=== PATIENT | female | born 1960 | race Caucasian/White ===

== ENCOUNTER 2020-10-18 02:25 | Emergency (ER) | payer OTHER, SELFPAY ==
--- NOTE | 2020-10-18 | ECG_ITS ---
Test Reason : CHEST PAIN Blood Pressure : / mmHG Vent. Rate : 081 BPM Atrial Rate : 081 BPM P-R Int : 172 ms QRS Dur : 092 ms QT Int : 398 ms P-R-T Axes : 054 067 064 degrees QTc Int : 462 ms Normal sinus rhythm Normal ECG When compared with ECG of 18-OCT-2020 02:31, No significant change was found Referred By: Kristina Stauffer Electronically Signed By:FREDDIE BROOKS
--- NOTE | 2020-10-18 | ECG_ITS ---
Test Reason : CHEST PAIN Blood Pressure : / mmHG Vent. Rate : 078 BPM Atrial Rate : 078 BPM P-R Int : 160 ms QRS Dur : 098 ms QT Int : 384 ms P-R-T Axes : 047 050 054 degrees QTc Int : 437 ms Normal sinus rhythm Possible Left atrial enlargement Borderline ECG When compared with ECG of 17-JUL-2016 09:20, No significant change was found Referred By: Kristina Stauffer Electronically Signed By:FREDDIE BROOKS
--- NOTE | ~2020-10-18 | XR_ITS ---
EXAMINATION: XR CHEST CLINICAL INFORMATION: Chest pain COMPARISON: 01/10/2020 TECHNIQUE: Frontal view of the chest was obtained. FINDINGS: Cardiac leads overlie the chest. The lungs are well expanded. Bronchial wall thickening noted. There is no focal consolidation, edema, or effusion. No pneumothorax. The cardiomediastinal silhouette is within normal limits. No acute osseous abnormality. XR/XR chest 1V IMPRESSION: Bronchial wall thickening can be seen with a small airways process such as asthma or atypical/viral infection. .
[2020-10-18 02:36] VITALS: BP 159/85; PULSE 78; RESP 18; TEMP 36.2; O2SAT 93; BMI 44.7
[2020-10-18 02:49] VITALS: BP 189/83; PULSE 78; RESP 18; O2SAT 96
[2020-10-18 03:11] LABS: Basophils Absolute Auto 0.1 X10*3/uL (0.0-0.2); Basophils Percent Auto 0.5 % (0-2); Eosinophils Absolute Auto 0.2 X10*3/uL (0.0-0.4); Eosinophils Percent Auto 2.4 % (0-4); Hematocrit 44.2 % (37-47); Hemoglobin 14.7 g/dl (12.0-16.0); Imm Gran Abs Auto 0.05 X10*3/uL (0.00-0.03); Imm Gran Pct Auto 0.5 % (0.0-0.4); Lymphocytes Absolute Auto 1.7 X10*3/uL (1.2-4.9); Lymphocytes Percent Auto 18.6 % (20-40); MANUAL DIFF FLAG NO; Mean Corpuscular HGB Conc 33.3 g/dl (31.0-35.0); Mean Corpuscular Volume 84.2 fL (80-98); Mean Platelet Volume 10.3 fL (9.4-12.3); Monocytes Absolute Auto 0.4 X10*3/uL (0.1-1.2); Monocytes Percent Auto 4.6 % (2-11); Neutrophils Absolute Auto 6.7 X10*3/uL (2.0-8.3); Neutrophils Percent Auto 73.4 % (45-73); Platelet Count 365 X10*3/uL (160-400); Red Blood Count 5.25 X10*6/uL (4.20-5.50); Red Cell Distribution Width 14.8 % (11.0-16.0); White Blood Count 9.2 X10*3/uL (4.8-10.8)
--- NOTE | 2020-10-18 03:33 | ED.CHESTPAIN ---
HPI - Chest Pain General Chief Complaint: Chest Pain Stated Complaint: chest pain Time Seen by Provider: 10/18/20 03:28 Source: patient Mode of arrival: EMS Limitations: no limitations History of Present Illness HPI narrative: Patient comes emergency room complaining of chest pain. Patient states 2 hours ago she woke up to go to the restroom, and noticed that she had chest pain, and right arm heaviness. Patient took a nitroglycerin tablet, but tablet is old, already . Patient to get any ways. Patient states she is complaining with her medications, takes Brilinta at home. Patient states she has history of an IL, needed to stents in the past. At this time patient denies any shortness of breath. Patient states that since she got here the chest pain is gradually decreasing, now is 3/10 mild discomfort. Otherwise feeling well. Related Data Previous Rx's Medication Instructions Recorded amlodipine 10 mg tablet 10 mg PO DAILY #30 cap 03/25/20 metoprolol tartrate 100 mg tablet 100 mg PO BID 30 Days #60 cap 03/25/20 levothyroxine 88 mcg tablet 88 mcg PO DAILY 90 Days #90 tab 05/25/20 Allergies Allergy/AdvReac Type Severity Reaction Status Date / Time acetaminophen [From PERCOCET] Allergy Unknown N/V Verified 10/18/20 02:36 oxycodone [From PERCOCET] Allergy Unknown N/V Verified 10/18/20 02:36 Sulfa (Sulfonamide Allergy Unknown UNK, rash Verified 10/18/20 02:36 Antibiotics) [SULFA (SULFONAMIDE ANTIBIOTICS)] Review of Systems Review of Systems: Constitutional : No Weight loss, No Fever, No Chills, No Night Sweats, No Fatigue, No Malaise ENT/Mouth : No Hearing loss, No Ear Pain, No Nasal Congestion, No Sinus Pain, No Hoarseness, No sore throat, No Rhinorrhea, No Swallowing Difficulty Eyes: No Eye Pain, No Swelling, No Redness, No Foreign Body, No Discharge, No Vision Changes Cardiovascular : Complaining of substernal chest pain and right arm heaviness, No SOB, No Dyspnea on Exertion, No Orthopnea, No Edema, No Palpitations Respiratory : No Cough, No Sputum, No Wheezing, No Smoke Exposure, No Dyspnea Gastrointestinal : No Nausea, No Vomiting, No Diarrhea, No Constipation, No abdominal Pain, No Hematochezia, No Melena Genitourinary : no irregular bleeding, No Dysuria, No Urinary Frequency, No Hematuria, No Urinary Incontinence, No Urgency, No Flank Pain, No Urinary Flow Changes, No Hesitancy Musculoskeletal : No joint pain, No Myalgias, No Joint Swelling Skin : No Skin Lesions, No rash Neuro : No Weakness, No Numbness, No Paresthesias, No Loss of Consciousness, No Dizziness, No Headache Psych : No Anxiety/Panic, No Depression, No SI/HI/AH/VH, No Social Issues, Heme/Lymph: No Bruising, No Bleeding,No Lymphadenopathy Endocrine : No Polyuria, No Polydipsia, No Temperature Intolerance [facility] Past Medical History Medical History (Updated 10/18/20 @ 06:50 by Kristina Stauffer MD) 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 STEMI (ST elevation myocardial infarction) Social History Social History Patient Tobacco Use Status: Never used Tobacco Smoked in Last 30 Days: No Use of substances other than those prescribed or required for medical reasons: Yes Substance Use Type: Marijuana Substance Use Frequency: Occasionally Any prior treatment program specific to substance use: No Advance Directives: No Advance Directives Information Provided: No Patient : No Physical Exam Vital Signs: Vital Signs: Last Vital Signs Temp 97.2 F 10/18/20 02:36 Pulse 69 10/18/20 05:44 Resp 18 10/18/20 05:44 BP 156/70 H 10/18/20 05:44 Pulse Ox 96 10/18/20 05:44 Body Mass Index 44.7 Appearance: Alert. Oriented X3. No acute distress. Eyes: Pupils equal, round and reactive to light. ENT: Pharynx normal. Neck: Normal inspection. Neck supple. No lymph nodes noted. No crepitus CVS: Normal heart rate and rhythm. Pulses normal. Normal S1 and S2 Respiratory: No respiratory distress. Breath sounds normal. No Wheezing. No rales Abdomen: Soft and nontender. No rigidity. No distention. good BS x4 Skin: Skin warm and dry. Normal skin color. Normal skin turgor. Extremities: No lower extremity edema. No lower extremity edema. No Lacerations. No Rash Neuro: Oriented X 3. No motor deficit. No sensory deficit. Moving all extermities. No slurred speech. Course Course Course Narrative: Patient is asymptomatic. Patient's troponin went from 4.8-34.8 in 3 hours. Physician ulceration started at 5 in the morning. Order is a late entry. The 3rd troponin is due at 09:00, patient's vitals are stable, blood pressure 156/70, heart rate 69, oxygen saturation 96% on room air. Blood glucose 206 Sign-out given to Dr. Jamila TEAGUE - Chest Pain Lab Data Result diagrams: 10/18/20 03:05 10/18/20 03:05 Labs: Lab Results 10/18/20 10/18/20 10/18/20 Range/Units 03:05 03:05 03:05 WBC 9.2 (4.8-10.8) X10*3/uL RBC 5.25 (4.20-5.50) X10*6/uL Hgb 14.7 (12.0-16.0) g/dl Hct 44.2 (37-47) % MCV 84.2 (80-98) fL MCH 28.0 (27.0-33.0) pg MCHC 33.3 (31.0-35.0) g/dl RDW 14.8 (11.0-16.0) % Plt Count 365 (160-400) X10*3/uL MPV 10.3 (9.4-12.3) fL Immature Gran % (Auto) 0.5 H (0.0-0.4) % Neut % (Auto) 73.4 H (45-73) % Lymph % (Auto) 18.6 L (20-40) % Ocean % (Auto) 4.6 (2-11) % Eos % (Auto) 2.4 (0-4) % Baso % (Auto) 0.5 (0-2) % Lymph # (Auto) 1.7 (1.2-4.9) X10*3/uL Ocean # (Auto) 0.4 (0.1-1.2) X10*3/uL Eos # (Auto) 0.2 (0.0-0.4) X10*3/uL Baso # (Auto) 0.1 (0.0-0.2) X10*3/uL Abs Immat Gran (auto) 0.05 H (0.00-0.03) X10*3/uL Absolute Neuts (auto) 6.7 (2.0-8.3) X10*3/uL Absolute Nucleated RBC 0.000 (0.0-0.012) X10*3/uL Nucleated RBC % (auto) 0.0 (0.0-0.2) /100WBC Hold Blue Top SEE NOTE Sodium 135 (135-145) mmol/L Potassium 4.1 (3.3-5.1) mmol/L Chloride 100 (96-108) mmol/L Carbon Dioxide 22 (22-29) mmol/L Anion Gap 17 (12-20) BUN 15 (9-16) mg/dL Creatinine 0.83 (0.5-1.4) mg/dL Estim Creat Clear Calc 96.7 Estimated GFR > 60 Random Glucose 361 H* (60-115) mg/dL Calcium 9.3 (8.4-10.2) mg/dL Troponin I High Sens (<3.5-17.0) ng/L 10/18/20 10/18/20 Range/Units 03:05 05:58 WBC (4.8-10.8) X10*3/uL RBC (4.20-5.50) X10*6/uL Hgb (12.0-16.0) g/dl Hct (37-47) % MCV (80-98) fL MCH (27.0-33.0) pg MCHC (31.0-35.0) g/dl RDW (11.0-16.0) % Plt Count (160-400) X10*3/uL MPV (9.4-12.3) fL Immature Gran % (Auto) (0.0-0.4) % Neut % (Auto) (45-73) % Lymph % (Auto) (20-40) % Ocean % (Auto) (2-11) % Eos % (Auto) (0-4) % Baso % (Auto) (0-2) % Lymph # (Auto) (1.2-4.9) X10*3/uL Ocean # (Auto) (0.1-1.2) X10*3/uL Eos # (Auto) (0.0-0.4) X10*3/uL Baso # (Auto) (0.0-0.2) X10*3/uL Abs Immat Gran (auto) (0.00-0.03) X10*3/uL Absolute Neuts (auto) (2.0-8.3) X10*3/uL Absolute Nucleated RBC (0.0-0.012) X10*3/uL Nucleated RBC % (auto) (0.0-0.2) /100WBC Hold Blue Top Sodium (135-145) mmol/L Potassium (3.3-5.1) mmol/L Chloride (96-108) mmol/L Carbon Dioxide (22-29) mmol/L Anion Gap (12-20) BUN (9-16) mg/dL Creatinine (0.5-1.4) mg/dL Estim Creat Clear Calc Estimated GFR Random Glucose (60-115) mg/dL Calcium (8.4-10.2) mg/dL Troponin I High Sens 4.8 34.8 H* D (<3.5-17.0) ng/L ECG Data ECG #1: Attestation: I personally reviewed and interpreted this ECG as follows: (Heart rate 78, sinus rhythm, no ST segment depression or elevation, no T-wave inversion. QTC 437) Discharge Plan Discharge Clinical Impression: Chest pain, Acute hyperglycemia Prescriptions: No Action amlodipine 10 mg tablet 10 mg PO DAILY Qty: 30 RF: 6 metoprolol tartrate 100 mg tablet 100 mg PO BID 30 Days Qty: 60 RF: 6 levothyroxine 88 mcg tablet 88 mcg PO DAILY 90 Days Qty: 90 RF: 1
[2020-10-18 03:50] LABS: Troponin-I High Sensitivity 4.8 ng/L (<3.5-17.0)
[2020-10-18 03:55] LABS: Anion Gap 17 (12-20); Blood Urea Nitrogen 15 mg/dL (9-16); Calcium 9.3 mg/dL (8.4-10.2); Carbon Dioxide 22 mmol/L (22-29); Chloride 100 mmol/L (96-108); Creatinine Clr Calc Pharmacy 96.7; Estimated Glomerular Filt Rate > 60; Glucose Random 361 mg/dL (60-115); Potassium 4.1 mmol/L (3.3-5.1); Sodium 135 mmol/L (135-145)
[2020-10-18] MEDS: Aspirin Enteric Coated 325 MG TABLET.DR PO (04:04)
[2020-10-18] MEDS: Insulin Regular, Human 100 UNIT/ML 3 ML VIAL 10 UNIT IVPUSH (05:41)
[2020-10-18] MEDS: 0.9 % Sodium Chloride 1,000 ML 999 ML IVCONT (05:43)
[2020-10-18 05:44] VITALS: BP 156/70; PULSE 69; RESP 18; O2SAT 96
[2020-10-18 06:40] LABS: Troponin-I High Sensitivity 34.8 ng/L (<3.5-17.0)
[2020-10-18 06:51] LABS: Glucose, Whole Blood 208 mg/dL (60-115)
[2020-10-18 07:22] VITALS: BMI 47.9
[2020-10-18 07:30] VITALS: BP 172/74; PULSE 80; RESP 19; O2SAT 95
[2020-10-18 07:48] LABS: Prothrombin Time 11.4 SEC (10.8-13.0)
[2020-10-18 07:50] LABS: COVID-19 Test Negative (Negative); IDNOW Serial# 9DD0AD1C
[2020-10-18 07:51] LABS: Partial Thromboplastin Time 31.6 SEC (24.1-38.0)
[2020-10-18] MEDS: Heparin Sodium,Porcine 5,000 UNIT/ML VIAL 4000 UNIT IVPUSH (07:51)
[2020-10-18] MEDS: Heparin Sodium,Porcine/1/2NS 25,000 UNIT/250 ML IV.SOLN 10 UNIT IVCONT (07:51)
[2020-10-18 07:57] LABS: Glucose, Whole Blood 217 mg/dL (60-115)
--- NOTE | 2020-10-18 08:12 | PC.NURSE ---
HEPARIN DRIP STARTED, PLAN FOR TRANSFER TO [facility]. PATIENT AWARE.
--- NOTE | 2020-10-18 08:35 | PC.NURSE ---
cardiology at bedside with patient
--- NOTE | 2020-10-18 08:46 | PC.NURSE ---
pt accepted at [facility] 7 rm [id number] [phone]
[2020-10-18 08:47] VITALS: BP 181/67; PULSE 77
[2020-10-18] MEDS: amLODIPine Besylate 10 MG TABLET PO (08:47)
[2020-10-18] MEDS: Metoprolol Tartrate 100 MG TABLET PO (08:47)
[2020-10-18 09:12] LABS: INTERNATIONAL NORM RATIO 1.1 (0.9-1.1); Prothrombin Time 12.6 SEC (10.8-13.0)
--- NOTE | 2020-10-18 09:14 | PC.NURSE ---
call was made to [facility] for report on transfer, RN to call back. EMS here for pt transfer.
--- NOTE | 2020-10-18 09:20 | PM.CNCAR ---
History of Present Illness History of Present Illness Date of Service: 10/18/20 Consult reason: chest pain Chief complaint: chest pain Narrative: This is a cardiology consultation regarding chest pain and elevated troponins. Patient has a history of coronary disease. She initially underwent cardiac catheterization more than 10 years ago in [facility] that apparently revealed nonobstructive disease but patient and no interventions were performed. Subsequently, she had another cardiac catheterization in 2017. At that time, she received drug-eluting stents in the LAD/Cx. Is She states that she was doing fine all along. Last night around 01:00 o'clock or so she developed chest pain that radiated to the right arm. Her right arm felt very heavy. Chest pain itself felt like a pressure. Nitro did not help. Then she was seen in the ER and it seems as though the pain lasted for about 1-2 hours. Currently she is completely pain free. Otherwise she is fairly active without any specific concerns. She states that since the last stent she did have any cardiac issues whatsoever and she follows up with . Review of Systems Review of Systems: Yes all other systems are reviewed and are negative Cardiovascular: Cardiovascular: Reports as per HPI, Reports no additional cardiovascular complaints, Denies acrocyanosis, Denies cool extremities, Denies painful fingertips, Reports chest pain, Reports chest pain at rest, Denies diaphoresis, Denies syncope, Denies irregular heart rhythm, Denies claudication, Denies leg edema, Denies lightheadedness, Denies palpitations and Denies dyspnea Respiratory: Respiratory: Denies dyspnea Neurologic: Denies syncope Endocrine: Endocrine: Denies palpitations [facility] Past Medical History Medical History (Updated 10/18/20 @ 09:47 by Maxx Tracey MD) Atherosclerotic cardiovascular disease Essential hypertension 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 STEMI (ST elevation myocardial infarction) Social History Social History Patient Tobacco Use Status: Never used Tobacco Smoked in Last 30 Days: No Use of substances other than those prescribed or required for medical reasons: Yes Substance Use Type: Marijuana Substance Use Frequency: Occasionally Any prior treatment program specific to substance use: No Advance Directives: No Advance Directives Information Provided: No Patient : No Meds Allergies Allergy/AdvReac Type Severity Reaction Status Date / Time acetaminophen [From PERCOCET] Allergy Unknown N/V Verified 10/18/20 02:36 oxycodone [From PERCOCET] Allergy Unknown N/V Verified 10/18/20 02:36 Sulfa (Sulfonamide Allergy Unknown UNK, rash Verified 10/18/20 02:36 Antibiotics) [SULFA (SULFONAMIDE ANTIBIOTICS)] Active Medications: Home medications reviewed. Physical Exam Vital Signs: Vital Signs: Last Vital Signs Temp 97.2 F 10/18/20 02:36 Pulse 77 10/18/20 08:47 Resp 19 10/18/20 07:30 BP 181/67 H 10/18/20 08:47 Pulse Ox 95 10/18/20 07:30 Body Mass Index 47.9 Const: General: cooperative, comfortable and no acute distress Orientation/consciousness: patient oriented x3 HENMT: Other: Unremarkable Neck: Neck: Yes normal visual inspection Chest: Chest palpation & inspection: normal inspection of the chest Resp: Auscultation: clear to auscultation bilaterally, no crackles and no wheezes Cardio: Jugular venous distension: no JVD Palpation: normal PMI Heart sounds: S1 normal heart sound present, S2 normal heart sound present, no gallops, no murmurs and no rubs GI: Palpation (GI): Soft to palpation Back/Spine/Pelvis: Other: unremarkable Skin: General skin exam: no rashes or lesions noted Neuro: General: patient oriented x3 Extrem: General: Yes no clubbing, cyanosis or edema Psych: Mental Status: mental status grossly normal Results Labs and Meds Result diagrams: 10/18/20 03:05 10/18/20 03:05 Lab results: Laboratory Results - last 24 hr 10/18/20 10/18/20 10/18/20 03:05 03:05 03:05 WBC 9.2 RBC 5.25 Hgb 14.7 Hct 44.2 MCV 84.2 MCH 28.0 MCHC 33.3 RDW 14.8 Plt Count 365 MPV 10.3 Immature Gran % (Auto) 0.5 H Neut % (Auto) 73.4 H Lymph % (Auto) 18.6 L Coles % (Auto) 4.6 Eos % (Auto) 2.4 Baso % (Auto) 0.5 Lymph # (Auto) 1.7 Coles # (Auto) 0.4 Eos # (Auto) 0.2 Baso # (Auto) 0.1 Abs Immat Gran (auto) 0.05 H Absolute Neuts (auto) 6.7 Absolute Nucleated RBC 0.000 Nucleated RBC % (auto) 0.0 PT Cancelled INR Cancelled APTT Cancelled Hold Blue Top Cancelled Sodium 135 Potassium 4.1 Chloride 100 Carbon Dioxide 22 Anion Gap 17 BUN 15 Creatinine 0.83 Estim Creat Clear Calc 96.7 Estimated GFR > 60 POC Glucose Random Glucose 361 H* Calcium 9.3 Troponin I High Sens COVID-19 (LEONEL) [employer] 10/18/20 10/18/20 10/18/20 03:05 05:58 06:46 WBC RBC Hgb Hct MCV MCH MCHC RDW Plt Count MPV Immature Gran % (Auto) Neut % (Auto) Lymph % (Auto) Coles % (Auto) Eos % (Auto) Baso % (Auto) Lymph # (Auto) Coles # (Auto) Eos # (Auto) Baso # (Auto) Abs Immat Gran (auto) Absolute Neuts (auto) Absolute Nucleated RBC Nucleated RBC % (auto) PT INR APTT Hold Blue Top Sodium Potassium Chloride Carbon Dioxide Anion Gap BUN Creatinine Estim Creat Clear Calc Estimated GFR POC Glucose 208 H Random Glucose Calcium Troponin I High Sens 4.8 34.8 H* D COVID-19 (LEONEL) DX [facility] 10/18/20 10/18/20 10/18/20 07:24 07:26 07:48 WBC RBC Hgb Hct MCV MCH MCHC RDW Plt Count MPV Immature Gran % (Auto) Neut % (Auto) Lymph % (Auto) Coles % (Auto) Eos % (Auto) Baso % (Auto) Lymph # (Auto) Coles # (Auto) Eos # (Auto) Baso # (Auto) Abs Immat Gran (auto) Absolute Neuts (auto) Absolute Nucleated RBC Nucleated RBC % (auto) PT 11.4 INR 1.0 APTT 31.6 Hold Blue Top Sodium Potassium Chloride Carbon Dioxide Anion Gap BUN Creatinine Estim Creat Clear Calc Estimated GFR POC Glucose 217 H Random Glucose Calcium Troponin I High Sens COVID-19 (LEONEL) Negative [facility] See Note 10/18/20 08:58 WBC RBC Hgb Hct MCV MCH MCHC RDW Plt Count MPV Immature Gran % (Auto) Neut % (Auto) Lymph % (Auto) Coles % (Auto) Eos % (Auto) Baso % (Auto) Lymph # (Auto) Coles # (Auto) Eos # (Auto) Baso # (Auto) Abs Immat Gran (auto) Absolute Neuts (auto) Absolute Nucleated RBC Nucleated RBC % (auto) PT 12.6 INR 1.1 APTT Hold Blue Top Sodium Potassium Chloride Carbon Dioxide Anion Gap BUN Creatinine Estim Creat Clear Calc Estimated GFR POC Glucose Random Glucose Calcium Troponin I High Sens COVID-19 (LEONEL) COVID-19 Clin Com ECG Attestation: I personally reviewed and interpreted this ECG as follows: Interpretation: EKG with sinus rhythm at 81/Min; no significant ST-T changes and otherwise unremarkable. Imaging Radiologist's impression: Impressions Chest X-Ray 10/18/20 02:55 IMPRESSION: Bronchial wall thickening can be seen with a small airways process such as asthma or atypical/viral infection. . Assessment and Plan (1) NSTEMI (non-ST elevated myocardial infarction): Status: Acute (2) Atherosclerotic cardiovascular disease: Status: Acute (3) Essential hypertension: Status: Acute Her blood pressure is running on the higher side and most recent blood pressure is 181/67 mm Hg. Last cardiac catheterization from 2017 reviewed. She had a 80% lesion in the mid LAD as well as mid circumflex for which she received drug-eluting stents. She had moderate disease in RCA and 60% PDA lesion. Troponins so far are 4.8, 34.8 and 76.4. Clearly, she has having a non ST elevation myocardial infarction. We can keep her on IV heparin drip. Aspirin, beta-blockers and statins. Her blood pressure is running on the higher side and she can receive her home doses of medications including amlodipine. Otherwise, patient is to be transferred to [facility] for cardiac catheterization. 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 Discussed with ER physician, . Procedures Date of Service Date of Service: 10/18/20
[2020-10-18 09:46] LABS: Troponin-I High Sensitivity 76.4 ng/L (<3.5-17.0)
== END 2020-10-18 09:16 | disposition short-term general hospital (02) ==
PROVIDERS: Emergency Medicine; Emergency Provider Emergency Medicine; PCP Internal Medicine
DX: R07.9 Chest pain, unspecified (principal); E11.65 Type 2 diabetes mellitus with hyperglycemia; Z20.822 Contact with and (suspected) exposure to COVID-19; F12.90 Cannabis use, unspecified, uncomplicated; I10 Essential (primary) hypertension; I25.2 Old myocardial infarction; I25.10 Atherosclerotic heart disease of native coronary artery without angina pectoris; Z79.899 Other long term (current) drug therapy
CPT/HCPCS: 36415; 71045; 80048; 82947; 84484; 85025; 85610; 85730; 87635; 93005; 96361; 96374; 96375; 96376; 99285; 99291

== ENCOUNTER 2021-02-08 07:10 | Outpatient (REF) | payer OTHER, SELFPAY ==
[2021-02-08 08:42] LABS: Thyroid Stimulating Hormone 2.08 uIU/mL (0.32-4.0)
[2021-02-08 10:17] LABS: Alanine Aminotransferase 29 U/L (0-31); Albumin Level 4.3 g/dL (3.5-5.0); Alkaline Phosphatase 142 U/L (39-117); Anion Gap 17 (12-20); Aspartate Amino Transferase 27 U/L (5-31); Bilirubin Total 0.6 mg/dL (0.0-1.0); Blood Urea Nitrogen 17 mg/dL (9-16); Calcium 9.4 mg/dL (8.4-10.2); Carbon Dioxide 24 mmol/L (22-29); Chloride 104 mmol/L (96-108); Cholesterol 142 mg/dL; Estimated Glomerular Filt Rate > 60; Glucose Fasting 121 mg/dL (60-99); HDL Cholesterol 35 mg/dL; LDL Cholesterol Calculated 72 mg/dl; Potassium 4.5 mmol/L (3.3-5.1); Sodium 140 mmol/L (135-145); Total Protein 7.8 g/dL (6.5-8.0); Triglycerides 179 mg/dL
[2021-02-08 10:28] LABS: Creatinine Urine 94.36 mg/dL; Microalbum/Creatinine Ratio Ur 28.6 ug/mg cr
[2021-02-08 10:50] LABS: Estimated Average Glucose 128 mg/dL; Hemoglobin A1c % 6.1 %
== END 2021-02-08 07:11 | disposition home or self-care (01) ==
LOC: HO.LAB 07:10
PROVIDERS: PCP Internal Medicine; Visit Provider Internal Medicine
DX: E03.9 Hypothyroidism, unspecified (principal); E78.5 Hyperlipidemia, unspecified; I21.4 Non-ST elevation (NSTEMI) myocardial infarction; E11.40 Type 2 diabetes mellitus with diabetic neuropathy, unspecified
CPT/HCPCS: 36415; 80053; 80061; 82043; 83036; 84443

== ENCOUNTER 2021-04-04 14:21 | Outpatient (REF) | payer OTHER, SELFPAY ==
--- NOTE | ~2021-04-04 | US_ITS ---
EXAMINATION: US DIAGNOSTIC ULTRASOUND BREAST, RIGHT CLINICAL INFORMATION: Prominent axillary lymph nodes. COMPARISON: Mammography of same day. TECHNIQUE: Ultrasound of the breast is performed with real-time murillo scale imaging and color Doppler. FINDINGS: Targeted right breast ultrasound demonstrated a 4 x 3 mm was circumscribed density 10:00 position adjacent to vessel and corresponding in size and location to the mammographic finding. This has a fatty cleft and hilar vascularity consistent with a normal intramammary lymph node. About the axilla there are multiple prominent lymph nodes with cortical thickness is up to 5 mm in diameter but which does not demonstrate any lobulation and there are normal fatty clefts and vasculature present. Results are discussed with the patient at time of visit. US/US breast RT limited IMPRESSION: No specific mammographic or ultrasound findings to suggest malignancy. Prominent right axillary lymph nodes. ASSESSMENT: BI-RADS 2: Benign RECOMMENDATION: Routine annual mammography screening.
--- NOTE | ~2021-04-04 | MM_ITS ---
EXAMINATION: MM DIAGNOSTIC DIGITAL BREAST TOMOSYNTHESIS, BILATERAL US BREAST TARGETED, BILATERAL CLINICAL INFORMATION: Left breast lump 3 o'clock position. The lifetime risk of breast cancer based on the Tyrer-Cuzick Model is 20%. Additional annual screening with breast MRI may be of benefit in women with a Score of 20% or greater. COMPARISON: Mammography: None. TECHNIQUE: Digital breast tomosynthesis is performed in both the craniocaudal and mediolateral oblique views along with computer-aided detection (CAD). Synthesized 2-D images are generated from the tomosynthesis. Targeted bilateral breast ultrasound. FINDINGS: The breasts are almost entirely fatty (ACR BI-RADS breast composition Category a). Within the deep upper outer aspect of the right breast, there is a circumscribed 6 x 4 mm density without definite fatty cleft lying approximately 16 cm from the nipple. No suspicious grouping of microcalcifications identified. There are prominent axillary lymph nodes some of which appear to have thickened cortices. Left breast study did not demonstrate any abnormal dominant mass or suspicious grouping of microcalcifications. Targeted right breast ultrasound demonstrated a 4 x 3 mm well circumscribed density 10 o'clock position adjacent to vessel and corresponding in size and location to the mammographic finding. This has a fatty cleft and hilar vascularity consistent with a normal intramammary lymph node. About the axilla, there are multiple prominent lymph nodes with cortical thickness up to 5 mm in diameter but which does not demonstrate any lobulation, and there are normal fatty clefts and vasculature present. Targeted ultrasound evaluation to palpable region left breast 3 o'clock position 11 cm from the nipple, demonstrated a dermal lesion measuring approximately 10 x 2 mm in size. No suspicious cystic or solid mass is identified. No region of abnormal distal sound shadowing is seen. Results are discussed with the patient at time of visit. MM/MM tomosynthesis diagnostic BI IMPRESSION: No specific mammographic or ultrasound findings to suggest malignancy. Prominent right axillary lymph nodes. ASSESSMENT: BI-RADS 2: Benign. RECOMMENDATION: Routine annual mammography screening. This patient's information was entered into a reminder system with a target due date for their next mammogram.
--- NOTE | ~2021-04-04 | US_ITS ---
EXAMINATION: US DIAGNOSTIC ULTRASOUND BREAST, LEFT CLINICAL INFORMATION: Palpable abnormality. COMPARISON: Mammography of same day. TECHNIQUE: Ultrasound of the breast is performed with real-time murillo scale imaging and color Doppler. FINDINGS: Targeted ultrasound evaluation to palpable region left breast 3:00 position 11 cm from the nipple demonstrated a dermal lesion measuring approximately 10 x 2 mm in size. No suspicious cystic or solid mass is identified. No region of abnormal distal sound shadowing is seen. Results are discussed with the patient at time of visit. US/US breast LT limited IMPRESSION: No specific mammographic or ultrasound findings to suggest malignancy. Prominent right axillary lymph nodes. ASSESSMENT: BI-RADS 2: Benign RECOMMENDATION: Routine annual mammography screening.
== END 2021-04-04 14:22 | disposition home or self-care (01) ==
LOC: HO.MAMMO 14:21
PROVIDERS: Visit Provider Internal Medicine
DX: N63.25 Unspecified lump in the left breast, overlapping quadrants (principal); R59.0 Localized enlarged lymph nodes
CPT/HCPCS: 76642; 77062; 77066

== ENCOUNTER → 2021-07-15 07:41 | Outpatient (BNVA) | payer OTHER, SELFPAY | PROVIDERS: Referring Provider Internal Medicine; Visit Provider Psychiatry & Neurology Neurology ==

== ENCOUNTER 2021-08-16 06:57 | Outpatient (REF) | payer OTHER, SELFPAY ==
[2021-08-16 08:23] LABS: Rheumatoid Factor 18.1 IU/mL (<15.0)
[2021-08-16 08:24] LABS: Cholesterol 153 mg/dL; HDL Cholesterol 37 mg/dL; LDL Cholesterol Calculated 85 mg/dl; Triglycerides 157 mg/dL
[2021-08-16 08:47] LABS: Creatinine Urine 83.99 mg/dL; Microalbum/Creatinine Ratio Ur 46.4 ug/mg cr
[2021-08-16 08:47] LABS: Thyroid Stimulating Hormone 2.19 uIU/mL (0.32-4.0)
[2021-08-19 21:52] LABS: Anti Nuclear Antibody Screen POSITIVE (NEGATIVE)
[2021-08-21 12:31] LABS: Vitamin D 25-OH, D2 <4 ng/mL; Vitamin D 25-OH, D3 17 ng/mL; Vitamin D 25-OH, Total 17 ng/mL (30-100)
== END 2021-08-16 06:58 | disposition home or self-care (01) ==
LOC: HO.LAB 06:57
PROVIDERS: Nurse Practitioner Family; PCP Internal Medicine; Visit Provider Internal Medicine
DX: E78.5 Hyperlipidemia, unspecified (principal); E11.9 Type 2 diabetes mellitus without complications; R21 Rash and other nonspecific skin eruption; E03.9 Hypothyroidism, unspecified; E55.9 Vitamin D deficiency, unspecified
CPT/HCPCS: 36415; 80061; 82043; 82306; 84443; 86038; 86039; 86431

== ENCOUNTER → 2021-08-27 15:49 | Outpatient (REF) | payer OTHER, SELFPAY | LOC: HO.SL 15:49 | PROVIDERS: PCP Internal Medicine; Visit Provider Psychiatry & Neurology Neurology | DX: G47.33 Obstructive sleep apnea (adult) (pediatric) (principal); R06.83 Snoring; R40.0 Somnolence | CPT/HCPCS: 95806 ==

== ENCOUNTER 2021-09-05 14:16 | Outpatient (REF) | payer OTHER, SELFPAY ==
[2021-09-11 04:28] LABS: HPV mRNA E6/E7 rflx Not Detected (Not Detected)
== END 2021-09-05 14:17 | disposition home or self-care (01) ==
LOC: HO.LAB 14:16
PROVIDERS: Visit Provider Advanced Practice Midwife
DX: Z01.411 Encounter for gynecological examination (general) (routine) with abnormal findings (principal); Z11.51 Encounter for screening for human papillomavirus (HPV); R10.2 Pelvic and perineal pain; R21 Rash and other nonspecific skin eruption; Z80.9 Family history of malignant neoplasm, unspecified
CPT/HCPCS: 87624; 88142

== ENCOUNTER 2021-10-06 14:15 | Outpatient (REF) | payer OTHER, SELFPAY ==
--- NOTE | ~2021-10-06 | XR_ITS ---
EXAMINATION: XR SACROILIAC JOINTS CLINICAL INFORMATION: Lower back pain. COMPARISON: None TECHNIQUE: AP and bilateral Judet views of the sacroiliac joints FINDINGS: Bony alignment and mineralization are normal. No fracture. Alignment is anatomic. Sacroiliac joint spaces are well-maintained without erosions or surrounding sclerosis. There is marked degenerative change of the right hip, with superior joint space narrowing and subchondral cyst formation. There are incompletely characterized degenerative changes of the lower lumbar spine. XR/XR sacroiliac joint min 3V IMPRESSION: 1. Unremarkable bilateral sacroiliac joints. 2. There is marked osteoarthritic change of the right hip. 3. There is degenerative change of the lower lumbar spine.
--- NOTE | ~2021-10-06 | XR_ITS ---
EXAMINATION: XR KNEE, RIGHT CLINICAL INFORMATION: Pain. COMPARISON: Radiographs dated 01/18/2015. TECHNIQUE: AP, lateral, tunnel, and sunrise views of the right knee. FINDINGS: Bones and soft tissues are normal. No fracture or joint effusion. Alignment is anatomic. Joint spaces are well maintained. No abnormal soft tissue calcification. XR/XR knee RT 3V IMPRESSION: Normal right knee.
[2021-10-06 16:39] LABS: MANUAL DIFF FLAG NO
[2021-10-06 16:43] LABS: Basophils Percent Auto 0.4 % (0-2); Eosinophils Absolute Auto 0.2 X10*3/uL (0.0-0.4); Eosinophils Percent Auto 2.6 % (0-4); Hematocrit 43.5 % (37.0-47.0); Hemoglobin 14.2 g/dl (12.0-16.0); Imm Gran Abs Auto 0.05 X10*3/uL (0.00-0.03); Imm Gran Pct Auto 0.7 % (0.0-0.4); Lymphocytes Absolute Auto 1.8 X10*3/uL (1.2-4.9); Lymphocytes Percent Auto 23.4 % (20-40); Mean Corpuscular HGB Conc 32.6 g/dl (31.0-35.0); Mean Corpuscular Volume 85.8 fL (80.0-98.0); Mean Platelet Volume 11.7 fL (9.4-12.3); Monocytes Absolute Auto 0.5 X10*3/uL (0.1-1.2); Monocytes Percent Auto 6.9 % (2-11); Neutrophils Absolute Auto 5.1 x10*3/uL (2.0-8.3); Platelet Count 299 X10*3/uL (160-400); Red Blood Count 5.07 X10*6/uL (4.20-5.50); Red Cell Distribution Width 15.4 % (11.0-16.0); White Blood Count 7.7 X10*3/uL (4.8-10.8)
[2021-10-06 17:10] LABS: Alanine Aminotransferase 40 U/L (0-31); Albumin Level 4.3 g/dL (3.5-5.0); Alkaline Phosphatase 181 U/L (39-117); Anion Gap 14 (12-20); Aspartate Amino Transferase 34 U/L (5-31); Bilirubin Total 0.5 mg/dL (0.0-1.0); Blood Urea Nitrogen 24 mg/dL (9-16); C Reactive Protein 1.07 mg/dL (< or = 0.50); Calcium 10.6 mg/dL (8.4-10.2); Carbon Dioxide 25 mmol/L (22-29); Chloride 105 mmol/L (96-108); Creatinine Clr Calc Pharmacy 85.8; Estimated Glomerular Filt Rate > 60; Glucose Random 118 mg/dL (60-115); Potassium 4.5 mmol/L (3.3-5.1); Sodium 139 mmol/L (135-145); Total Protein 8.5 g/dL (6.5-8.0)
[2021-10-06 17:26] LABS: Erythrocyte Sedimentation Rate 25 MM/HR (0-20)
[2021-11-03 08:49] LABS: Anti DNA DS Antibody <1; SM/Ribonucleoprotein Ab <1.0 NEG; Smith Protein <1.0 NEG
== END 2021-10-06 14:16 | disposition home or self-care (01) ==
LOC: HO.XRAY 14:15
PROVIDERS: PCP Internal Medicine; Visit Provider Internal Medicine Rheumatology
DX: R76.8 Other specified abnormal immunological findings in serum (principal); M25.561 Pain in right knee; M54.50 Low back pain, unspecified
CPT/HCPCS: 36415; 72202; 73562; 80053; 85025; 85652; 86140; 86225; 86235

== ENCOUNTER 2022-01-24 20:42 | Emergency (ER) | payer OTHER, SELFPAY ==
[2022-01-24 22:16] VITALS: BP 164/84; PULSE 87; RESP 20; TEMP 36.9; O2SAT 95; BMI 34.1
[2022-01-24 23:57] VITALS: BP 164/80; PULSE 89; RESP 16; TEMP 36.9; O2SAT 95
[2022-01-25 01:21] VITALS: BP 171/87; PULSE 92; RESP 18; TEMP 36.8; O2SAT 95
--- NOTE | 2022-01-25 01:27 | ED_ITS ---
HPI - General Adult General Chief complaint: General Medical Stated complaint: possible bowel obstruction Time Seen by Provider: 01/25/22 01:27 Source: patient Mode of arrival: ambulatory History of Present Illness HPI narrative: 61-year-old female presents with complaints of 4 days difficulty with having bowel movements, she has tried stool softeners and denies any associated fever, chills, nausea, vomiting and says that this afternoon she uses some rectal suppositories and has had 1 small bowel movement but states that she still feels like there is more . She denies any abdominal distension or urinary pain/burning / frequency. Related Data Home Medications Medication Instructions Recorded Confirmed aspirin 81 mg tablet,delayed 81 mg PO DAILY 10/30/20 12/22/21 release (Adult Low Dose Aspirin) atorvastatin 80 mg tablet 80 mg PO DAILY 10/30/20 12/22/21 isosorbide mononitrate 30 mg 90 mg PO DAILY 10/30/20 12/22/21 tablet,extended release 24 hr diphenhydramine 25 2 tab PO BEDTIME sleep 10/06/21 12/22/21 mg-acetaminophen 500 mg tablet (Tylenol PM Extra Strength) Previous Rx's Medication Instructions Recorded desonide 0.05 % lotion 1 appl topical BEDTIME 14 days #59 07/04/21 mL metoprolol tartrate 50 mg tablet 50 mg PO BID #180 tabs 11/24/21 amlodipine 10 mg tablet 10 mg PO DAILY #30 caps 12/21/21 azithromycin 250 mg tablet 250 mg PO DAILY 5 days #6 tabs 12/22/21 meloxicam 15 mg tablet 15 mg PO DAILY 90 days #90 tabs 12/26/21 levothyroxine 88 mcg tablet 88 mcg PO DAILY #90 tabs 01/12/22 linagliptin 5 mg tablet (Tradjenta) 5 mg PO DAILY #90 tabs 01/12/22 tramadol 50 mg tablet 50 mg PO Q6H PRN pain 30 days #120 01/12/22 tabs Allergies Allergy/AdvReac Type Severity Reaction Status Date / Time oxycodone [From PERCOCET] Allergy Intermediate N/V Verified 01/24/22 22:23 Sulfa (Sulfonamide Allergy Intermediate UNK, rash Verified 01/24/22 22:23 Antibiotics) [SULFA (SULFONAMIDE ANTIBIOTICS)] metformin AdvReac Severe diarrhea Verified 01/24/22 22:23 Review of Systems Review of Systems: Pertinent positives and negatives as stated in HPI 10 point review of systems is otherwise negative. PMFSH Past Medical History Source: nursing notes reviewed Medical History Abscess LORENA positive Atherosclerotic cardiovascular disease Breast lesion Diabetes mellitus Essential hypertension 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 Hypothyroidism Lower back pain Morbid obesity with BMI of 40.0-44.9, adult Pain, joint, knee, right Right knee pain STEMI (ST elevation myocardial infarction) Suppurative hidradenitis Surgical History H/O cardiac catheterization Family History Family History Mother Hypertension Father Heart disease Sister Ovarian cancer Maternal Grandmother Diabetes Other Mental health disorder Substance use disorder Social History Social History Housing: Condominium Alcohol intake: current Alcohol intake frequency: holidays/special occasions only Patient Tobacco Use Status: Former Tobacco user Tobacco use type: Cigarette e-Cigarette/Vaping Use: Never Used Second Hand Smoke Exposure: No Substance Use Type: Marijuana Advance Directives: No Advance Directives Information Provided: No service: No Current occupational status: employed 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 GENERAL: Well developed, well nourished, in no acute distress. HEAD: Normocephalic/atraumatic EYES: PERRLA, EOMI EARS: Ext canals without abnormality OROPHARYNX: no oral lesions noted, posterior pharynx clear LUNGS: Normal breath sounds. No adventitious sounds or accessory muscle use. SpO2<95> CARDIOVASCULAR: Regular rate and rhythm without noted murmurs ABDOMEN: Soft, non-tender, non-distended with bowel sounds. RECTAL: No skin tags, fissures, inflamed external hemorrhoids, initially soft stool and then more proximal firm stool is noted, good rectal tone, no gross blood on tip of finger, there is surrounding erythema to suggest irritation MUSCULOSKELETAL: No tenderness, deformities, or effusions noted on gross inspection. EXTREMITIES: No cyanosis, clubbing or edema. SKIN: Inspection of the skin reveals no rashes NEUROLOGIC: Alert and oriented x 4. Strength and sensation to light touch were grossly intact x 4. Course Course Course Narrative: 61-year-old female with history and clinical presentation consistent with constipation that appears to be gradually improving and likely impending bowel movement. Discussed with patient the need for additional laboratory investigations as well as KUB, she does not feel strongly in pursuing this and based on clinical exam and history I strongly agree as there is no evidence to suggest infection, acute bleeding, obstruction. Patient otherwise appears well and is discharged home in stable condition with strict instructions to return should she develop worsening symptoms. Discharge Plan Discharge Clinical Impression: Constipation, Diabetes mellitus Patient Disposition: Home, Self-Care Instructions: High Fiber Diet (ED), Fleet Enema (ED), Constipation (ED) Additional Instructions: 1. Resume all home medications as prescribed. 2. Recommend increasing water intake, may utilize techniques such as warm bath water or other relax a hernandez methods to help facilitate bowel movement. 3. Follow-up with your physician on Wednesday morning. Do not hesitate to return to the emergency room should you experience any worsening of symptoms. Prescriptions: No Action metoprolol tartrate 50 mg tablet 50 mg PO BID Qty: 180 0RF amlodipine 10 mg tablet 10 mg PO DAILY Qty: 30 6RF meloxicam 15 mg tablet 15 mg PO DAILY 90 Days Qty: 90 1RF Tradjenta 5 mg tablet 5 mg PO DAILY Qty: 90 0RF levothyroxine 88 mcg tablet 88 mcg PO DAILY Qty: 90 0RF tramadol 50 mg tablet 50 mg PO Q6H PRN (Reason: pain) 30 Days Qty: 120 0RF atorvastatin 80 mg tablet 80 mg PO DAILY isosorbide mononitrate 30 mg tablet extended release 24 hr 90 mg PO DAILY aspirin [Adult Low Dose Aspirin] 81 mg tablet,delayed release (DR/EC) 81 mg PO DAILY desonide 0.05 % lotion 1 appl topical BEDTIME 14 Days Qty: 59 0RF azithromycin 250 mg tablet 250 mg PO DAILY 5 Days Qty: 6 0RF Rx Instructions: Take 2 tabs first day, then 1 tab for the next 4 days diphenhydramine-acetaminophen [Tylenol PM Extra Strength] 25-500 mg tablet 2 tab PO BEDTIME Referrals: Lorena Archer MD [Primary Care Provider] -
== END 2022-01-25 01:45 | disposition home or self-care (01) ==
PROVIDERS: Emergency Provider Student in an Organized Health Care Education/Training Program; PCP Internal Medicine
DX: K59.00 Constipation, unspecified (principal); E11.9 Type 2 diabetes mellitus without complications; I10 Essential (primary) hypertension; Z79.82 Long term (current) use of aspirin; Z79.02 Long term (current) use of antithrombotics/antiplatelets; Z79.899 Other long term (current) drug therapy; Z87.891 Personal history of nicotine dependence; E66.9 Obesity, unspecified; Z68.34 Body mass index [BMI] 34.0-34.9, adult
CPT/HCPCS: 99282; 99283

== ENCOUNTER 2022-04-25 07:20 | Outpatient (REF) | payer OTHER, SELFPAY ==
[2022-04-25 08:31] LABS: Alanine Aminotransferase 27 U/L (0-31); Albumin Level 4.2 g/dL (3.5-5.0); Alkaline Phosphatase 125 U/L (39-117); Anion Gap 12 (12-20); Aspartate Amino Transferase 25 U/L (5-31); Bilirubin Total 0.7 mg/dL (0.0-1.0); Blood Urea Nitrogen 26 mg/dL (9-16); Calcium 9.6 mg/dL (8.4-10.2); Carbon Dioxide 28 mmol/L (22-29); Chloride 100 mmol/L (96-108); Cholesterol 152 mg/dL; Estimated Glomerular Filt Rate > 60; Glucose Fasting 101 mg/dL (60-99); HDL Cholesterol 44 mg/dL; LDL Cholesterol Calculated 85 mg/dl; Potassium 4.5 mmol/L (3.3-5.1); Sodium 135 mmol/L (135-145); Total Protein 7.8 g/dL (6.5-8.0); Triglycerides 117 mg/dL; Vitamin D 25-OH Total 37.6 ng/mL (>30)
[2022-04-25 10:06] LABS: Creatinine Urine 68.53 mg/dL; Microalbum/Creatinine Ratio Ur 20.4 ug/mg cr
[2022-04-27 18:54] LABS: Anti DNA DS Antibody 1 IU/mL; SM/Ribonucleoprotein Ab <1.0 NEG AI (<1.0 NEG); Smith Protein <1.0 NEG AI (<1.0 NEG)
== END 2022-04-25 07:21 | disposition home or self-care (01) ==
LOC: HO.LAB 07:20
PROVIDERS: PCP Internal Medicine; Visit Provider Internal Medicine
DX: E78.5 Hyperlipidemia, unspecified (principal); E11.65 Type 2 diabetes mellitus with hyperglycemia; E55.9 Vitamin D deficiency, unspecified; R76.8 Other specified abnormal immunological findings in serum
CPT/HCPCS: 36415; 80053; 80061; 82043; 82306; 86225; 86235

== ENCOUNTER → 2022-08-03 15:27 | Outpatient (BNVA) | payer OTHER, SELFPAY | PROVIDERS: PCP Internal Medicine; Visit Provider Surgery | DX: Z13.89 Encounter for screening for other disorder (principal) ==

== ENCOUNTER 2022-08-22 07:13 | Outpatient (REF) | payer OTHER, SELFPAY ==
[2022-08-22 07:23] LABS: MANUAL DIFF FLAG NO
[2022-08-22 08:24] LABS: Basophils Absolute Auto 0.1 X10*3/uL (0.0-0.2); Basophils Percent Auto 0.9 % (0-2); Eosinophils Absolute Auto 0.3 X10*3/uL (0.0-0.4); Eosinophils Percent Auto 3.3 % (0-4); Hematocrit 46.9 % (37.0-47.0); Hemoglobin 15.5 g/dl (12.0-16.0); Imm Gran Abs Auto 0.03 X10*3/uL (0.00-0.03); Imm Gran Pct Auto 0.4 % (0.0-0.4); Lymphocytes Absolute Auto 2.6 X10*3/uL (1.2-4.9); Lymphocytes Percent Auto 33.1 % (20-40); Mean Corpuscular Hemoglobin 29.4 pg (27.0-33.0); Mean Corpuscular Volume 88.8 fL (80.0-98.0); Mean Platelet Volume 11.3 fL (9.4-12.3); Monocytes Absolute Auto 0.5 X10*3/uL (0.1-1.2); Monocytes Percent Auto 6.5 % (2-11); Neutrophils Absolute Auto 4.3 x10*3/uL (2.0-8.3); Neutrophils Percent Auto 55.8 % (45-73); Platelet Count 294 X10*3/uL (160-400); Red Blood Count 5.28 X10*6/uL (4.20-5.50); White Blood Count 7.8 X10*3/uL (4.8-10.8)
[2022-08-22 08:50] LABS: Creatinine Urine 51.76 mg/dL; Microalbum/Creatinine Ratio Ur 19.3 ug/mg cr
[2022-08-22 09:06] LABS: Alanine Aminotransferase 28 U/L (0-31); Albumin Level 4.2 g/dL (3.5-5.0); Alkaline Phosphatase 100 U/L (39-117); Anion Gap 15 (12-20); Aspartate Amino Transferase 27 U/L (5-31); Bilirubin Total 0.7 mg/dL (0.0-1.0); Blood Urea Nitrogen 23 mg/dL (9-16); Calcium 9.4 mg/dL (8.4-10.2); Carbon Dioxide 25 mmol/L (22-29); Chloride 106 mmol/L (96-108); Cholesterol 183 mg/dL; Estimated Glomerular Filt Rate > 60; Glucose Fasting 93 mg/dL (60-99); HDL Cholesterol 49 mg/dL; LDL Cholesterol Calculated 111 mg/dl; Potassium 4.8 mmol/L (3.3-5.1); Sodium 141 mmol/L (135-145); Total Protein 7.5 g/dL (6.5-8.0); Triglycerides 116 mg/dL
[2022-08-22 09:25] LABS: Thyroid Stimulating Hormone 2.15 uIU/mL (0.32-4.0); Vitamin D 25-OH Total 40.4 ng/mL (>30)
== END 2022-08-22 07:14 | disposition home or self-care (01) ==
LOC: HO.LAB 07:13
PROVIDERS: PCP Internal Medicine; Visit Provider Internal Medicine
DX: E03.9 Hypothyroidism, unspecified (principal); E11.9 Type 2 diabetes mellitus without complications; E55.9 Vitamin D deficiency, unspecified; E78.5 Hyperlipidemia, unspecified; R21 Rash and other nonspecific skin eruption
CPT/HCPCS: 36415; 80053; 80061; 82043; 82306; 84443; 85025

== ENCOUNTER 2023-06-10 16:57 | Outpatient (AMB) | payer OTHER, SELFPAY ==
--- NOTE | 2023-06-10 17:03 | A.OFFPC_ITS ---
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 Accompanied by: Self / Same As Patient Allergies oxycodone [From PERCOCET] Allergy (Intermediate, Verified 06/10/23 17:20) N/V Sulfa (Sulfonamide Antibiotics) [SULFA (SULFONAMIDE ANTIBIOTICS)] Allergy (Intermediate, Verified 06/10/23 17:20) UNK, rash metformin Adverse Reaction (Severe, Verified 06/10/23 17:20) diarrhea Medication List - Last Reconciled 06/10/23 by Lorena Zavaleta MD amlodipine 10 mg PO DAILY aspirin (Adult Low Dose Aspirin) 81 mg PO DAILY atorvastatin 80 mg PO DAILY diphenhydramine-acetaminophen 25-500 mg (Tylenol PM Extra Strength) 2 tabs PO BEDTIME isosorbide mononitrate ER 90 mg PO DAILY levothyroxine 88 mcg PO DAILY linagliptin (Tradjenta) 5 mg PO DAILY meloxicam 15 mg PO DAILY 90 days metoprolol tartrate 50 mg PO BID nirmatrelvir-ritonavir 300 mg (150 mg x 2)-100 mg (Paxlovid) 3 ea PO PER PKG DIR 5 days prednisone 4 tablets x 2 days, then 3 tablets x 2 days, then 2 tablets x 2 days, then 1 tablet x 2 days 8 days Tobacco use date assessed: 06/10/23 Dental Screening Dental Screen Date: 06/10/23 Did you have a dental visit in the last 12 months?: Yes Did you have a dental problem in the last 6 months where you did not have access to dental care?: No Was dental information given to patient?: Patient has dentist HPI HPI Comments History of Present Illness Details This is a 63-year-old female with diabetes mellitus type 2, hypertensio n, hyperlipidemia and hypothyroidism that comes today for follow-up on her conditions. A1c within goal. Blood pressure stable. LDL goal should be less than 70 and lipid panel will be order. TSH will also be order to monitor the thyroid. Complains of right knee pain and walks with a cane for gait stability. The pain also involves the back and the right thigh. She has been seen by ortho that has place local injections that last about 2-3 days and then goes back to pain. She will discuss with ortho her options and let me know if she needs a referral for pain management. No chest pain or shortness of breath. 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 STEMI (ST elevation myocardial infarction) Surgical History Hx of meniscectomy of right knee H/O cardiac catheterization Family History Mother Hypertension Father Heart disease Sister Ovarian cancer Maternal Grandmother Diabetes Other Mental health disorder Substance use disorder Social History Housing: Condominium Alcohol intake: current Alcohol intake frequency: holidays/special occasions on ly Patient Tobacco Use Status: Former Tobacco user Tobacco use type: Cigarette e-Cigarette/Vaping Use: Never Used Second Hand Smoke Exposure: No Substance Use Type: Marijuana service: No Current occupational status: employed 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 1. Little interest or pleasure in doing things: several days 2. Feeling down, depressed, or hopeless: several days 3. Trouble falling or staying asleep, or sleeping too much: not at all 4. Feeling tired or having little energy: not at all 5. Poor appetite or overeating: several days 6. Feeling bad about yourself - or that you are a failure or have let yourself or your family down: not at all 7. Trouble concentrating on things, such as reading the newspaper or watching television: not at all 8. Moving or speaking so slowly that other people could have noticed. Or the opposite - being so fidgety or restless that you have been moving around a lot more than usual: not at all 9. Thoughts that you would be better off or of hurting yourself in some way: not at all Total score: 3 Depression Screening Interpretation: Negative Depression Screening Done: Yes 52130 - PHQ-9 Billing: Yes Source: Developed by Drs. Neo Fountain, Rosmery Mosqueda, Jon Calderon and colleagues, with an educational glendy from [employer]. Thrive Questionnaire Date Thrive assessed: 06/10/23 I am a: Patient What is your living situation today?: I have a steady place to live Within the past 12 months, did the food you bought not last and you didn't have the money to get more?: Never true Within the past 12 months, did you worry whether your food would run out before you got money to buy more?: Never true Do you have trouble paying for medicines?: No Do you have trouble getting transportation to medical appointments?: No Do you have trouble paying your heating and electricity bill?: No Do you have trouble taking care of your child, family member or friend?: No Do you have trouble with day-to-day activities such as bathing, preparing meals, shopping, managing finances, etc.?: No Are you currently unemployed and looking for a job?: No Are you interested in more education?: No Please select the resources that you would like help with: None Currently or been in a relationship where the following occur: no concerns reported THRIVE Score: 0 AUDIT C Alcohol Use Questionnaire (AUDIT-C) 1. How often do you have a drink containing alcohol?: Monthly or less 2. How many drinks containing alcohol do you have on a typical day when you are drinking?: 1 or 2 3. How often do you have six or more drinks on one occasion?: Never Total Score: 1 Score Reviewed/Action Taken: No CHRISTIAN-7 AMB Questionnaire CHRISTIAN-7 Date CHRISTIAN - 7 assessed: 06/10/23 Feeling nervous, anxious, or on edge: 0 = Not at all Not being able to stop or control worryin = Not at all Worrying too much about different things: 0 = Not at all Trouble relaxin = Not at all Being so restless that it is hard to sit still: 0 = Not at all Becoming easily annoyed or irritable: 0 = Not at all Feeling afraid as if something awful might happen: 0 = Not at all Total CHRISTIAN-7 score (0-4 normal; 5-9 mild; 10-14 moderate; 15-21 severe): 0 Source: Developed by Drs. Neo Fountain, Rosmery Mosqueda, Jon Calderon and colleagues, with an educational glendy from [employer]. CHRISTIAN-7 Assessment Billing CHRISTIAN-7 Assessment Tool: CHRISTIAN-7 Assessment 21980 Review of Systems Const All systems reviewed & are unremarkable except as noted in HPI and below Eyes Reports no additional complaints, Denies change in vision and Denies other visual disturbances Card Denies chest pain at rest, Denies chest pain with activity, Denies edema, Denies irregular heart rhythm, Denies claudication, Denies dyspnea, Denies dyspnea on exertion, Denies orthopnea, Denies paroxysmal nocturnal dyspnea and Denies slow heart rate Resp Denies cough, Denies dyspnea and Denies dyspnea on exertion GI Denies abdominal pain, Denies change in bowel habits, Denies excessive flatus, Denies nausea and Denies vomiting Denies urinary incontinence, Denies urinary hesitancy and Denies urinary urgency Musc Denies abnormal gait, Denies atrophy, Denies deformity and Denies limited range of motion Skin/Breast Denies bleeding lesions, Denies changing lesions and Denies rash Neuro Denies abnormal gait, Denies behavioral changes and Denies lack of coordination Psych Denies behavioral changes Endo Denies cold intolerance Rajendra/Lymph Denies easy bleeding and Denies easy bruising Aller/Immun Denies urticaria Physical exam (Primary Care) Vital Signs: Last Vital Signs BP 138/78 06/10/23 17:04 BMI result Body Mass Index 35.4 Tobacco/Smoking Status: Tobacco use Status Tobacco use date assessed 06/10/23 06/10/23 17:21 Patient Tobacco Use Status Former Tobacco user 06/10/23 17:05 Tobacco use type Cigarette 06/10/23 17:05 e-Cigarette/Vaping Use Never Used 06/10/23 17:05 PHQ-9: PHQ-9 Score PHQ-9: Total score 3 06/10/23 17:23 Depression Screening Interpretation: Negative Thrive Assessment: Date of Thrive Assessment Date Thrive assessed 06/10/23 06/10/23 17:21 Currently or been in a relationship where the following occur: no concerns reported Eyes General: appearance normal, both eyes and all related structures Eyelids: Yes eyelids normal Conjunctivae: conjunctivae normal Neck Neck: Yes normal visual inspection and Yes supple Resp Effort & Inspection: normal respiratory effort Auscultation: clear to auscultation bilaterally Cardio Jugular venous distension: no JVD Rate: regular rate Rhythm: regular rhythm Heart sounds: S1 normal heart sound present and S2 normal heart sound present Extrem General: Yes full ROM Office Procedures Flu Questionnaire Does the patient have a severe egg allergy?: No Results AMB Hemoglobin A1c AMB Hemoglobin A1c 6.4 % Last Edit by CL Meyers on 06/10/23 17:2 4 Immunizations flu vacc [id number] 6mos up(PF) 60 mcg(15 mcgx4)/0.5 mL IM syringe Performing Provider: Lorena Zavaleta MD [facility] Documented (not given) by: CL Meyers on 06/10/23 17:25 Reason Not Given: Received Previously Results Reviewed Results Reviewed: Laboratory Last Values Hgb A1c (Clinic) 6.4 % (4.0-6.0) H 06/10/23 17:22 Assessment and Plan Assessment & Plan (1) Diabetes mellitus: Code(s): E11.9 - Type 2 diabetes mellitus without complications Plan: Continue Tradjenta. Start Ozempic. A1c goal is equal or less than 7%. (2) Hypothyroidism: Code(s): E03.9 - Hypothyroidism, unspecified Qualifiers: Hypothyroidism type: unspecified Qualified Code(s): E03.9 - Hypothyroidism, unspecified Plan: Continue levothyroxine. Monitor TSH. (3) Essential hypertension: Code(s): I10 - Essential (primary) hypertension Plan: Continue amlodipine. Blood pressure goal is equal or less than 130/80. (4) Hyperlipidemia LDL goal <70: Code(s): E78.5 - Hyperlipidemia, unspecified Plan: Continue statins. LDL goal is less than 70. Orders: Orders Microalbumin, Random (w Creat) 4 Months E11.9 - Type 2 diabetes mellitus without complications Comprehensive [place]. Panel Fast 4 Months E11.65 - Type 2 diabetes mellitus with hyperglycemia AMB Hemoglobin A1c 06/10/23 E11.65 - Type 2 diabetes mellitus with hyperglycemia Influenza [id number] Immunization 06/10/23 Z23 - Encounter for immunization Lipid Panel 4 Months E78.5 - Hyperlipidemia, unspecified Thyroid Stimulating Hormone 4 Months E03.9 - Hypothyroidism, unspecified Medications: New semaglutide (Ozempic) for 4 weeks 0.25 mg (0.368 mL) subcut QWEEK 28 days 1.472 mL 0RF E11.65 - Type 2 diabetes mellitus with hyperglycemia Coding Level of Care Code Est Pt Level 4 (49120) Diagnoses Type 2 diabetes mellitus with hyperglycemia, without long-term current use of insulin E11.9 Hypothyroidism, unspecified type E03.9 Hypothyroidism type: unspecified Essential hypertension I10 Hyperlipidemia LDL goal <70 E78.5 Additional Codes CHRISTIAN-7 Assessment Billing - CHRISTIAN-7 Assessment Tool: CHRISTIAN-7 Assessment 88627 ([id number]) Time Spent (min) 23
[2023-06-10 17:04] VITALS: BP 138/78; BMI 35.4
== END 2023-06-10 17:39 | disposition home or self-care (01) ==
LOC: HO.HMGH 16:57
PROVIDERS: PCP Internal Medicine; Visit Provider Internal Medicine
DX: E11.65 Type 2 diabetes mellitus with hyperglycemia (principal)
CPT/HCPCS: 83036; 99214

== ENCOUNTER 2023-12-15 17:03 | Outpatient (AMB) | payer OTHER, SELFPAY ==
--- OUTSIDE RECORDS SUMMARY | 2023-12-15 17:05 | XMS_ITS | Continuity of Care Document ---
Author Organization [facility] Address [address] [place] [phone] Care Team Providers Care Deli Associate Name Role Phone Gallito Zavaleta MD, [facility] Primary Care Physician [phone] Encounter [facility] Date(s): 08/28/22 - 09/27/22 [facility] [address], [place] [id number] Attending Physician: Admtr, Ar8 Admitting Physician: Admtr, Ar8 Referring Physician: Admtr, Ar8 Allergies, Adverse Reactions, Alerts Substance Reaction Severity Status Bactrim Rash Active Percocet 7.5/325 Vomiting Active metFORMIN Diarrhea Active Medications aspirin 81 mg oral tablet, chewable 81 mg, 1, tablet, By Mouth, Daily, # 30 tablet, Refills 0, Tot. Refills 0, Maintenance, 07/02/16 8:47:34, Route to Pharmacy Electronically, [id number], [facility] Start Date: 07/02/16 Status: Ordered atorvastatin 80 mg oral tablet 1 tablet = 80 mg, By Mouth, Daily at bedtime, # 30 tablet, 1 Refills, Maintenance, 10/20/20 13:14:00 EDT, Tablet, [facility], Partial fill upon patient request if the prescription isfor a schedule II opioid drug., 127.9, kg, 10/18/20 10:... Start Date: 10/20/20 Status: Ordered Freestyle Lancets See Instructions, # 200 each, Refills 5, Tot. Refills 5, Maintenance, use as directed to check BS twice daily for Type 2 Diabetes Mellitus, 04/18/21 10:44:00 EST, Supply, 127.9, kg, 10/18/20 10:02:00EDT, Dry Weight Start Date: 04/18/21 Stop Date: 10/15/21 Status: Ordered Freestyle Lite Monitor See Instructions, # 1 each, Refills 0, Tot. Refills 0, Maintenance, use as directed to check BS twice daily for Type 2 Diabetes Mellitus, 04/18/21 10:44:00 EST, Supply, 127.9, kg, 10/18/20 10:02:00 EDT, Dry Weight Start Date: 04/18/21 Stop Date: 05/18/21 Status: Ordered Freestyle Lite Test Strips See Instructions, # 200 each, Refills 1, Tot. Refills 1, Maintenance, use as directed to check BS twice daily for Type 2 Diabetes Mellitus, 11/19/20 10:44:00 EDT, Supply, 127.9, kg, 10/18/20 10:02:00EDT, Dry Weight Start Date: 11/19/20 Stop Date: 01/18/21 Status: Ordered Imdur 30 mg oral tablet, extended release 90 mg, By Mouth, Daily in AM, Maintenance, 10/18/20 10:47:00 EDT Start Date: 10/18/20 Status: Ordered levothyroxine 0.088 mg oral tablet 1 tablet = 88 mcg, By Mouth, Daily, 0 Refills, Maintenance, 05/10/15 8:50:16 Start Date: 05/10/15 Status: Ordered meloxicam 15 mg oral tablet 1 tablet = 15 mg, By Mouth, Daily, 0 Refills, Maintenance, 09/07/22 8:44:00 EDT, Partial fill upon patient request if the prescription is for a schedule II opioid drug. Start Date: 09/07/22 Status: Ordered metoprolol 50 mg oral tablet 50 mg, 1, tablet, By Mouth, 2 times a day, # 60 tablet, Refills 1, Tot. Refills 1, Maintenance, 10/20/20 13:14:00 EDT, Route to Pharmacy Electronically, [facility], Partial fill uponpatient request if the prescription is for a schedule I... Start Date: 10/20/20 Status: Ordered Misc Rx Refills 0, Maintenance, THC/Melantonin at bedtime 1 gummie, 09/07/22 8:45:00 EDT, Supply Start Date: 09/07/22 Status: Ordered Norvasc 10 mg oral tablet 10 mg, 1, tablet, By Mouth, Daily, # 90 tablet, Refills 0, Tot. Refills 0, Maintenance, 05/04/16 13:49:09, Route to Pharmacy Electronically, [id number], [facility] Start Date: 05/04/16 Stop Date: 08/02/16 Status: Ordered Tradjenta 5 mg oral tablet 1 tablet = 5 mg, By Mouth, Daily, # 30 tablet, 0 Refills, Maintenance, 09/07/22 8:44:00 EDT, Tablet, Partial fill upon patient request if the prescription is for a schedule II opioid drug. Start Date: 09/07/22 Status: Ordered Tylenol PM 2, By Mouth, Daily at bedtime, 0 Refills, Maintenance, 09/07/22 8:45:00 EDT, Partial fill upon patient request if the prescription is for a schedule II opioid drug. Start Date: 09/07/22 Status: Ordered Problem List Condition Confirmation Course Effective Dates Status H ealth Status Informant NSTEMI (non-ST elevated myocardial infarction) with normal Cath 2004 Confirmed Active Graves disease S/P radioactive iodine 2012 Confirmed Active HLD (hyperlipidemia) Confirmed Active HTN (hypertension) Confirmed Active Hypothyroidism Confirmed Active Obese class I Confirmed Active Obesity Confirmed Active OA (osteoarthritis) of knee Confirmed Active Social History Social History Type Response Smoking Status Never (less than 100 in lifetime) entered on: 08/28/22 Sex Patient Care team information Care Team Personnel Name: Lurdes Mae RN Position: S RN Member Role: Primary Care Nurse Name: Gallito Zavaleta MD , Lorena Odonnell Position: Reference Physician Member Role: PCP Address: Address: [address] [place] [phone]- Care Team Related Persons Name: JIA SMITH Address: [place], [place] Name: DEBRA HOYT Address: home [address] [place] [id number] Name: BEENA HOYT Address: home [address] [place] [id number]
--- OUTSIDE RECORDS SUMMARY | 2023-12-15 17:05 | XMS_ITS | Continuity of Care Document ---
Author Organization [facility] ter Address [address] [place] [id number]- Care Team Providers Care Keeler Polygraph Operator Name Role Phone Gallito Zavaleta MD, Sheryl Odonnell Primary Care Physician [phone] [place] [facility] [place] 10/20/[address] [address] Discharge Disposition: A-D/C Home Attending Physician: Pedro Beltre MD Admitting Physician: Rick CABELLO, Christel Enriquez Referring Physician: Not on Staff, Referring MD Allergies, Adverse Reactions, Alerts Substance Reaction Severity Status Bactrim Active Percocet 7.5/325 Active Medications aspirin 81 mg oral tablet, chewable 81 mg, 1, tablet, By Mouth, Daily, # 30 tablet, Refills 0, Tot. Refills 0, Maintenance, 07/02/16 8:47:34, Route to Pharmacy Electronically, [id number], [facility] Start Date: [...] 10/20/20 Status: Ordered Freestyle Lancets See Instructions, for 30 days, # 200 each, Refills 5, Tot. Refills 5, Hard Stop 04/18/21 10:44:00 EST, use as directed to check BS twice daily for Type 2 Diabetes Mellitus, 10/20/20 10:44:00 EDT, Supply, 127.9, kg, 10/18/20 10:02:00 EDT, Dry Weight Start Date: 10/20/20 Stop Date: 04/18/21 Status: Ordered Freestyle Lancets See Instructions, # 200 each, Refills 5, Tot. Refills 5, Maintenance, use as directed to check BS twice daily for Type 2 Diabetes Mellitus, 04/18/21 10:44:00 EST, Supply, 127.9, kg, 10/18/20 10:02:00EDT, Dry Weight Start Date: 04/18/21 Stop Date: 10/15/21 Status: Ordered Freestyle Lite Monitor See Instructions, for 30 days, # 1 each, Refills 5, Tot. Refills 5, Hard Stop 04/18/21 10:44:00 EST, use as directed to check BS twice daily for Type 2 Diabetes Mellitus, 10/20/20 10:44:00 EDT, Supply, 127.9, kg, 10/18/20 10:02:00 EDT, Dry Weight Start Date: 10/20/20 Stop Date: 04/18/21 Status: Ordered Freestyle Lite Monitor See Instructions, # 1 each, Refills 0, Tot. Refills 0, Maintenance, use as directed to check BS twice daily for Type 2 Diabetes Mellitus, 04/18/21 10:44:00 EST, Supply, 127.9, kg, 10/18/20 10:02:00 EDT, Dry Weight Start Date: 04/18/21 Stop Date: 05/18/21 Status: Ordered Freestyle Lite Test Strips See Instructions, for 30 days, # 200 each, Tot. Refills 5, Hard Stop 11/19/20 10:44:00 EDT, use as directed to check BS twice daily for Type 2 Diabetes Mellitus, 10/20/20 10:44:00 EDT, Supply, 127.9,kg, 10/18/20 10:02:00 EDT, Dry Weight Start Date: 10/20/20 Stop Date: 11/19/20 Status: Ordered Freestyle Lite Test Strips See [...] 05/10/15 8:50:16 Start Date: 05/10/15 Status: Ordered metFORMIN 1000 mg oral tablet See Instructions, 1 tablet By Mouth daily for 7 days followed by 1 tab 2 times a day, # 60 tablet, 1 Refills, Maintenance, 10/20/20 13:14:00 EDT, Tablet, [facility], Partial fill upon patient request if the prescription is for a schedule... Start Date: 10/20/20 Status: Ordered metoprolol 50 mg oral tablet 50 mg, 1, tablet, By Mouth, 2 times a day, # 60 tablet, Refills 1, Tot. Refills 1, Maintenance, 10/20/20 13:14:00 EDT, Route to Pharmacy Electronically, [facility], Partial fill uponpatient request if the prescription is for a schedule I... Start Date: 10/20/20 Status: Ordered Norvasc 10 mg oral tablet 10 mg, 1, tablet, By Mouth, Daily, # 90 tablet, Refills 0, Tot. Refills 0, Maintenance, 05/04/16 13:49:09, Route to Pharmacy Electronically, [id number], [facility] Start Date: 05/04/16 Stop Date: 08/02/16 Status: Ordered ticagrelor 90 mg oral tablet 1 tablet = 90 mg, By Mouth, 2 times a day, # 60 tablet, 1 Refills, Maintenance, 10/20/20 13:14:00 EDT, Tablet, [facility], Partial fill upon patient request if the prescription is for a schedule II opioid drug., 127.9, kg, 10/18/20 10:02:... Start Date: 10/20/20 Status: Ordered Problem List Condition Effective Dates Status Health Status Inform ant NSTEMI (non-ST elevated myoc ardial infarction) with normal Cath 2004(Confirmed) Active Graves disease S/P radioacti ve iodine 2012(Confirmed) Active HLD (hyperlipidemia)(Confirmed) Active HTN (hypertension)(Confirmed) Active Hypothyroidism(Confirmed) Active Obesity(Confirmed) Active OA (osteoarthritis) of knee(Confirmed) Active Vital Signs Most recent to oldest [Reference Range]: 1 2 3 Weight 125.6 kg (10/20/20 6:43 AM) 125.6 kg (10/20/20 3:00 AM) 126.6 kg (10/19/20 5:07 AM) Oxygen Saturation [94-100 %] 97 % (10/20/20 9:48 AM) 96 % (10/20/20 3:00 AM) 96 % (10/19/20 7:50 PM) Pulse Rate [55-90 bpm] 84 bpm (10/20/20 9:48 AM) 78 bpm (10/20/20 3:00 AM) 75 bpm (10/19/20 7:50 PM) Blood Pressure [90-138/55-84 mm Hg] 142/68mm Hg *H* (10/20/20 9:48 AM) 143/64mm Hg *H* (10/20/20 3:00 AM) 134/61mm Hg (10/19/20 7:50 PM) Respiratory Rate [16-30 br/min] 18 br/min (10/20/20 9:48 AM) 16 br/min (10/20/20 3:00 AM) 18 br/min (10/19/20 7:50 PM) Temperature [96.8-100.4 DegF] 97.0 DegF (10/20/20 9:48 AM) 97.4 DegF (10/20/20 3:00 AM) 97.1 DegF (10/19/20 7:50 PM) Mode of Delivery (Oxygen) Room air (10/20/20 9:48 AM) Room air (10/20/20 3:00 AM) Room air (10/19/20 7:50 PM) Blood pressure sites Arm, right (10/20/20 9:48 AM) Arm, left (10/20/20 3:00 AM) Arm, left (10/19/20 7:50 PM) Temperature Route Temporal (10/20/20 9:48 AM) Temporal (10/20/20 3:00 AM) Temporal (10/19/20 7:50 PM) Dry Weight 127.9 kg (10/18/20 10:02 AM) Weight Obtained Via Bed scale (10/20/20 6:43 AM) Bed scale (10/19/20 5:07 AM) Social History Social History Type Response Smoking Status Former smoker entered on: 05/10/15 Sex
--- OUTSIDE RECORDS SUMMARY | 2023-12-15 17:05 | XMS_ITS | Continuity of Care Document ---
Author Organization [facility] ter Address [address] [place] [address]- Care Team Providers Care Student Assistance Counselor Name Role Phone Gallito Zavaleta MD, Lorena Odonnell Primary Care Physician [place] [facility] [place] 09/09/22 - 09/09/[address] [address]- Discharge Disposition: A-D/C Home Attending Physician: Alberto Mccain MD Admitting Physician: Alberto Mccain MD Referring Physician: Alberto Mccain MD Allergies, Adverse Reactions, Alerts Substance Reaction Severity Status Bactrim Rash Active Percocet 7.5/325 Vomiting Active metFORMIN Diarrhea Active Medications aspirin 81 mg oral tablet, chewable 81 mg, 1, tablet, By Mouth, Daily, # 30 tablet, Refills 0, Tot. Refills 0, Maintenance, 07/02/16 8:47:34, Route to Pharmacy Electronically, [id number], [facility] Start Date: [...] Maintenance, 05/04/16 13:49:09, Route to Pharmacy Electronically, [id number], [facility] Start Date: [...] Active OA (osteoarthritis) of knee Confirmed Active Vital Signs Most recent to oldest [Reference Range]: 1 2 3 Height 165 cm (09/09/22 6:56 AM) 165 cm (09/07/22 8:58 AM) Weight 89.3 kg (09/09/22 6:56 AM) 90 kg (09/07/22 8:58 AM) Oxygen Saturation [94-100 %] 99 % (09/09/22 9:15 AM) 99 % (09/09/22 9:00 AM) 98 % (09/09/22 8:45 AM) Pulse Rate [55-90 bpm] 55 bpm (09/09/22 6:56 AM) Body Mass Index [18.5-24.99 kg/m2] 32.8 kg/m2 *>HHI* (09/09/22 6:56 AM) 33.06 kg/m2 *>HHI* (09/07/22 8:58 AM) Blood Pressure [90-138/55-84 mm Hg] 149/74mm Hg *H* (09/09/22 9:15 AM) 152/75mm Hg *H* (09/09/22 9:00 AM) 164/77mm Hg *H* (09/09/22 8:45 AM) Respiratory Rate [16-30 br/min] 16 br/min (09/09/22 9:15 AM) 10 br/min *L* (09/09/22 9:00 AM) 15 br/min *L* (09/09/22 8:45 AM) Temperature [96.8-100.4 DegF] 97.3 DegF (09/09/22 8:00 AM) 98.5 DegF (09/09/22 6:56 AM) Liters per Minute 6 L/min (09/09/22 8:00 AM) Mode of Delivery (Oxygen) Room air (09/09/22 9:00 AM) Room air (09/09/22 8:45 AM) Room air (09/09/22 8:30 AM) Blood pressure sites Arm, left (09/09/22 9:00 AM) Arm, left (09/09/22 8:45 AM) Arm, left (09/09/22 8:30 AM) Temperature Route Temporal (09/09/22 8:00 AM) Temporal (09/09/22 6:56 AM) Dry Weight 89.3 kg (09/09/22 6:56 AM) 90 kg (09/07/22 8:58 AM) Weight Obtained Via Standing scale (09/09/22 6:56 AM) Patient/family stated (09/07/22 8:58 AM) Dry Weight Obtained Via Standing scale (09/09/22 6:56 AM) Patient/family stated (09/07/22 8:58 AM) Social History Social History Type Response Smoking Status Never (less than 100 in lifetime) entered on: 08/28/22 Sex Note * Hayley Bonilla RN: PERFORM Event Display: Discharge/Transfer Note Hospital Authored Date: [id number] Nursing Discharge Note Entered On: 09/09/2022 10:03 EDT Performed On: 09/09/2022 10:02 EDT by Hayley Bonilla RN Nursing Discharge Note 2 Discharge Time : 09/09/2022 9:50 EDT Discharge Level of Care at Discharge : Home/Penitentiary/Foster Care Patient Accompanied Off Unit with : Other: friend DC Instructions Provided & Signed by Pt : Yes Patient Understands D/C Instructions : Yes Patient Instructions Discharge Signed : Yes Did Pt have Specialty Bed or Wound Vac : No Hayley Bonilla RN - 09/09/2022 10:02 EDT * Hayley Bonilla RN: PERFORM Event Display: Patient Education/Instruction Authored Date: [id number] Inpatient Adult Discharge Instructions [address] [id number] Name: YEMI SMITH : 1960 Visit: 09/09/2022 05:39:00 Current Date: 09/09/2022 09:10 Account: [id number] Inpatient Adult Discharge Instructions We would like to thank you for allowing us to assist you with your healthcare needs. The following includes patient education materials and information regarding your injury/illness. Our entire staffstrives to provide an excellent experience for our patients and their families. PLEASE ENSURE YOU FOLLOW-UP PER THE INSTRUCTIONS BELOW! ?? YOUR OPINION IS IMPORTANT TO US! Please complete the survey you may receive by mail or email. Your feedback will be used to make improvements to the healthcare experiences of our patients and their families. Surveys are administered by [employer] ?? If further treatment with your primary care physician or another doctor is recommended, it is important for you to keep the appointment. Call your primary care physician or return to the Emergency Department immediately if your condition worsens, fails to improve, or new symptoms develop. If you need to find a doctor, you can call [facility] [employer] for a referral at [phone] or toll free at [phone] or log in to [email or web address].. ?? You can view and manage your care through the patient portal or by using a health care bettina of your choosing. [employer] is a website that allows you to securely view your medical information including your hospital discharge summary, office visit summaries, medications and follow-up visits. You can also request appointments, renew medications, and request access to your medical information using a health care bettina of your choosing, or just ask a question. You can enroll at [email or web address] or register during your next office visit. You have been discharged from [facility], Patient Care Unit: [facility]. If you have any questions regarding these instructions after you leave, please call us and we will be happy to assist you. [facility] Your Care Team Attending Physician Alberto Mccain MD Discharging Providers Alberto Mccain MD Reason for Your Visit RIGHT KNEE LATERAL MENISCAL TEAR CS DS Tests Performed Below is a partial list of the tests performed during your hospitalization. You may have had other tests and procedures not included in this list. Please discuss all test results with your provider. GLUCOSE POC Primary Care Provider Gallito Zavaleta MD , Lorena Odonnell Advance Directive . Discharge Vitals Temperature: 97.3 DegF Height: 165 cm Pulse Rate: 55 bpm Weight: 89.3 kg Respiratory Rate:??10 br/min??Low Body Mass Index:??32.8 kg/m2??Critical Systolic Blood Pressure:??152 mm Hg??High Body surface area: 2.02 Diastolic Blood Pressure: 75 mm Hg ?? Oxygen Saturation: 99 % ?? Studies Pending All tests and labs ordered during this hospital stay have been completed unless listed below. Please discuss all pending results with your provider listed above in these instructions. ?? No incomplete studies found What to do next Instructions From Your Doctor Discharge Orders Instructions from your Care Team My walk??Weight Bearing as tolerated. ?? Begin ankle pumps immediately. ?? Apply ice, on 20 minutes and off 40 minutes, while awake for 48 hours or as needed. ?no driving until off narcotics. ?? Start taking aspirin 325 mg, EC Tab, daily for 14 days. ?? Elevate leg on pillow while at rest. You Need to Schedule the Following Appointments Follow Up with??Alberto Mccain MD When?? Where: [address] [place] [address] [address] [facility] [place] [address]- Discharge Medications YEMI SMITH :1960 Visit Date:09/09/2022 Medications: Please continue your medications until treatment is completed or stopped by your provider. Medications not listed below should be discontinued. Discuss any questions related to medications with your provider. What How Much When Instructions Next Dose Unchanged Acetaminophen- Diphenhydramine (Tylenol PM) 2 Oral Daily at Bedtime Unchanged Amlodipine (Norvasc 10 mg oral tablet) 1 tab(s) Oral Daily Duration: 90 Days Unchanged Aspirin (aspirin 81 mg oral tablet, chewable) 1 tab(s) Oral Daily Unchanged Atorvastatin (atorvastatin 80 mg oral tablet) 1 tab(s) Oral Daily at Bedtime Unchanged Durable Medical Equipment (Freestyle Lancets) See instructions Duration: 30 Days use as directed to check BS twice daily for Type 2 Diabetes Mellitus ?? Unchanged Durable Medical Equipment (Freestyle Lite Monitor) See instructions Duration: 30 Days use as directed to check BS twice daily for Type 2 Diabetes Mellitus ?? Unchanged Durable Medical Equipment (Freestyle Lite Test Strips) See instructions Duration: 30 Days use as directed to check BS twice daily for Type 2 Diabetes Mellitus ?? Unchanged Isosorbide Mononitrate (Imdur 30 mg oral tablet, extended release) 90 Milligram Oral Daily in the morning Unchanged Levothyroxine (levothyroxine 0.088 mg oral tablet) 1 tab(s) Oral Daily Unchanged linagliptin (Tradjenta 5 mg oral tablet) 1 tab(s) Oral Daily Unchanged Meloxicam (meloxicam 15 mg oral tablet) 1 tab(s) Oral Daily Unchanged Metoprolol (metoprolol 50 mg oral tablet) 1 tab(s) Oral Twice a day Unchanged Miscellaneous Rx (Misc Rx) THC/ Melantonin at bedtime 1 gummie ?? Test Results Below is a partial list of the most recent Laboratory test results done prior to this discharge. You may have had other tests and procedures not included in this list. Please discuss all test resultswith your provider. GLUCOSE POC (09/09/2022) ???Glucose, POC - 129 mg/dL Allergies (NKA means No Known Allergies) Bactrim??(Rash) Percocet 7.5/325??(Vomiting) metFORMIN??(Diarrhea) Problems Active Problems??(8) Graves disease S/P radioactive iodine 2012?? HLD (hyperlipidemia)?? HTN (hypertension)?? Hypothyroidism?? NSTEMI (non-ST elevated myocardial infarction) with normal Cath 2005?? OA (osteoarthritis) of knee?? Obese class I?? Obesity?? Education Materials Below is the list of Educational Leaflet Providered with your Discharge Instructions. Knee Arthroscopy?? Surgery Medical Daystay Surgical Overnight Discharge Instructions?? Valuables and Belongings I fully understand and agree that [facility] accepts no responsibility for all my personal property including clothing, toilet articles, radios, jewelry, dentures, hearing aids, rings, money, or any other property that is in my possession or is brought to me after admission. I understand certain valuables may be placed in a hospital safe for a short period of time. I understand that the hospital is not liable for loss or damage due to accident, fire, or other natural occurrence while said property is in the safe. I accept full responsibility for any personal property that I keep with me, and will not hold the hospital responsible in case of loss or disappearance. I acknowledge that i have been encouraged to send valuables and belongings home. ?? Review of Valuable and Belonging List: With patient Date for Pt to Sign Valuables/Belongings: 09/09/22 06:56:00 ?? Valuables & Belongings ?? Clothes Electronic devices Jewelry Monetary Items Personal devices Miscellaneous Medications (Valuables) Valuables at Bedside Jacket, Pants, Shirt, Shoes, Undergarments Cell phone ? Cane, Glasses ? Valuables Sent Home ? Valuables Sent to Security ? Other Discharge Information ? Pulmonary Rehab Status?? Pulmonary Rehab Discharge Status?? Respiratory Rate:??10 br/min??Low ? Common Emergency Awareness Tips IS IT A STROKE? Act FAST and Check for these signs: FACE Does the face look uneven? ARM Does one arm drift down? SPEECH Does their speech sound strange? TIME Call at any sign of stroke ?? Heart Attack Signs Chest discomfort: Most heart attacks involve discomfort in the center of the chest and lasts more than a few minutes, or goes away and comes back. It can feel like uncomfortable pressure, squeezing, fullness or pain. Discomfort in upper body: Symptoms can include pain or discomfort in one or both arms, back, neck, jaw or stomach. Shortness of breath: With or without discomfort. Other signs: Breaking out in a cold sweat, nausea, or lightheaded. Remember, MINUTES DO MATTER. If you experience any of these heart attack warning signs, call to get immediate medical attention! ?? Smoking can increase your chances of developing chronic health problems and can cause harmful effects to other family members in your house. If you smoke, you are strongly encouraged to quit. Please call [facility] [employer] at [phone] or [phone] ([phone]) or log in to [email or web address] for referrals to smoking cessation programs. ?? 204 Suicide & Crisis Lifeline is available 14/12 if you or someone you know needs to find a reason to keep living. By calling 134 you'll be connected to a skilled, trained counselor at a crisis center in your area. INPATIENT DISCHARGE INSTRUCTIONS SIGNATURE DIAZ YEMI SMITH Location:[facility] Registration Date and Time:09/09/2022 05:39 EDT Primary Care Physician: Gallito Zavaleta MD , [place], I YEMI SMITH, have received the above patient education materials/instructions and have verbalized understanding. If ambulance or transport services are being used I further acknowledge being givena choice of service. ?? If you need to contact me, please call me at this number: . Patient/Network Architect Name: Patient/Network Architect Signature: Relationship to Patient: Witness Name/Signature: Date: * Hayley Bonilla RN: PERFORM Event Display: Patient Education Leaflets Authored Date: [id number] Knee Arthroscopy ?? [address]855 Knee Arthroscopy Knee problems can often be diagnosed and treated with a technique called arthroscopy. This type of surgery is done using an instrument called an arthroscope (scope). Only a few small incisions are needed for this surgery. The procedure can be used to diagnose a knee problem. In many cases, treatment can also be done using arthroscopy. The arthroscope The scope lets the healthcare provider look directly into the knee joint. It is about the size of apencil and has a pathway for fluids. It also contains coated glass fibers that beam an intense, cool light into the knee joint. A camera is attached to the scope as well. It provides clear images of most areas in your knee joint. The healthcare provider views these images on a monitor. ?? Preparing for the procedure ??? Have lab or other testing done??as advised. ??? Tell your healthcare provider about any medicines or supplements you take. ??? Don't eat or drink anything for 10 hours before the procedure, or asadvised. ??? Once you arrive for surgery, you??will be given an IV line in your arm or hand. This provides fluids and medicines. ??? To keep you free of pain during the surgery, you???ll receive medicine called anesthesia. You may have: o General anesthesia. This puts you into a deep sleep during the surgery. o Regional anesthesia. This numbs the body from the waist down. o Local anesthesia. Thisnumbs just the knee. Along with regional or local anesthesia, you may receive sedation. This medicine makes you relaxed and sleepy during the surgery. ?? The procedure ??? A few small incisions (portals) are made in your knee. ??? The scope is inserted through a portal. ??? Sterile fluid is put into the knee joint. This makes it easier to see and workinside your joint. ??? Using the scope, the healthcare provider confirms the type and degree of knee damage. If possible, the problem is treated at this time. This is done using surgical tools put through the other incisions. ??? When the surgery is done, all tools are taken out. The incisions are closed with sutures, sarthak, surgical glue, or strips of surgical tape. ?? Risks and possible complications of arthroscopy All surgeries have risks. The risks of arthroscopy include: ??? Bleeding ??? Infection ??? Blood clots ??? Swelling and stiffness of the knee ??? Injury to normal tissue ??? Continuing knee problems ?? Last Reviewed Date: 2021 ?? [employer]. All rights reserved. This information is not intended as a substitute for professional medical care. Always follow your healthcare professional's instructions. ?? * Hayley Bonilla RN: PERFORM Event Display: Patient Education Leaflets Authored Date: [id number] Surgery Medical Daystay Surgical Overnight Discharge Instructions ?? 295 Medical Daystay/Surgical Overnight Discharge Instructions ? Since your coordination and judgment may be altered by medication and/or anesthesia, a responsible adult must drive you home from the hospital. ? If you have received medication for pain or sedation while under our care, you should not drive, operate machinery, drink alcohol, or sign any legal documents for 24 hours.?? You should have someone with you at home tonight. ? Remain at home the day of discharge.?? You may be up and about unless otherwise instructed by your physician. ? You may resume your daily prescription medication schedule.?? Any depressant medication should be avoided for 24 hours unless otherwise instructed by your surgeon or anesthesiologist. ? Call your physician for a follow-up appointment.? If you experience unusual or severe pain not relied by your pain medication, excessive bleedingor drainage, persistent nausea and vomiting, excessive swelling or redness, foul odor from incisionsite or fever over 100.6F, you need to call your physician. ? A follow-up phone call by a nurse will be made the day after your procedure.?? If you have stayed with us over night, you will not be receiving a follow-up phone call. ? Nausea and vomiting are a common side effect of prescription pain medication.?? We recommend that pills are not taken on an empty stomach.?? While taking any prescription pain medication you should not drive or drink alcohol. ? Patient Care team information Care Team Personnel Name: Lurdes Mae RN Position: S RN Member Role: Primary Care Nurse Name: Gallito Zavaleta MD , Lorena Odonnell Position: Reference Physician Member Role: PCP Address: Address: [address] [place] [address]- Care Team Related Persons Name: YESENIAJIA PALACIOS Address: [place], [place] Name: DEBRA HOYT Address: home [address] [place] [id number] Name: BEENA HOYT Address: home [address] [place] [address]
[2023-12-15 17:18] VITALS: BP 146/80
--- NOTE | 2023-12-15 17:18 | A.OFFPC_ITS ---
Vital Signs 12/15/23 17:18 Height 5 ft 5 in BMI Reason not done Patient refused/unable BP 146/80 H Blood Pressure Location Lt brachial Position Sitting Intake Visit Reasons: back pain Plant Director Required: No Accompanied by: Self / Same As Patient Allergies oxycodone [From PERCOCET] Allergy (Intermediate, Verified 12/15/23 17:32) N/V Sulfa (Sulfonamide Antibiotics) [SULFA (SULFONAMIDE ANTIBIOTICS)] Allergy (Intermediate, Verified 12/15/23 17:32) UNK, rash metformin Adverse Reaction (Severe, Verified 12/15/23 17:32) diarrhea Medication List - Last Reconciled 12/15/23 by Lorena Zavaleta MD amlodipine 10 mg PO DAILY aspirin (Adult Low Dose Aspirin) 81 mg PO DAILY atorvastatin 80 mg PO DAILY baclofen 10 mg PO TID 30 days diphenhydramine-acetaminophen 25-500 mg (Tylenol PM Extra Strength) 2 tabs PO BEDTIME isosorbide mononitrate ER 90 mg PO DAILY levothyroxine 88 mcg PO DAILY linagliptin (Tradjenta) 5 mg PO DAILY lorazepam (Ativan) 0.5 mg PO BID PRN 2 days meloxicam 15 mg PO DAILY 90 days metoprolol tartrate 50 mg PO BID semaglutide (Ozempic) 2 mg (0.75 mL) subcut QWEEK 4 weeks Tobacco use date assessed: 06/10/23 Dental Screening Dental Screen Date: 06/10/23 HPI HPI Comments History of Present Illness Details This is a 63-year-old female with diabetes mellitus type 2, hypertension, hyperlipidemia and hypothyroidism that comes today complaining of a low back pain that has been present for years but has aggravated since March of last year. Before March she use to try prednisone for few days that mildly relieved the pain. She tried physical therapy at [facility] in [facility] from 03/31/2023 to 04/16/2023 completing 5 sessions which actually worsened the pain and had to be terminated due to this matter. She has been on meloxicam 15 mg daily since July of this year and also try baclofen 10 mg 3 times a day since October of this year with no positive effect on the pain. This has been a directed treatment within the last 3 months. The pain is located in the left side of the back and is more prominent in the right side of the leg although she does feel some pain in the left leg. She denies any numbness but does have tingling. No fever, bowel or bladder incontinence. Use a cane for gait stability. Pain is aggravated by activity. Pain is 10/10 in intensity in which intensity has not been reduced by any pain medication. She will extremely benefit from an MRI of the lumbar spine which was not approved by insurance. This has decrease her quality of life. MRI of lumbar spine will rule out a lumbar degenerative disc disease or any other lesion that can be causing this. A1c is within goal. Blood pressure borderline normal to elevated. Last TSH and LDL were within goal. 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 STEMI (ST elevation myocardial infarction) Surgical History Hx of meniscectomy of right knee H/O cardiac catheterization Family History Mother Hypertension Father Heart disease Sister Ovarian cancer Maternal Grandmother Diabetes Other Mental health disorder Substance use disorder Social History Housing: Condominium Alcohol intake: current Alcohol intake frequency: holidays/special occasions only Patient Tobacco Use Status: Former Tobacco user Tobacco use type: Cigarette e-Cigarette/Vaping Use: Never Used Second Hand Smoke Exposure: No Substance Use Type: Marijuana service: No Current occupational status: employed 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 Neo Fountain, Rosmery Mosqueda, Jon Calderon and colleagues, with an educational glendy from [employer]. Review of Systems Const All systems reviewed & are unremarkable except as noted in HPI and below Card Denies chest pain at rest, Denies chest pain with activity, Denies edema, Denies irregular heart rhythm, Denies claudication, Denies dyspnea, Denies dyspnea on exertion, Denies orthopnea, Denies paroxysmal nocturnal dyspnea and Denies slow heart rate Resp Denies cough, Denies dyspnea and Denies dyspnea on exertion Musc Reports back pain, Reports radiating pain into limb and Reports tingling Neuro Reports tingling Physical exam (Primary Care) Vital Signs: Last Vital Signs BP 146/80 H 12/15/23 17:18 Tobacco/Smoking Status: Tobacco use Status Tobacco use date assessed 06/10/23 12/15/23 17:21 Patient Tobacco Use Status Former Tobacco user 12/15/23 17:21 Tobacco use type Cigarette 12/15/23 17:21 e-Cigarette/Vaping Use Never Used 12/15/23 17:21 Thrive Assessment: Date of Thrive Assessment Date Thrive assessed 06/10/23 12/15/23 17:21 Const Limitations: ambulation with cane Resp Effort & Inspection: normal respiratory effort Auscultation: clear to auscultation bilaterally Cardio Jugular venous distension: no JVD Rate: regular rate Rhythm: regular rhythm Heart sounds: S1 normal heart sound present and S2 normal heart sound present Back/Spine/Pelvis Thoracic/Lumbar Spine: straight leg raise positive right at 30 degrees Extrem General: Yes full ROM Results AMB Hemoglobin A1c AMB Hemoglobin A1c 5.9 % Last Edit by CL Meyers on 12/15/23 17:4 3 Results Reviewed Results Reviewed: Laboratory Last Values Hgb A1c (Clinic) 5.9 % (4.0-6.0) 12/15/23 17:36 Assessment and Plan Assessment & Plan (1) Intractable neuropathic pain of lumbosacral origin: Code(s): M79.2 - Neuralgia and neuritis, unspecified Plan: X-ray ordered. After x-ray MRI will be done. (2) Hyperlipidemia LDL goal <70: Code(s): E78.5 - Hyperlipidemia, unspecified Plan: Continue statins. LDL goal is less than 70. 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 A1c goal is equal or less than 7%. (4) Hypothyroidism: Code(s): E03.9 - Hypothyroidism, unspecified Qualifiers: Hypothyroidism type: unspecified Qualified Code(s): E03.9 - Hypothyroidism, unspecified Plan: Continue levothyroxine. (5) Essential hypertension: Code(s): I10 - Essential (primary) hypertension Plan: Continue amlodipine. Blood pressure goal is equal or less than 130/80. Orders: Orders AMB Hemoglobin A1c Today E11.9 - Type 2 diabetes mellitus without complications XR lumbar spine 2-3V Today M54.16 - Radiculopathy, lumbar region Coding Level of Care Code Est Pt Level 4 (47539) Complex EM visit Add On G2211 Diagnoses Intractable neuropathic pain of lumbosacral origin M79.2 Hyperlipidemia LDL goal <70 E78.5 Type 2 diabetes mellitus without complication, without long-term current use of insulin E11.9 Diabetes mellitus type: type 2 Diabetes mellitus fci insulin use: without fci use Diabetes mellitus complication status: without complication Hypothyroidism, unspecified type E03.9 Hypothyroidism type: unspecified Essential hypertension I10 Time Spent (min) 25
== END 2023-12-15 17:57 | disposition home or self-care (01) ==
LOC: HO.HMGH 17:03
PROVIDERS: PCP Internal Medicine; Visit Provider Internal Medicine
DX: M79.2 Neuralgia and neuritis, unspecified (principal); E78.5 Hyperlipidemia, unspecified; E11.9 Type 2 diabetes mellitus without complications; E03.9 Hypothyroidism, unspecified; I10 Essential (primary) hypertension
CPT/HCPCS: 83036; 99214

== ENCOUNTER 2023-12-18 07:02 | Outpatient (REF) | payer OTHER, SELFPAY ==
[2023-12-18 08:49] LABS: Creatinine Urine 50.08 mg/dL; Microalbum/Creatinine Ratio Ur 11.9 ug/mg cr (<30)
[2023-12-18 08:54] LABS: Alanine Aminotransferase 32 U/L (0-31); Albumin Level 4.2 g/dL (3.5-5.0); Alkaline Phosphatase 140 U/L (39-117); Anion Gap 15 (12-20); Aspartate Amino Transferase 25 U/L (5-31); Bilirubin Total 0.4 mg/dL (0.0-1.0); Blood Urea Nitrogen 18 mg/dL (9-16); Calcium 9.9 mg/dL (8.4-10.2); Carbon Dioxide 21 mmol/L (22-29); Chloride 107 mmol/L (96-108); Cholesterol 130 mg/dL (<200); Estimated Glomerular Filt Rate > 60; Glucose Fasting 121 mg/dL (60-99); HDL Cholesterol 46 mg/dL (>40); LDL Cholesterol Calculated 60 mg/dL (<100); Potassium 3.9 mmol/L (3.3-5.1); Sodium 139 mmol/L (135-145); Total Protein 7.5 g/dL (6.5-8.0); Triglycerides 121 mg/dL (<150)
== END 2023-12-18 07:03 | disposition home or self-care (01) ==
LOC: HO.LAB 07:02
PROVIDERS: PCP Internal Medicine; Referring Provider Internal Medicine Cardiovascular Disease; Visit Provider Internal Medicine
DX: E78.5 Hyperlipidemia, unspecified (principal); E11.65 Type 2 diabetes mellitus with hyperglycemia; E03.9 Hypothyroidism, unspecified
CPT/HCPCS: 36415; 80053; 80061; 82043; 82570; 84443

== ENCOUNTER → 2024-03-16 17:19 | Outpatient (BNVA) | payer OTHER, SELFPAY | PROVIDERS: PCP Internal Medicine; Visit Provider Internal Medicine | DX: Z00.00 Encounter for general adult medical examination without abnormal findings (principal); E11.9 Type 2 diabetes mellitus without complications; Z79.85 Long-term (current) use of injectable non-insulin antidiabetic drugs | CPT/HCPCS: 83036; 90471 ==

== ENCOUNTER 2024-06-20 15:47 | Emergency (ER) | payer OTHER, SELFPAY ==
[2024-06-20] VITALS (9 sets, daily range): BP systolic 131–164; BP diastolic 63–92; PULSE 50–106; RESP 10–16; TEMP 36.6–36.9; O2SAT 94–98; BMI 35.6
--- NOTE | ~2024-06-20 | XR_ITS ---
CLINICAL HISTORY: CP 1 view chest x-ray Comparison: CR - XR CHEST 1V - 10/18/20 03:16 EDT Findings: The lungs are clear. Heart size is normal. No acute fracture. IMPRESSION: 1. No acute findings. This document has been electronically signed by: Arias Kaplan MD on 06/20/2024 20:16:10
--- NOTE | 2024-06-20 15:49 | ECG_ITS ---
Test Reason : chest pain Blood Pressure : */* mmHG Vent. Rate : 73 BPM Atrial Rate : 73 BPM P-R Int : 190 ms QRS Dur : 104 ms QT Int : 408 ms P-R-T Axes : 55 54 74 degrees QTcB Int : 449 ms Normal sinus rhythm Possible Left atrial enlargement Nonspecific ST abnormality Abnormal ECG When compared with ECG of 18-Oct-2020 07:06, No significant change was found Referred By: Apolonia Padilla Electronically Signed By: FREDDIE BROOKS
--- NOTE | 2024-06-20 16:24 | PC.NURSE ---
EKG completed in triage by gabriel
[2024-06-20 16:37] LABS: MANUAL DIFF FLAG NO
[2024-06-20 16:40] LABS: Basophils Absolute Auto 0.1 X10*3/uL (0.0-0.2); Basophils Percent Auto 0.5 % (0-2); Eosinophils Absolute Auto 0.2 X10*3/uL (0.0-0.4); Eosinophils Percent Auto 1.4 % (0-4); Hematocrit 42.5 % (37.0-47.0); Hemoglobin 14.5 g/dl (12.0-16.0); Imm Gran Abs Auto 0.03 X10*3/uL (0.00-0.03); Imm Gran Pct Auto 0.2 % (0.0-0.4); Lymphocytes Absolute Auto 2.2 X10*3/uL (1.2-4.9); Lymphocytes Percent Auto 15.4 % (20-40); Mean Corpuscular HGB Conc 34.1 g/dl (31.0-35.0); Mean Corpuscular Hemoglobin 29.8 pg (27.0-33.0); Mean Corpuscular Volume 87.4 fL (80.0-98.0); Mean Platelet Volume 10.8 fL (9.4-12.3); Monocytes Absolute Auto 0.4 X10*3/uL (0.1-1.2); Monocytes Percent Auto 2.9 % (2-11); Neutrophils Absolute Auto 11.2 x10*3/uL (2.0-8.3); Neutrophils Percent Auto 79.6 % (45-73); Platelet Count 286 X10*3/uL (160-400); Red Blood Count 4.86 X10*6/uL (4.20-5.50); Red Cell Distribution Width 13.7 % (11.0-16.0); White Blood Count 14.1 X10*3/uL (4.8-10.8)
--- NOTE | 2024-06-20 16:41 | PC.NURSE ---
324mg ASA PER Una GROSSMAN MD VERBAL ORDER
[2024-06-20] MEDS: Aspirin 81 MG TAB.CHEW 324 MG PO (16:44)
--- NOTE | 2024-06-20 16:48 | ED.CHESTPAIN ---
HPI - Chest Pain General Chief Complaint: Chest Pain Stated Complaint: Chest pain Time Seen by Provider: 06/20/24 16:29 Source: patient Mode of arrival: ambulatory Limitations: no limitations History of Present Illness ED Provider: Dr. Kristina Stauffer HPI narrative: Patient comes to the emergency room complaining of chest pain for 19 hours. According to the patient, last night before she went to bed she started having bilateral chest pain. Patient states that she attributed this to anxiety since the next morning she was scheduled for steroids spinal injections for chronic lumbar pain. Patient states that when she woke up this morning, she was still having chest pain. She went to her appointment, got her injections and when she returned home, noticed that the chest pain seemed to be gradually getting a bit worse. Patient denies shortness of breath. Patient has history of NSTEMI is x3, last 1 in 2020. Patient states that she takes aspirin 81 mg daily but stopped taking it 1 week ago due to her procedure from today. Related Data Home Medications ?Medication ?Instructions ?Recorded ?Confirmed aspirin 81 mg tablet,delayed 81 mg PO DAILY 10/30/20 03/16/24 release (Adult Low Dose Aspirin) diphenhydramine 25 2 tab PO BEDTIME sleep 10/06/21 03/16/24 mg-acetaminophen 500 mg tablet (Tylenol PM Extra Strength) gabapentin 300 mg capsule 300 mg PO TID 03/16/24 03/16/24 Previous Rx's ?Medication ?Instructions ?Recorded lorazepam 0.5 mg tablet (Ativan) 0.5 mg PO BID PRN anxiety 2 days 10/13/23 #4 tabs baclofen 10 mg tablet 10 mg PO TID 30 days #90 tabs 11/01/23 meloxicam 15 mg tablet 15 mg PO DAILY 90 days #90 tabs 01/29/24 levothyroxine 88 mcg tablet 88 mcg PO DAILY #90 tabs 04/03/24 amlodipine 10 mg tablet 10 mg PO DAILY #30 caps 04/19/24 semaglutide 2 mg/dose (8 mg/3 mL) 2 mg (0.75 mL) subcut QWEEK 4 04/23/24 subcutaneous pen injector (Ozempic) weeks #3 mL metoprolol tartrate 50 mg tablet 50 mg PO BID #180 tabs 05/14/24 atorvastatin 80 mg tablet 80 mg PO DAILY #90 tabs 06/08/24 isosorbide mononitrate 30 mg 90 mg (3 x 30 mg) PO DAILY 90 days 06/19/24 tablet,extended release 24 hr #270 tabs Allergies Allergy/AdvReac Type Severity Reaction Status Date / Time oxycodone [From PERCOCET] Allergy Intermediate N/V Verified 06/20/24 16:20 Sulfa (Sulfonamide Allergy Intermediate UNK, rash Verified 06/20/24 16:20 Antibiotics) [SULFA (SULFONAMIDE ANTIBIOTICS)] metformin AdvReac Severe diarrhea Verified 06/20/24 16:20 Review of Systems Review of Systems: Constitutional : No Weight loss, No Fever, No Chills, No Night Sweats, No Fatigue, No Malaise ENT/Mouth : No Hearing loss, No Ear Pain, No Nasal Congestion, No Sinus Pain, No Hoarseness, No sore throat, No Rhinorrhea, No Swallowing Difficulty Eyes: No Eye Pain, No Swelling, No Redness, No Foreign Body, No Discharge, No Vision Changes Cardiovascular : Complaining of chest pain, No SOB, No Dyspnea on Exertion, No Orthopnea, No Edema, No Palpitations Respiratory : No Cough, No Sputum, No Wheezing, No Smoke Exposure, No Dyspnea Gastrointestinal : No Nausea, No Vomiting, No Diarrhea, No Constipation, No abdominal Pain, No Hematochezia, No Melena Genitourinary : no irregular bleeding, No Dysuria, No Urinary Frequency, No Hematuria, No Urinary Incontinence, No Urgency, No Flank Pain, No Urinary Flow Changes, No Hesitancy Musculoskeletal : No joint pain, No Myalgias, No Joint Swelling Skin : No Skin Lesions, No rash Neuro : No Weakness, No Numbness, No Paresthesias, No Loss of Consciousness, No Dizziness, No Headache Psych : No Anxiety/Panic, No Depression, No SI/HI/AH/VH, No Social Issues, Heme/Lymph: No Bruising, No Bleeding,No Lymphadenopathy Endocrine : No Polyuria, No Polydipsia, No Temperature Intolerance [facility] Past Medical History Medical History NSTEMI (non-ST elevated myocardial infarction) Type 2 diabetes mellitus with hyperglycemia Hidradenitis suppurativa Lower back pain Pain, joint, knee, right Right knee pain Suppurative hidradenitis LORENA positive Morbid obesity with BMI of 40.0-44.9, adult Breast lesion Abscess Diabetes mellitus Hypothyroidism Essential hypertension 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 STEMI (ST elevation myocardial infarction) Surgical History Hx of meniscectomy of right knee H/O cardiac catheterization Family History Family History (Updated 03/16/24 @ 17:51 by Lorena Zavaleta MD) Mother Hypertension Father Heart disease Sister Ovarian cancer, Onset Age: 41 Breast cancer Maternal Grandmother Diabetes Other Mental health disorder Substance use disorder Social History Social History (Updated 03/16/24 @ 17:51 by Lorena Zavaleta MD) Housing: Condominium Alcohol intake: current Alcohol intake frequency: holidays/special occasions only Alcohol type: wine Patient Tobacco Use Status: Former Tobacco user Tobacco use type: Cigarette Smoked in Last 30 Days: No e-Cigarette/Vaping Use: Never Used Second Hand Smoke Exposure: No Use of substances other than those prescribed or required for medical reasons: Yes Substance Use Type: Marijuana Substance Use Frequency: Daily Advance Directives: No Advance Directives Information Provided: No Do you have a plan to hurt others: No Plan service: No Current occupational status: employed 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 Oriented X3. Seems uncomfortable Eyes: Pupils equal, round and reactive to light. ENT: Pharynx normal. Neck: Normal inspection. Neck supple. No lymph nodes noted. No crepitus CVS: Normal heart rate and rhythm. Pulses normal. Normal S1 and S2 Respiratory: No respiratory distress. Breath sounds normal. No Wheezing. No rales Abdomen: Soft and nontender. No rigidity. No distention. Skin: Skin warm and dry. Normal skin color. Normal skin turgor. Extremities: No lower extremity edema. No Lacerations. No Rash Neuro: Oriented X 3. No motor deficit. No sensory deficit. Moving all extremities. No slurred speech. CN 2 through 12 grossly intact Psych: calm, cooperative, normal affect Medications Administered Generic Name Dose Route Start Last Admin Trade Name Freq PRN Reason Stop Dose Admin Heparin Sodium/Sodium Chloride 25,000 unit in 250 mls @ 0 mls/hr 06/20/24 17:15 06/20/24 18:28 Heparin Sodium,Porcine/1/2ns IVCONT 14 units/kg/hr .Q0M JERMAINE 13.58 mls/hr Administration Protocol Per Protocol Discontinued Medications Generic Name Dose Route Start Last Admin Trade Name Freq PRN Reason Stop Dose Admin Aspirin 324 mg 06/20/24 16:43 06/20/24 16:44 Aspirin 81 Mg Tab.Chew PO 06/20/24 16:44 324 mg ONCE ONE Administration Heparin Sodium (Porcine) 5,000 unit 06/20/24 17:05 06/20/24 18:27 Heparin Sodium,Porcine 5,000 Unit/Ml Vial IVPUSH 06/20/24 17:06 5,000 unit ONCE ONE Administration Metoprolol Tartrate 5 mg 06/20/24 17:59 06/20/24 18:27 Metoprolol Tartrate 5 Mg/5 Ml Vial IVPUSH 06/20/24 18:00 5 mg ONCE ONE Administration Protocol Morphine Sulfate 2 mg 06/20/24 17:49 06/20/24 18:19 Morphine Sulfate 2 Mg/Ml Cartridge IVPUSH 06/20/24 17:50 2 mg ONCE ONE Administration Protocol Nitroglycerin 1 inch 06/20/24 17:59 06/20/24 18:22 Nitroglycerin 2 % Oint 1 Gm Packet TRANSDERMA 06/20/24 18:00 1 inch ONCE ONE Administration Ondansetron HCl 4 mg 06/20/24 18:24 06/20/24 18:27 Ondansetron Hcl 4 Mg/2 Ml Vial IVPUSH 06/20/24 18:25 4 mg ONCE ONE Administration Medical Decision Making Medical Decision Making MDM Narrative: My interpretation of EKG: There are very subtle ST segment changes in the inferior leads, 1 mm elevation in 2 3 and AVF, new T-wave inversion in V2 compared to previous EKGs. QTC 449 We do not have labs back, I discussed the patient with Dr. Tracey. Given patient's past medical history of 3 NSTEMI he has, and patient currently having chest pain, it would be best to transfer the patient to [facility]. Patient already received full dose aspirin. Usually by now we would have started heparin empirically. However, given patient's procedure from today, we are going to wait for troponins. We were able to get in touch with [facility] in [place]. Given timing of the patient's injection (2pm) and now, it should be safe to start heparin on the patient. Patient was also given nitro paste, full-dose aspirin Also spoke to Dr. Harper from Cardiology at [facility], recommendations, give metoprolol, wait for 2nd troponin, if patient is stable she may stay here at [facility], otherwise, patient will be transferred to [facility] After the above-mentioned treatment, we repeated a troponin level, which increased. The troponin increased from 162.2 to 259. Patient states that the pain has decreased to 5/10. However, patient is still uncomfortable. Chest x-ray does not show any signs of pneumonia. I discussed the patient again with Dr. Harper from [facility], patient being admitted at [facility]. Patient agrees with plan Differential Diagnosis Differential Diagnoses: The differential diagnosis associated with the presentation includes (NSTEMI, ACS, STEMI) Lab Data 06/20/24 16:33 06/20/24 16:33 Labs: Lab Results 06/20/24 06/20/24 06/20/24 Range/Units 16:33 17:35 19:17 WBC 14.1 H (4.8-10.8) X10*3/uL RBC 4.86 (4.20-5.50) X10*6/uL Hgb 14.5 (12.0-16.0) g/dl Hct 42.5 (37.0-47.0) % MCV 87.4 (80.0-98.0) fL MCH 29.8 (27.0-33.0) pg MCHC 34.1 (31.0-35.0) g/dl RDW 13.7 (11.0-16.0) % Plt Count 286 (160-400) X10*3/uL MPV 10.8 (9.4-12.3) fL Immature Gran % (Auto) 0.2 (0.0-0.4) % Neut % (Auto) 79.6 H (45-73) % Lymph % (Auto) 15.4 L (20-40) % Cross % (Auto) 2.9 (2-11) % Eos % (Auto) 1.4 (0-4) % Baso % (Auto) 0.5 (0-2) % Lymph # (Auto) 2.2 (1.2-4.9) X10*3/uL Cross # (Auto) 0.4 (0.1-1.2) X10*3/uL Eos # (Auto) 0.2 (0.0-0.4) X10*3/uL Baso # (Auto) 0.1 (0.0-0.2) X10*3/uL Abs Immat Gran (auto) 0.03 (0.00-0.03) X10*3/uL Absolute Neuts (auto) 11.2 H (2.0-8.3) x10*3/uL Absolute Nucleated RBC 0.000 (0.0-0.012) X10*3/uL Nucleated RBC % (auto) 0.0 (0.0-0.2) /100WBC PT 11.2 (10.9-12.4) SEC INR 1.0 (0.9-1.1) aPTT Heparin Protocol 30.4 L (53-77.9) SEC Sodium 137 (135-145) mmol/L Potassium 4.5 (3.3-5.1) mmol/L Chloride 103 (96-108) mmol/L Carbon Dioxide 20 L (22-29) mmol/L Anion Gap 19 (12-20) BUN 16 (9-16) mg/dL Creatinine 0.77 (0.5-1.4) mg/dL Estim Creat Clear Calc 87.3 Estimated GFR > 60 Random Glucose 178 H (60-115) mg/dL Calcium 10.0 (8.4-10.2) mg/dL Troponin I High Sens 162.2 H* 259.0 H* D (<3.5-17.0) ng/L Discharge Plan Discharge Clinical Impression: Acute non-ST elevation myocardial infarction (NSTEMI) Patient Disposition: Xfer Acute Care Hospital Transfer Details: [facility], Dr. Harper from Cardiology Prescriptions: No Action lorazepam [Ativan] 0.5 mg tablet 0.5 mg PO BID PRN (Reason: anxiety) 2 Days Qty: 4 0RF baclofen 10 mg tablet 10 mg PO TID 30 Days Qty: 90 3RF meloxicam 15 mg tablet 15 mg PO DAILY 90 Days Qty: 90 1RF levothyroxine 88 mcg tablet 88 mcg PO DAILY Qty: 90 0RF amlodipine 10 mg tablet 10 mg PO DAILY Qty: 30 6RF Ozempic 2 mg/dose (8 mg/3 mL) pen injector 2 mg subcut QWEEK 28 Days Qty: 3 6RF metoprolol tartrate 50 mg tablet 50 mg PO BID Qty: 180 1RF atorvastatin 80 mg tablet 80 mg PO DAILY Qty: 90 0RF isosorbide mononitrate 30 mg tablet extended release 24 hr 90 mg PO DAILY 90 Days Qty: 270 3RF aspirin [Adult Low Dose Aspirin] 81 mg tablet,delayed release (DR/EC) 81 mg PO DAILY diphenhydramine-acetaminophen [Tylenol PM Extra Strength] 25-500 mg tablet 2 tab PO BEDTIME gabapentin 300 mg capsule 300 mg PO TID Print Language: Mosotho
[2024-06-20 16:50] LABS: Anion Gap 19 (12-20); Blood Urea Nitrogen 16 mg/dL (9-16); Carbon Dioxide 20 mmol/L (22-29); Chloride 103 mmol/L (96-108); Creatinine Clr Calc Pharmacy 87.3; Estimated Glomerular Filt Rate > 60; Glucose Random 178 mg/dL (60-115); Potassium 4.5 mmol/L (3.3-5.1); Sodium 137 mmol/L (135-145)
[2024-06-20 17:02] LABS: Troponin-I High Sensitivity 162.2 ng/L (<3.5-17.0)
--- NOTE | 2024-06-20 17:39 | MHC.EDTECH ---
PTINR/PTT drawn and sent to lab ,vitals taken ,Patient is hooked up to teletypesetter monitor ,warm blanket and Pillow given .Call parry within Pt reach .
[2024-06-20 17:51] LABS: Prothrombin Time 11.2 SEC (10.9-12.4)
[2024-06-20 17:53] LABS: PTT Heparin Drip 30.4 SEC (53-77.9)
--- NOTE | 2024-06-20 18:03 | PC.NURSE ---
Awaiting pharmacy Heparin gtt verification at this time.
[2024-06-20] MEDS: Morphine Sulfate 2 MG/ML CARTRIDGE IVPUSH (18:19)
[2024-06-20] MEDS: Nitroglycerin 2 % Oint 1 GM Packet 1 INCH TRANSDERMA (18:22)
[2024-06-20] MEDS: Metoprolol Tartrate 5 MG/5 ML VIAL IVPUSH (18:27)
[2024-06-20] MEDS: ondansetron HCL 4 MG/2 ML VIAL IVPUSH (18:27)
[2024-06-20] MEDS: Heparin Sodium,Porcine 5,000 UNIT/ML VIAL 5000 UNIT IVPUSH (18:27)
[2024-06-20] MEDS: Heparin Sodium,Porcine/1/2NS 25,000 UNIT/250 ML IV.SOLN 13.58 UNIT IVCONT (18:28)
--- NOTE | 2024-06-20 22:04 | ECG_ITS ---
Test Reason : CHEST PAIN Blood Pressure : */* mmHG Vent. Rate : 75 BPM Atrial Rate : 75 BPM P-R Int : 164 ms QRS Dur : 96 ms QT Int : 398 ms P-R-T Axes : 57 42 59 degrees QTcB Int : 444 ms Normal sinus rhythm with sinus arrhythmia Possible Left atrial enlargement Inferior infarct , age undetermined Abnormal ECG When compared with ECG of 20-Jun-2024 15:53, No significant change was found Referred By: Mele Lindo Electronically Signed By: FREDDIE BROOKS
[2024-06-20] MEDS: Atorvastatin Calcium 80 MG TABLET PO (23:55)
--- NOTE | 2024-06-20 23:58 | MHC.EDTECH ---
0000 rounding done ,vitals taken ,Patient up ambulated to bathroom ,was re attached to training professional ,Patient was moved in a hospital bed for Comfort ,Patient request 2 denture cup and Saline for her Contacts ,RN Hope aware ,Patient also wanted to keep her own socks on instead on hospital sock .
[2024-06-21] VITALS (9 sets, daily range): BP systolic 130–169; BP diastolic 68–84; PULSE 91–109; RESP 13–21; TEMP 36.6–37.1; O2SAT 94–96
[2024-06-21] MEDS: diphenhydrAMINE HCL 25 MG CAPSULE 50 MG PO
[2024-06-21] MEDS: Gabapentin 300 MG CAPSULE PO
[2024-06-21 00:57] LABS: PTT Heparin Drip > 200.0 SEC (53-77.9)
--- NOTE | 2024-06-21 01:46 | ECG_ITS ---
Test Reason : CHEST PAIN Blood Pressure : */* mmHG Vent. Rate : 82 BPM Atrial Rate : 82 BPM P-R Int : 160 ms QRS Dur : 104 ms QT Int : 376 ms P-R-T Axes : 64 60 70 degrees QTcB Int : 439 ms Normal sinus rhythm Inferior infarct (cited on or before 20-Jun-2024) ACUTE MT / STEMI Abnormal ECG When compared with ECG of 20-Jun-2024 22:27, Serial changes of evolving Inferior infarct Present Referred By: Mele Lindo Electronically Signed By: FREDDIE BROOKS
[2024-06-21] MEDS: Nitroglycerin 0.4 MG TAB.SUBL SUBLINGUAL ×2 (02:00→02:12)
--- NOTE | 2024-06-21 02:06 | MHC.EDTECH ---
Patient c/o chest pain/discomfort ,3rd ekg taken was read by Provider ,BEATA Hope was made aware ,Trop and PTINR draw also RSV/COVID swab collected all sent to lab ,Patient very Tearful ,vitals taken .
--- NOTE | 2024-06-21 02:15 | PC.NURSE ---
[address] SL nitro given urgently at this time BP 163/80 0212 pt reporting pain at 06/02 169/[address] give another dose of SL nitro and morphine 0218 2nd dose of SL nitro given 156/71 104
[2024-06-21] MEDS: Morphine Sulfate 2 MG/ML CARTRIDGE IVPUSH (02:25)
[2024-06-21] MEDS: Docusate Sodium 100 MG CAPSULE 200 MG PO (02:30)
--- NOTE | 2024-06-21 02:34 | ECG_ITS ---
Test Reason : PAIN FREE Blood Pressure : */* mmHG Vent. Rate : 88 BPM Atrial Rate : 88 BPM P-R Int : 158 ms QRS Dur : 102 ms QT Int : 372 ms P-R-T Axes : 61 54 53 degrees QTcB Int : 450 ms Normal sinus rhythm with sinus arrhythmia Right atrial enlargement Possible Inferior infarct (cited on or before 20-Jun-2024) Abnormal ECG When compared with ECG of 21-Jun-2024 01:54, Serial changes of evolving Inferior infarct Present Referred By: Mele Lindo Electronically Signed By: FREDDIE BROOKS
--- NOTE | 2024-06-21 02:36 | PC.NURSE ---
patient reporting all pain resolved at this time
--- NOTE | 2024-06-21 02:42 | MHC.EDTECH ---
4th ekg taken ,and was read by Provider ,Patient is now Pain free and is more comfortable .Plan of Care continue .
[2024-06-21 02:46] LABS: Troponin-I High Sensitivity 32270.9 ng/L (<3.5-17.0)
[2024-06-21 03:07] LABS: Influenza A PCR NEGATIVE (Negative); Influenza B PCR NEGATIVE (Negative); Resp Syncy Virus RNA Qual PCR NEGATIVE (Negative); SARS COV2 PCR INHOUSE NEGATIVE (Negative)
[2024-06-21] MEDS: Nitroglycerin 2 % Oint 1 GM Packet 1 INCH TRANSDERMA (03:09)
--- NOTE | 2024-06-21 03:38 | PC.NURSE ---
report [place] [facility] questions answered and EMS on scene to transport patient
== END 2024-06-21 03:45 | disposition short-term general hospital (02) ==
PROVIDERS: Emergency Medicine; Emergency Provider Emergency Medicine; PCP Internal Medicine
DX: I21.4 Non-ST elevation (NSTEMI) myocardial infarction (principal); G89.29 Other chronic pain; M54.50 Low back pain, unspecified; E11.9 Type 2 diabetes mellitus without complications; I10 Essential (primary) hypertension; E03.9 Hypothyroidism, unspecified; F41.9 Anxiety disorder, unspecified; F12.90 Cannabis use, unspecified, uncomplicated; Z87.891 Personal history of nicotine dependence; Z79.82 Long term (current) use of aspirin; Z79.899 Other long term (current) drug therapy; Z79.02 Long term (current) use of antithrombotics/antiplatelets; Z03.818 Encounter for observation for suspected exposure to other biological agents ruled out
CPT/HCPCS: 0241U; 36415; 71045; 80048; 84484; 85025; 85610; 85730; 93005; 96365; 96366; 96375; 96376; 99285; J1644; J2270; J2405

== ENCOUNTER → 2024-06-20 15:49 | Outpatient (BNV) | payer OTHER, SELFPAY | PROVIDERS: Emergency Provider Emergency Medicine; PCP Internal Medicine; Visit Provider Internal Medicine | DX: R07.9 Chest pain, unspecified (principal) | CPT/HCPCS: 93010 ==

== ENCOUNTER → 2024-06-20 19:49 | Outpatient (BNV) | payer OTHER, SELFPAY | PROVIDERS: Emergency Provider Emergency Medicine; PCP Internal Medicine; Visit Provider Student in an Organized Health Care Education/Training Program | DX: R07.9 Chest pain, unspecified (principal) | CPT/HCPCS: 71045 ==

== ENCOUNTER → 2024-06-21 01:46 | Outpatient (BNV) | payer OTHER, SELFPAY | PROVIDERS: Emergency Provider Emergency Medicine; PCP Internal Medicine; Visit Provider Internal Medicine | DX: I21.3 ST elevation (STEMI) myocardial infarction of unspecified site (principal); I49.9 Cardiac arrhythmia, unspecified; I51.7 Cardiomegaly; R94.31 Abnormal electrocardiogram [ECG] [EKG] | CPT/HCPCS: 93010 ==

== ENCOUNTER 2024-06-25 21:32 | Observation (INO) | payer OTHER, SELFPAY ==
--- NOTE | ~2024-06-25 | XR_ITS ---
CLINICAL HISTORY: chest pain 2 view chest x-ray Comparison: CR - XR CHEST 1V - 06/20/24 19:53 EST Findings: The lungs are clear. Heart size is normal. No acute fracture. IMPRESSION: 1. No acute findings. This document has been electronically signed by: Imtiaz Santana MD on 06/25/2024 23:28:19
--- NOTE | 2024-06-25 21:35 | ECG_ITS ---
Test Reason : CP Blood Pressure : */* mmHG Vent. Rate : 86 BPM Atrial Rate : 86 BPM P-R Int : 152 ms QRS Dur : 94 ms QT Int : 370 ms P-R-T Axes : 67 16 48 degrees QTcB Int : 442 ms Normal sinus rhythm Possible Left atrial enlargement Inferior infarct (cited on or before 20-Jun-2024) Abnormal ECG When compared with ECG of 21-Jun-2024 02:40, No significant change was found Referred By: Generic ED Physician Electronically Signed By: Phi Rea
[2024-06-25 21:41] VITALS: BP 147/68; PULSE 93; RESP 20; TEMP 36.3; O2SAT 98; BMI 33.8
--- OUTSIDE RECORDS SUMMARY | 2024-06-25 22:09 | XMS_ITS | Continuity of Care Document ---
Author Organization [employer] ter Address [address] [place] [address]- Care Team Providers Care Dentistry Teacher Name Role Phone Gallito Zavaleta MD, [place] Primary Care [id number] Date(s): 06/21/24 - 06/22/[address] [address] Discharge Disposition: A-D/C Home Attending Physician: Jim Gutierrez MD Admitting Physician: Lemuel Harper MD Referring Physician: Not on Staff, Referring MD Encounter Type: Disch IP Allergies, Adverse Reactions, Alerts Substance Criticality Severity Reaction Reaction Severity Status Bactrim Rash Active Percocet 7.5/325 Vomiting Act krunal metFORMIN Diarrhea Active Medications aspirin 81 mg oral tablet, chewable 81 mg, 1, tablet, By Mouth, Daily, # 30 tablet, Refills 0, Tot. Refills 0, Maintenance, 07/02/16 8:47:34 AM EST, Route to Pharmacy Electronically, [facility] Start Date: 07/02/16 Status: Ordered Quantity: 30.0 Unit: tablet Repeat number: 1 atorvastatin 80 mg oral tablet 1 tablet = 80 mg, By Mouth, Daily at bedtime, # 30 tablet, 1 Refills, Maintenance, 10/20/20 1:14:00 PM EDT, Tablet, [facility], Partial fill upon patient request if the prescription is for a schedule II opioid drug., 127.9, kg, 10/18/20 10:02:00 EDT, Dry Weight Start Date: 10/20/20 Status: Ordered Quantity: 30.0 Unit: tablet Repeat number: 2 Freestyle Lancets See Instructions, # 200 each, Refills 5, Tot. Refills 5, Maintenance, use as directed to check BS twice daily for Type 2 Diabetes Mellitus, 04/18/21 10:44:00 AM EST, Supply, 127.9, kg, 10/18/20 10:02:00 EDT, Dry Weight Start Date: 04/18/21 Stop Date: 10/15/21 Status: Ordered Quantity: 200.0 Unit: each Repeat number: 6 Freestyle Lite Monitor See Instructions, # 1 each, Refills 0, Tot. Refills 0, Maintenance, use as directed to check BS twice daily for Type 2 Diabetes Mellitus, 04/18/21 10:44:00 AM EST, Supply, 127.9, kg, 10/18/20 10:02:00 EDT, Dry Weight Start Date: 04/18/21 Stop Date: 05/18/21 Status: Ordered Quantity: 1.0 Unit: each Repeat number: 1 Freestyle Lite Test Strips See Instructions, # 200 each, Refills 1, Tot. Refills 1, Maintenance, use as directed to check BS twice daily for Type 2 Diabetes Mellitus, 11/19/20 10:44:00 AM EDT, Supply, 127.9, kg, 10/18/20 10:02:00 EDT, Dry Weight Start Date: 11/19/20 Stop Date: 01/18/21 Status: Ordered Quantity: 200.0 Unit: each Repeat number: 2 levothyroxine 75 mcg (0.075 mg) oral tablet 1 tablet = 75 mcg, By Mouth, Daily, # 30 tablet, 1 Refills, Maintenance, 06/22/24 3:29:00 PM EST, Tablet, [facility], Partial fill upon patient request if the prescription is for a schedule II opioid drug., 165, cm, 06/22/24 12:19:00 EST, Height, 95.9, kg, 06/21/24 4:13:00 EST, Dry Weight Start Date: 06/22/24 Stop Date: 08/21/24 Status: Ordered Quantity: 30.0 Unit: tablet Repeat number: 2 losartan 25 mg oral tablet 25 mg, Tablet, By Mouth, 06/22/24 9:00:00 AM EST Start Date: 06/22/24 Stop Date: 06/22/24 Status: Completed Repeat number: 1 losartan 25 mg oral tablet 25 mg, 1, tablet, By Mouth, Daily, # 30 tablet, Refills 1, Tot. Refills 1, Maintenance, 06/22/24 3:17:00 PM EST, Route to Pharmacy Electronically, [facility], Partial fill upon patient request if the prescription is for a schedule II opioid drug., 165, cm, 06/22/24 12:19:00 EST, Height, 95.9, kg, 06/21/24 4:13:00 EST, Dry Weight Start Date: 06/22/24 Stop Date: 08/21/24 Status: Ordered Quantity: 30.0 Unit: tablet Repeat number: 2 metoprolol 100 mg oral tablet, extended release 100 mg, 1, tablet, By Mouth, Daily, # 30 tablet, Refills 1, Tot. Refills 1, Maintenance, 06/22/24 3:16:00 PM EST, Route to Pharmacy Electronically, [facility], Partial fill upon patient request if the prescription is for a schedule II opioid drug., 165, cm, 06/22/24 12:19:00 EST, Height, 95.9, kg, 06/21/24 4:13:00 EST, Dry Weight Start Date: 06/22/24 Stop Date: 08/21/24 Status: Ordered Quantity: 30.0 Unit: tablet Repeat number: 2 metoprolol 50 mg oral tablet 50 mg, Tablet, By Mouth, 06/22/24 9:00:00 AM EST Start Date: 06/22/24 Stop Date: 06/22/24 Status: Completed Repeat number: 1 Misc Rx Refills 0, Maintenance, THC/Melantonin at bedtime 1 gummie, 09/07/22 8:45:00 AM EDT, Supply Start Date: 09/07/22 Status: Ordered Repeat number: 1 Norvasc 10 mg oral tablet 10 mg, Tablet, By Mouth, 06/22/24 9:00:00 AM EST Start Date: 06/22/24 Stop Date: 06/22/24 Status: Completed Repeat number: 1 Norvasc 10 mg oral tablet 10 mg, 1, tablet, By Mouth, Daily, # 90 tablet, Refills 0, Tot. Refills 0, Maintenance, 05/04/16 1:49:09 PM EST, Route to Pharmacy Electronically, [facility] Start Date: 05/04/16 Stop Date: 08/02/16 Status: Ordered Quantity: 90.0 Unit: tablet Repeat number: 1 ticagrelor 90 mg oral tablet 1 tablet = 90 mg, By Mouth, 2 times a day, # 60 tablet, 11 Refills, Maintenance, 06/22/24 3:17:00 PMEST, Tablet, [facility], Partial fill upon patient request if the prescription is fora schedule II opioid drug., 165, cm, 06/22/24 12:19:00 EST, Height, 95.9, kg, 06/21/24 4:13:00 EST,Dry Weight Start Date: 06/22/24 Stop Date: 06/17/25 Status: Ordered Quantity: 60.0 Unit: tablet Repeat number: 12 Tylenol PM 2, By Mouth, Daily at bedtime, 0 Refills, Maintenance, 09/07/22 8:45:00 AM EDT, Partial fill upon patient request if the prescription is for a schedule II opioid drug. Start Date: 09/07/22 Status: Ordered Repeat number: 1 Problem List Condition Confirmation Course Effective Dates [...] to oldest [Reference Range]: 1 2 3 4 Height 165 cm (06/22/24 12:19 PM) 165 cm (06/22/24 8:23 AM) 165 cm (06/21/24 4:13 AM) Weight 92.3 kg (06/21/24 4:13 AM) Oxygen Saturation [94-100 %] 95 % (06/22/24 12:19 PM) 98 % (06/22/24 8:23 AM) 95 % (06/22/24 7:00 AM) Pulse Rate [55-90 bpm] 76 bpm (06/22/24 12:19 PM) 78 bpm (06/22/24 8:54 AM) 78 bpm (06/22/24 8:23 AM) Body Mass Index [18.5-24.99 kg/m2] 33.9 kg/m2 *>HHI* (06/21/24 4:13 AM) Blood Pressure [90-138/55-84 mm Hg] 132/74mm Hg (06/22/24 12:19 PM) 140/90mm Hg *H* (06/22/24 11:14 AM) 140/90mm Hg *H* (06/22/24 8:54 AM) 140/90mm Hg *H* (06/22/24 8:54 AM) Respiratory Rate [16-30 br/min] 20 br/min (06/22/24 12:19 PM) 20 br/min (06/22/24 8:23 AM) 11 br/min *L* (06/22/24 7:00 AM) Temperature [96.8-100.4 DegF] 98.2 DegF (06/22/24 12:19 PM) 98.0 DegF (06/22/24 8:23 AM) 98.1 DegF (06/22/24 5:00 AM) Mode of Delivery (Oxygen) Room air (06/22/24 12:19 PM) Room air (06/22/24 8:23 AM) Room air (06/22/24 7:00 AM) Blood pressure sites Arm, left (06/22/24 12:19 PM) Arm, left (06/22/24 8:23 AM) Arm, left (06/22/24 7:00 AM) Temperature Route Oral (06/22/24 12:19 PM) Oral (06/22/24 8:23 AM) Oral (06/22/24 5:00 AM) Dry Weight 95.9 kg (06/21/24 4:13 AM) Weight Obtained Via Bed scale (06/21/24 4:13 AM) Dry Weight Obtained Via Bed scale (06/21/24 4:13 AM) Social History Social History Type Response Smoking Status Never (less than 100 in lifetime) entered on: 08/28/22 Sex Female Sex Representation Female (finding) Note * Lemuel Celestin: PERFORM, SIGN, VERIFY Event Display: Cardiac Rehab Note Authored Date: [id number] Patient: YEMI SMITH Age: 64 years Sex: Female : 1960 Associated Diagnoses: None Author: Lemuel Celestin Diagnosis Cardiac Rehab Diagnosis: S/P NSTEMI, S/P LORIE/RCA. Pre-exercise Vitals Vital Signs: 70 HR, 140/90 BP Sitting, 97% RA SaO2. Vital Signs Comment: Reviewed in CIS, RN informed of Vital Sign changes. Pre-exercise Physical Examination Neurologic: alert & oriented. Cardiovascular: heart rate regular. Lungs: Normal I:E, Cough no. Activity Symptoms with Cardiac Rehab Symptoms: No exertional symptoms. Activity Transfers: independent. Ambulate: independent. Patient Education Education: Patient alone, Written material included, Post procedure guidelines, Stent card reviewed. Education topic Teachback comprehension 75% Topic: Pathophysiology, Lipid management, Diabetes management, Medication education, Role of exercise, Home activity guidelines/limits, Infarct recovery guidelines. Reinforcement needed: Medication education, Role of exercise, Infarct recovery guidelines. Recommendation and Plan Outpatient follow up recommended: Pt unable to go due to her work schedule. Cardiac Rehab: Will sign off at this time. Recommendation comment: RN notified of plan. * Will Mckay RN: PERFORM Event Display: Discharge/Transfer Note Hospital Authored Date: [id number] Nursing Discharge Note Entered On: 06/22/2024 16:38 EST Performed On: 06/22/2024 16:38 EST by Will Mckay RN Nursing Discharge Note 2 Patient Instructions Discharge Signed : Yes Leslee Norris RN - 06/22/2024 16:41 EST Discharge Time : 06/22/2024 16:30 EST Discharge Level of Care at Discharge : Home/Skilled Nursing/Foster Care Patient Left Unit Via : Wheelchair Patient Accompanied Off Unit with : Responsible adult DC Instructions Provided & Signed by Pt : Yes Patient Understands D/C Instructions : Yes Did Pt have Specialty Bed or Wound Vac : No Will Mckay RN - 06/22/2024 16:38 EST * Jluia Medina NP: PERFORM, MODIFY Event Display: Discharge/Transfer Note Hospital Authored Date: [id number] Patient: ??YEMI SMITH ? Age:??64 Years?Sex:??Female?:??1960?? Patient Information Discharge Location: Primary Care Physician: Lorena Archer MD Admit Date/Time: 06/21/2024 04:09 Discharge Disposition Discharge Disposition: Home: No Services Discharge Diagnosis NSTEMI (non-ST elevated myocardial infarction) (I21.4) _ Discharge Medications Acetaminophen-Diphenhydramine (Tylenol PM)?2?By Mouth?Daily at bedtime Amlodipine (Norvasc 10 mg oral tablet)?10?Milligram?1?tablet?By Mouth?Daily?for 90?Days Aspirin (aspirin 81 mg oral tablet, chewable)?81?Milligram?1?tablet?By Mouth?Daily Atorvastatin (atorvastatin 80 mg oral tablet)?1?tab(s)?80?Milligram?By Mouth?Daily at bedtime Durable Medical Equipment (Freestyle Lancets)?See Instructions?for 30?Days?use as directed to check BS twice daily for Type 2 Diabetes Mellitus Durable Medical Equipment (Freestyle Lite Monitor)?See Instructions?for 30?Days?use as directed to check BS twice daily for Type 2 Diabetes Mellitus Durable Medical Equipment (Freestyle Lite Test Strips)?See Instructions?for 30?Days?useas directed to check BS twice daily for Type 2 Diabetes Mellitus Levothyroxine (levothyroxine 75 mcg (0.075 mg) oral tablet)?1?tab(s)?75?Microgram?ByMouth?Daily?for 30?Days Losartan (losartan 25 mg oral tablet)?25?Milligram?1?tablet?By Mouth?Daily?for30?Days Metoprolol (metoprolol 100 mg oral tablet, extended release)?100?Milligram?1?tablet?By Mouth?Daily?for 30?Days Miscellaneous Rx (Misc Rx)?THC/Melantonin at bedtime 1 gummie Ticagrelor (ticagrelor 90 mg oral tablet)?1?tab(s)?90?Milligram?By Mouth?2 times a day?for 30?Days ? Quality Measures Chest Pain, AMI Quality Measures:?ACEI or ARB for LVSD:??ARB has been prescribed ?Beta-Sva Prescribed at Discharge:??Beta-Sav Prescibed ? Inpatient Medications Medications (16) Active SCHEDULED: (8) Amlodipine 10 mg Tablet (Norvasc 10 mg oral tablet) ??10 mg, By Mouth, Daily Aspirin 81 mg EC Tablet (aspirin 81 mg oral delayed release tablet) ??81 mg, By Mouth, Daily Atorvastatin 80 mg Tablet (atorvastatin 80 mg oral tablet) ??80 mg, By Mouth, Daily Levothyroxine 75 mcg Tablet (levothyroxine 0.075 mg oral tablet) ??75 mcg, By Mouth, Daily Losartan 25 mg Tablet (losartan 25 mg oral tablet) ??25 mg, By Mouth, Daily Metoprolol 50 mg Tablet (metoprolol 50 mg oral tablet) ??50 mg, By Mouth, 2 times a day NaCl 0.9% Flush 3ml (NaCL 0.9% Flush) ??3 mL, IV Push, Every 8 hours Ticagrelor 90 mg Tablet (Ticagrelor Tablet) ??90 mg 1 tablet, By Mouth, 2 times a day CONTINUOUS: (2) NaCL 0.9% (1000 mL) Cont IV 287.7 mL (NaCL 0.9% Bolus 287.7 mL) ??287.7 mL, IV Infusion Sodium Chloride 0.9% 1000 mL [1.5 mL/kg/hr] (Sodium Chloride 0.9% Normalized 1000 mL [1.5 mL/kg/hr]) ??1,000 mL, IV Infusion, 143.85 mL/hr PRN: (6) Acetaminophen 325 mg Tablet (Acetaminophen Tablet) ??650 mg, By Mouth, Every 4 hours Aspirin 81 mg Chew Tablet (Aspirin Chew Tablet) ??324 mg, Chew, Once NaCl 0.9% Flush 3ml (NaCL 0.9% Flush) ??3 mL, IV Push, Every 8 hours Nitroglycerin 2% Oint UD (Nitroglycerin 2% Topical) ??2 inches, Topically, Every 4 hours Polyethylene Glycol 17 Gm Powder (MiraLax Powder) ??17 Gm 1 pack/packet, By Mouth, Daily Senna Tablet (Senna 8.6 mg oral tablet) ??8.6 mg 1 tablet, By Mouth, Daily ? Medications Started ticagrelor losartan ?? Medications Discontinued isosorbide meloxicam ?? Doses Changed metoprolol changed to XL levothyroxine dose decreased ? Allergies Allergies ?(Active and Proposed Allergies Only) Percocet 7.5/325? (Severity: Unknown severity, Onset: Unknown) ?Reactions: Vomiting Bactrim? (Severity: Unknown severity, Onset: Unknown) ?Reactions: Rash metFORMIN? (Severity: Unknown severity, Onset: Unknown) ?Reactions: Diarrhea ? PCP Follow-Up/Heads-Up follow up thyroid, levothyroxine dose decreased ?? Hospital Course Yemi is a??64-year-old female with history of multivessel CAD s/p LORIE to LAD and LCx 2016; LORIE to RCA 2020, T2DM, HTN, HLD, Graves disease s/p ablation, and obesity, who was??transferred from [facility] for NSTEMI. Cardiac cath 06/21 revealed severe thrombotic distal RCA occlusion s/p LORIE x1. Echocardiogram revealed a moderately reduced EF 40-45% with hypokinetic basal and mid inferoseptal and inferior bender.? NSTEMI Multivessel CAD s/p PCI (LORIE to LAD, LCx, RCA) ischemic cardiomyopathy with LVEF 40-45% HTN?? HLD?? Chest pain x1 day with elevated troponin.?? Q waves, T wave, seen on EKG and leads II to III and aVF concerning for RCA stent restenosis given that patient previously had LORIE placed in RCA in 2020?? Patient's troponin levels continue to trend upwards however she remains chest pain-free??and her blood pressure is??well-controlled on??her home medications??that were started this morning. ?? Cardiac cath report from 10/18/2020, Dr. Dee: Culprit of non-STEMI: 90% distal RCA stenosis, likely plaque rupture. Otherwise moderate CAD in RCA. Stents in LAD and LCx are patent. No obstructive CAD in LAD or LCx. ? Plan: -continue ASA 81 mg daily -Continue home atorvastatin 80 mg -Start losartan 25 mg -continue metoprolol, transitioned to XL,??and amlodipine -reassess for need for Imdur??outpt -pt will followup with Dr. Duenas ? Type 2 DM H/o Graves disease with post-ablative hypothyroidism Only medication is Ozempic for weight loss, no other DM related meds.?Diabetes very well-controlled patient's A1c is 6 On patient's??thyroid studies it appears the patient is??in a hyperthyroid state.?Therefore willreduce patient's??levothyroxine Plan: -Levothyroxine 75 mcg daily -resume home diabetes regimen ?? Objective Measurements?? Height: 165 cm (06/22/24) Weight: 92.3 kg (06/21/24) Dry Weight: 95.9 kg (06/21/24) Body Mass Index:??33.9 kg/m2??Critical (06/21/24) ? Vital Signs?? Temperature: 98.2 DegF (06/22/24 12:19:00) Temperature Route: Oral (06/22/24 12:19:00) Pulse Rate: 76 bpm (06/22/24 12:19:00) Heart Rate Monitored: 76 bpm (06/22/24 07:00:28) Respiratory Rate: 20 br/min (06/22/24 12:19:00) Systolic Blood Pressure: 132 mm Hg (06/22/24 12:19:00) Diastolic Blood Pressure: 74 mm Hg (06/22/24 12:19:00) Blood pressure sites: Arm, left (06/22/24 12:19:00) Mean Arterial Pressure: 93 mm Hg (06/22/24 12:19:00) Pulse Pressure: 58 mm Hg (06/22/24 12:19:00) Oxygen Saturation: 95 % (06/22/24 12:19:00) Mode of Delivery (Oxygen): Room air (06/22/24 12:19:00) Early Warning Score: 2 (06/22/24 12:21:28) ? Intake/Output? 06/21 04:09 06/22 07:00 06/21 07:00 06/20 07:00 06/19 07:00 ?? 06/22 15:19 06/22 15:19 06/22 06:59 06/21 06:59 06/20 06:59 Intake ?700.1 ?0 ?700.1 ?0 ?0 Output ?0 ?0 ?0 ?0 ?0 Net Total ?700.1 ?0 ?700.1 ?0 ?0 ? Urine Count ? 10 ?0 ? 10 ?0 ?0 ? . Physical Exam General: Alert, sitting in chair comfortably, in NAD.??Ambulated independently,??steady??gait. Mental: Oriented x3. Appropriate affect. Converses easily HEENT: Normocephalic. Pupils round, equal. Mucous membranes moist. Neck: Full ROM Respiratory:??CTA. Nonlabored. Cardiovascular:??RRR. S1/S2. No M/R/G. No edema. No JVD. Gastrointestinal: Abdomen soft, non-tender, non-distended. Active bowel sounds. Neuro: Grossly intact. Moves all extremities spontaneously. Skin: [place], warm. CDI. Patient Education Titles Web[employer] Patient Education - Exercising After a Heart Attack?? [employer] Patient Education - Living Well After a Heart Attack?? [employer] Patient Education - Discharge Instructions for Heart Attack?? Follow-Up Appointments Added Follow Up ?Time Frame ?Comments Gallito Zavaleta MD , Lorena Odonnell?1 to 2 weeks Yulissa CABELLO, Sebastian N?4 to 5 weeks?Office should call withappointment. Please call if you do not hear from them by early next week.?? Home Health Face to Face ^HomeHealthFTF Results Discharge Labs BLOOD COUNT & DIFF WBC 14.0 k/mm3 (High)?? 06/22/2024 05:10 RBC 5.24 m/mm3 ()?? 06/22/2024 05:10 Hgb 15.5 Gm/dL ()?? 06/22/2024 05:10 Hct 45.2 % ()?? 06/22/2024 05:10 MCV 86.3 femtoliters ()?? 06/22/2024 05:10 MCH 29.6 pg ()?? 06/22/2024 05:10 MCHC 34.3 Gm/dL ()?? 06/22/2024 05:10 Platelet Count 312 k/mm3 ()?? 06/22/2024 05:10 RDW-SD 43.2 femtoliters ()?? 06/22/2024 05:10 MPV 10.4 femtoliters ()?? 06/22/2024 05:10 Nucleated RBC (Automated) 0.0 #/100 WBC'S ()?? 06/22/2024 05:10 Abs. NRBC 0.0 k/mm3 ()?? 06/22/2024 05:10 ?? CARDIAC High Sensitivity Troponin (HSTnT) 2354 ng/L (Critical)?? 06/21/2024 12:03 ? CHEM GENERAL Sodium 138 mmol/L ()?? 06/22/2024 05:10 Potassium 3.9 mmol/L ()?? 06/22/2024 05:10 Chloride 103 mmol/L ()?? 06/22/2024 05:10 Bicarbonate Level 23 mmol/L ()?? 06/22/2024 05:10 Anion Gap 12 mmol/L ()?? 06/22/2024 05:10 Glucose Level 138 mg/dL (High)?? 06/22/2024 05:10 Glucose, POC 156 mg/dL (High)?? 06/21/2024 04:23 Hemoglobin A1C (Monitoring) 6.0 % (High)?? 06/21/2024 05:46 BUN 14 mg/dL ()?? 06/22/2024 05:10 Creatinine-Blood 0.57 mg/dL ()?? 06/22/2024 05:10 Estimated GFR Creatinine 103 ML/MIN/1.73 M2 ()?? 06/22/2024 05:10 Calcium 9.2 mg/dL ()?? 06/22/2024 05:10 Magnesium 2.1 mg/dL ()?? 06/21/2024 05:46 ? COAG APTT 30.8 seconds ()?? 06/21/2024 12:03 POC ACT-LR 332.0 seconds ()?? 06/21/2024 18:25 ?? ENDOCRINE/TUMOR MARKER TSH 0.31 uIU/mL (Low)?? 06/21/2024 05:46 Free T4 1.81 ng/dL (High)?? 06/21/2024 05:46 ?? LIPID STUDIES Cholesterol 140 mg/dL ()?? 06/21/2024 05:46 Triglycerides 84 mg/dL ()?? 06/21/2024 05:46 HDL Cholesterol 60 mg/dL ()?? 06/21/2024 05:46 LDL Cholesterol 63 mg/dL ()?? 06/21/2024 05:46 Non HDL Cholesterol 80 mg/dL ()?? 06/21/2024 05:46 ? URINE OTHER Est Creatinine Clearance 91.94 mL/min ()?? 06/22/2024 05:53 ? VIROLOGY COVID-19 PCR Specimen Source NASAL ()?? 06/21/2024 06:00 COVID-19 PCR Result NEGATIVE ()?? 06/21/2024 06:00 ? Blood Glucose Trend Glucose Level:??138 mg/dL??High (06/22/24 05:10:00) ? Microbiology ?? COVID-19 (2019 Novel Coronavirus) PCR?? Completed?? Source: Nasal Body Site: Nose Collected Dt/Tm: 06/21/2024 06:06 Last Updated Dt/Tm: 06/21/2024 07:13 ? Procedure ?Diagnostic Cardiac Cath??06/21/2024 17:52 by Yulissa CABELLO, [facility] ?Conclusions ?Diagnostic Summary ??Left cardiac catheterization with coronary angiography. ??Right radial access, closed with TR band. ??Right dominant coronary circulation. ?LVEDP 5 mmHg, no pullback gradient across the aortic valve. ?The patient presents with acute onset chest pain symptoms, ruled in for ??NSTEMI. She did have transient inferior ST elevations which resolved. ??Coronary angiography reveals a severe thrombotic distal RCA lesion, culprit ??lesion for patient's presentation. We decided to proceed with PCI of distal ??RCA. ?Interventional Summary ??Successful IVUS-guided PCI with drug eluting stenting of the distal RCA ??coronary artery with a 2.75mm x 15mm [place] stent as described above. ?Stent was post-dilated with a 2.75mm NC balloon achieving an excellent ??angiographic result. ?Interventional Recommendations ??Continue aspirin 81 mg indefinitely. ??Continue ticagrelor 90 mg po bid therapy for at least 12 month(s) post-PCI. ??Consider long-term DAPT if tolerated. ??IV fluid hydration per protocol. ??Guideline directed medical therapy for established coronary artery disease ??and cardiomyopathy. ??Followup with me at [facility] in 4-6 weeks per patient's ??request. ?ACC Diagnostic Recommendations: PCI without planned CABG. ?Complications:No complications. ?Signatures ? [1] ? Image ?Echo Complete??06/21/2024 07:39 by Jesi Alonzo MD ?Summary ??The left ventricular size is normal. Left ventricular wall thickness is ??normal. The LV systolic function is mildly reduced. The left ventricular ??ejection fraction visually is 40-45 %. Hypokinetic basal and mid ??inferoseptal and inferior bender. Grade I, mild diastolic dysfunction with ??impaired LV relaxation. ??The aortic valve is poorly visualized. There is no significant aortic ??stenosis or insufficiency. ??The right ventricle is poorly visualized but size and function appears ??grossly normal. ??There is a small circumferential pericardial effusion near LV base. There is ??no evidence of cardiac tamponade. ?Comparison ??No prior study available for comparison. ?Signature ? [2] ? 35??minutes spent on discharge ? pt discussed with attending, Dr. Gutierrez [1]??Diagnostic Cardiac Cath; Yulissa CABELLO, Sebastian N 06/21/2024 17:52 EST [2]??Echo Complete; Cheri CABELLO, Jesi Kim 06/21/2024 07:39 EST * Jim Gutierrez MD: PERFORM Event Display: Discharge/Transfer Note Hospital Authored Date: Patient seen and evaluated personally on the date of service and personally carried out all of the above evaluation.?? Agree with above assessment and plan for discharge.?? The patient presented withan NSTEMI and received a distal RCA stent.?? No post stent complications.?? Tolerating dual antiplatelet therapy.?? Has a follow-up [facility] cardiology on Wednesday.?? Left-ventricular function mildly reduced with LVEF 40 to 45%.?? Ambulating without difficulty.?? No heart failure or ventriculararrhythmias.?? Will plan to discharge later in the day if ambulating and continues to do well and tolerate morning medications. * Jr COTA, Leslee: PERFORM Event Display: Patient Education/Instruction Authored Date: Inpatient Adult Discharge Instructions. [address] [address] Name: YEMI SMITH : 1960?? Visit: 06/21/2024 04:09?? Current Date: 06/22/2024 15:43 ?? Account: [id number]?? Inpatient Adult Discharge Instructions We would like [...] and their families. Surveys are administered by [facility] ?? If further treatment with your primary care physician or another doctor is recommended, it is important for you to keep the appointment. Call your primary care physician or return to the Emergency Department immediately if your condition worsens, fails to improve, or new symptoms develop. If you need to find a doctor, you can call [facility] Link for a referral at [phone] or toll free at [phone]) or log in to [email or web address].. ?? [facility], in keeping with [facility] guidance, no longer requires face masks for staff, patientsor visitors in most situations. Similiar to time spent indoors at other locations, there is the chance that you were exposed to repiratory viruses during your time with us (such as flu or COVID-19). If you develop symptoms concerning for a viral respiratory infection, please seek testing (and treatment if indicated) from your medical provider or home test kit. ?? You can view and manage your care through the patient portal or by using a health care bettina of your choosing. [employer] is a website that allows you to securely view your medical information including your hospital discharge summary, office visit summaries, medications and follow-up visits. You can also request appointments, renew medications, and request access to your medical information using a health care bettina of your choosing, or just ask a question. You can enroll at [email or web address] or register during your next office visit. You have been discharged from [facility], Patient Care Unit: M6??. If you have any questions regarding these instructions, including results of studies pending, afteryou leave, please call us and we will be happy to assist you 14/12. [facility] Your Care Team Attending Physician Jim Gutierrez MD?? Consulting Providers Jim Gutierrez MD?? Discharging Providers Julai Medina NP Your Diagnosis NSTEMI (non-ST elevated myocardial infarction) Tests Performed Below is a partial list of the tests performed during your hospitalization. You may have had other tests and procedures not included in this list. Please discuss all test results with your provider. Basic Metabolic Panel CBC COVID-19 (2019 Novel Coronavirus) PCR FREE T4 GLUCOSE POC HEMOGLOBIN A1C High Sensitivity Troponin T LIPID PANEL MAGNESIUM POC Hemochron ACT-LR PTT Troponin T, High Sensitivity TSH Add On Lab Order?? Basic Metabolic Panel?? CBC?? COVID-19 (2019 Novel Coronavirus) PCR?? Free T4?? Glucose POC?? Hemoglobin A1C (Monitoring) (HEMOGLOBIN A1C)?? High??Sensitivity??Troponin T (Troponin T, High Sensitivity)?? Lipid Panel?? Magnesium Level (MAGNESIUM)?? POC ACT-LR (POC Hemochron ACT-LR)?? PTT?? TSH?? Primary Care Provider Lorena Archer MD? Advance Directive Health Care Proxy on File No Discharge Vitals Temperature: 98.2 DegF Height: 165 cm Pulse Rate: 76 bpm Weight: 92.3 kg Respiratory Rate: 20 br/min Body Mass Index:??33.9 kg/m2??Critical Systolic Blood Pressure: 132 mm Hg Body surface area: 2.06 Diastolic Blood Pressure: 74 mm Hg ?? Oxygen Saturation: 95 % ?? Studies Pending All studies ordered during this hospital stay have been completed unless listed below. Please discuss all pending results with your provider listed above in these instructions. ?? Add On Lab Order?? What to do next Instructions From Your Doctor ?? Orders?? to [place], ??06/22/24 15:34:00 EST?? You Need to Schedule the Following Appointments Follow Up with??Lorena Archer MD When:??Within 1 to 2 weeks Where: [address] [place] [address]- Follow Up with??Yulissa CABELLO, Sebastian N When:??Within 4 to 5 weeks Why: Office should call with appointment. Please call if you do not hear from them by early next week.?? Where: [address] [place] [address] [place] [address]- Discharge Medications YEMI SMITH :1960 Visit Date:06/21/2024 Medications: Please continue your medications until treatment is completed or stopped by your provider. Medications not listed below should be discontinued. Discuss any questions related to medications with your provider. What How Much When Instructions Next Dose New Losartan (losartan 25 mg oral tablet) 1 tab(s) Oral Daily Duration: 30 Days Refills: 1 Pickup at [place] [address] Tomorrow New Ticagrelor (ticagrelor 90 mg oral tablet) 1 tab(s) Oral Twice a day Duration: 30 Days Refills: 11 Pickup at [place] [address] Tonight Changed Levothyroxine (levothyroxine 75 mcg (0.075 mg) oral tablet) 1 tab(s) Oral Daily Duration: 30 Days Pickup at [place] [address] Tomorrow morning Changed Metoprolol (metoprolol 100 mg oral tablet, extended release) 1 tab(s) Oral Daily Duration: 30 Days Pickup at [place] [address] Tomorrow morning Unchanged Acetaminophen-Diphenhydramine (Tylenol PM) 2 Oral Daily at Bedtime continue home regimen Unchanged Amlodipine (Norvasc 10 mg oral tablet) 1 tab(s) Oral Daily Duration: 90 Days Tomorrow Unchanged Aspirin (aspirin 81 mg oral tablet, chewable) 1 tab(s) Oral Daily Tomorrow Unchanged Atorvastatin (atorvastatin 80 mg oral tablet) 1 tab(s) Oral Daily at Bedtime Tomorrow Unchanged Durable Medical Equipment (Freestyle Lancets) See [...] for Type 2 Diabetes Mellitus ?? Unchanged Miscellaneous Rx (Misc Rx) THC/ Melantonin at bedtime 1 gummie ?? Pharmacy Information [facility] 3: [address], [place] [phone] ?? What How Much When Comments Stop Taking Isosorbide Mononitrate (Imdur 30 mg oral tablet, extended release) 90 Milligram Oral Daily in the morning Stop Taking linagliptin (Tradjenta 5 mg oral tablet) 1 tab(s) Oral Daily Stop Taking Meloxicam (meloxicam 15 mg oral tablet) 1 tab(s) Oral Daily Prescription Given During Visit Levothyroxine (levothyroxine 75 mcg (0.075 mg) oral tablet) - 1 tablet = 75 mcg, By Mouth, Daily, #30 tablet, 1 Refills, [address] [address] [phone]?? Losartan (losartan 25 mg oral tablet) - 1 tablet = 25 mg, By Mouth, Daily, # 30 tablet, 1 Refills, [address] [address] [phone]?? Metoprolol (metoprolol 100 mg oral tablet, extended release) - 1 tablet = 100 mg, By Mouth, Daily, # 30 tablet, 1 Refills, [address] [address] [phone]?? Ticagrelor (ticagrelor 90 mg oral tablet) - 1 tablet = 90 mg, By Mouth, 2 times a day, # 60 tablet,11 Refills, [address] [address] [phone]?? Laboratory Results Below is a partial list of the most recent Laboratory test results done prior to this discharge. You may have had other tests and procedures not included in this list. Please discuss all test resultswith your provider. Est Creatinine Clearance - 91.94 mL/min (06/22/2024) Basic Metabolic Panel (06/22/2024) ???Sodium - 138 mmol/L???Potassium - 3.9 mmol/L???Chloride - 103 mmol/L???Bicarbonate Level - 23 mmol/L???Anion Gap - 12 mmol/L???Glucose Level - 138 mg/dL???BUN - 14 mg/dL???Creatinine-Blood - 0.57 mg/dL???Estimated GFR Creatinine - 103 ML/MIN/1.73 M2???Calcium - 9.2 mg/dL CBC (06/22/2024) ???WBC - 14.0 k/mm3???RBC - 5.24 m/mm3???Hgb - 15.5 Gm/dL???Hct - 45.2 %???MCV - 86.3 femtoliters???MCH - 29.6 pg???MCHC - 34.3 Gm/dL???Platelet Count - 312 k/mm3???RDW-SD - 43.2 femtoliters???MPV - 10.4 femtoliters???Nucleated RBC (Automated) - 0.0 #/100 WBC'S???Abs. NRBC - 0.0 k/mm3 COVID-19 (2019 Novel Coronavirus) PCR (06/21/2024) ???COVID-19 PCR Specimen Source - NASAL???COVID-19 PCR Result - NEGATIVE FREE T4 (06/21/2024) ???Free T4 - 1.81 ng/dL GLUCOSE POC (06/21/2024) ???Glucose, POC - 156 mg/dL HEMOGLOBIN A1C (06/21/2024) ???Hemoglobin A1C (Monitoring) - 6.0 % High Sensitivity Troponin T (06/21/2024) ???High Sensitivity Troponin (HSTnT) - 1826 ng/L LIPID PANEL (06/21/2024) ???Cholesterol - 140 mg/dL???Triglycerides - 84 mg/dL???HDL Cholesterol - 60 mg/dL???LDL Cholesterol - 63 mg/dL???Non HDL Cholesterol - 80 mg/dL MAGNESIUM (06/21/2024) ???Magnesium - 2.1 mg/dL POC Hemochron ACT-LR (06/21/2024) ???POC ACT-LR - 332.0 seconds PTT (06/21/2024) ???APTT - 30.8 seconds Troponin T, High Sensitivity (06/21/2024) ???High Sensitivity Troponin (HSTnT) - 2354 ng/L TSH (06/21/2024) ???TSH - 0.31 uIU/mL You will be contacted within 72 hours with your results. Allergies (NKA means No Known Allergies) Bactrim??(Rash) Percocet 7.5/325??(Vomiting) metFORMIN??(Diarrhea) Problems Active Problems??(8) Graves disease S/P radioactive iodine 2012?? HLD (hyperlipidemia)?? HTN (hypertension)?? Hypothyroidism?? NSTEMI (non-ST elevated myocardial infarction) with normal Cath 2005?? OA (osteoarthritis) of knee?? Obese class I?? Obesity?? Education Materials Below is the list of Educational Leaflet Providered with your Discharge Instructions. WebMD Ignite Patient Education - Discharge Instructions for Cardiac Catheterization?? Web[employer] Ignite Patient Education - Exercising After a Heart Attack?? Web[employer] Ignite Patient Education - Living Well After a Heart Attack?? Web[employer] Ignite Patient Education - Discharge Instructions for Heart Attack?? Valuables and Belongings I fully understand and agree that [facility] accepts no responsibility for all my personal [...] patient Date for Pt to Sign Valuables/Belongings: 06/21/24 04:38:00 ?? Other Discharge Information ? Pulmonary Rehab Status?? Pulmonary Rehab Discharge Status?? Respiratory Rate: 20 br/min ? Cardiac Rehab Assessment?? Cardiac Rehab Inpatient Assessment?? Comments-Education: S/P NSTEMI AND PCI EDUCATIONHEART BOOK REVIEW Comments-Smoking Cessation: NA Comments-Exercise Activity: PROGRESSIVE AMB WILLIAM Comments-Nutrition: PER RD Comments-Lipids: PROFILE PENDING Comments-Other plan of care: PHASE 2 CARDIAC REHAB 2 WEEKS Common Emergency Awareness Tips IS IT A [...] are strongly encouraged to quit. Please call [facility] [employer] Link at [phone] or [phone] ([phone]) or log in to [email or web address] for referrals to smoking cessation programs. ?? 713 Suicide & Crisis Lifeline is available 14/12 if you or someone you know needs to find a reason to keep living. By calling 374 you'll be connected to a skilled, trained counselor at a crisis center in your area. INPATIENT DISCHARGE INSTRUCTIONS SIGNATURE YEMI LINCOLN Location:[facility] Registration Date and Time:06/21/2024 04:09 EST Primary Care Physician: Gallito Zavaleta MD , Lorena Odonnell, Attending Physician: Jim Gutierrez MD, I YEMI SMITH, have received the above patient education materials/instructions and have verbalized understanding. If ambulance or transport services are being used I further acknowledge being givena choice of service. ?? If you need to contact me, please call me at this number: . Patient/Blacksmith Helper Name: Patient/Blacksmith Helper Signature: Relationship to Patient: Witness Name/Signature: Date: * Leslee Norris RN: PERFORM Event Display: Patient Education Leaflets Authored Date: [id number] Discharge Instructions for Cardiac Catheterization ?? 84321 Discharge Instructions for Cardiac Catheterization Cardiac catheterization??is an invasive??procedure??to look for certain heart problems. These problems may affect the heart's chambers, valves, and blood vessels. A thin, flexible tube (catheter) is put in a blood vessel in your groin or arm. The catheter is moved to the heart. The healthcare provider can look at the blood flow, blood pressure, and oxygen. They can inject contrast fluid??into your blood. This flows to your heart.??The provider can then take X- rays pictures?? of your heart. Coronary angiography is often done as part of a cardiac cath. This looks for blocked areas in the arteries that send blood to the heart. If a blockage is found, your provider may try to open up the artery. They may put a stent in place. Your provider will talk with you about the results of your procedure . Ask any questions you have before you leave. This sheet will help you take care of yourselfat home. Home care ??? Have a responsible adult drive you home after your procedure. ??? Don't drive or makeany important decisions for at least 24 hours after getting any type of sedation or anesthesia.? Drink?? 6 to 8??glasses of water over the next 24 hours. This is to help flush the contrast dye out of your body. Call your healthcare team if your urine has any change in color. ??? Take your tempe rature each day for 3 to 5 days. If you feel cold and clammy or start sweating, take your temperature right away. Call your healthcare team. ??? Do only light and easy activities for??the next?? 2 to3??days. Ask for help with chores and errands while you recover. Have someone drive you to your appointments. ??? Don't lift anything heavy??until your healthcare team says it's safe. ??? Ask your healthcare team when you can expect to return to work. Unless your job involves lifting, you may be able to return to your normal activities within 2 days. ??? Take your medicines as directed. Don't skip doses. ??? Check your incisions every day for signs of infection. These include redness, swelling,and fluid leaking. It's normal to have a small bruise or bump where the catheter was put in. A bruise that's getting larger is not normal. Tell your healthcare team about this. Call your healthcare team if you see blood forming in the incision. Go to the emergency room if you have uncontrolled bleeding from the artery site. This is even more important if you take medicines that make it hard for yo ur blood to clot. These include aspirin, clopidogrel, warfarin, apixaban, and rivaroxaban. ??? Eat a healthy diet. Make sure it's low in fat, salt, and cholesterol. Ask your healthcare team for diet information. ??? Stop smoking. Sign up for a quit-smoking program. Or ask your healthcare team for help. ??? Exercise as your healthcare team tells you to. Your healthcare team??may advise you to start a cardiac rehab program. Cardiac rehab is an exercise program where trained healthcare staff watchyour progress and stress on your heart while you exercise. Ask your team how to enroll. ??? Don't swim or take baths until your healthcare team says it???s OK. You can shower the day after the procedure. Keep the site clean and dry. This keeps the incision from getting wet and infected until the skin and artery can heal. ??? Follow all other after-care instructions from your team.? Follow-up care ??? Make a follow-up appointment as advised. It's common to have a follow-up appointment 2 to 4 weeks after an angioplasty or coronary stent procedure. ??? Make a yearly appointment. This is??to make sure you're still doing well and not having any new symptoms. ??? Don't wait for a follow-up appointment if your medicines aren't working or you're having heart-related symptoms. Call your healthcare provider. ?? When to get medical care Call your healthcare provider right away if you have any of these: ??? Severe or increasing pain, numbness, coldness, or a bluish color in the leg or arm that held the catheter ??? Fever of 100.4?? F??( 38??C) or higher, or as advised by your healthcare provider ??? Signs of infection at the incision site. These include redness, swelling, drainage, or warmth. ??? Bleeding, bruising, or a lot of??swelling where the catheter was inserted ??? Blood in your urine ??? Black or tarry stools ??? Any unusual bleeding ??? Irregular, very slow, or fast heartbeat ??? Dizziness ?? Call 911 Call 911 if you have any of these: ??? Chest pain ??? Shortness of breath ??? Sudden numbness or weakness in arms, legs, or face, or trouble speaking ??? The puncture site swells up very fast ??? Bleeding from the puncture site that doesn't slow down with firm pressure ?? Last Reviewed Date: 2021 ?? 5062-1706 The [employer]. All rights reserved. This information is not intended as a substitute for professional medical care. Always follow your healthcare professional's instructions. ?? * Julia Medina NP: PERFORM Event Display: Patient Education Leaflets Authored Date: [id number] Exercising After a Heart Attack ?? 36962 Exercising After a Heart Attack Aerobic exercises improve endurance. They also help your heart, lungs, and blood vessels work better. They make you breathe harder and sweat a bit. Most of your workout should consist of aerobic exercises. Good choices include walking, biking, and swimming. Strength exercises build muscle. They can also improve endurance, improve lean body mass, and reduce body fat percentage. Examples include lifting weights and using resistance bands. Most adults should do strength exercises at least 2 times a week. Stretching exercises increase flexibility, balance, and posture. Stretching is also a good way to reduce stress. Safety ??? Follow the guidelines your health care provider or cardiac rehab team has set for??you. ??? If nitroglycerin has been prescribed, keep it with you when exercising. Take as directed. Call 911 if you have chest pain that is not relieved by resting or taking nitroglycerin. Don't drive yourself to the emergency room. Call an ambulance or have someone else take you. It can be dangerous to drive if you are having a heart attack or after taking medicines that affect your blood pressure. ???Report any changes in symptoms, such as pain or shortness of breath, to your provider or rehab staff right away. ??? Besides keeping track of your symptoms, track your heart rate and blood pressure. ??? Slowly increase the level of exercise over several weeks. Don't feel as if you have to push 100%from the start. ??? Don't exercise right after eating large meals in very hot or cold temperatures.These events can increase the stress on your heart. ?? Last Reviewed Date: 2024 ?? 2751-5492 [employer]. All rights reserved. This information is not intended as a substitute for professional medical care. Always follow your healthcare professional's instructions. ?? * Julia Medina NP: PERFORM Event Display: Patient Education Leaflets Authored Date: [id number] Living Well After a Heart Attack ?? 16096 Living Well After a Heart Attack Recovery from a heart attack may take a few months. As you slowly get better, stick to the lifestyle changes you have made. Don???t go back to the same old habits. They may have led to your heart attack. After a heart attack, you are likely to be prescribed some new medicines. Some medicines help prevent future clots that could lead to another heart attack. Other medicines treat other conditions such as high blood pressure and high cholesterol. Take your medicines. And stick to the changes you???ve made to improve your heart and overall health. Here are more ways to help you live well after aheart attack. Follow up with your provider See your healthcare provider for follow-up visits as directed. During these visits, your provider will ask you about your medicines and how well they are working. If needed, your provider may change your dosage or prescribe new medicines. You may have tests done again. These can include blood tests, ECGs, or exercise stress tests. If you have questions, keep a list. Ask them during these visits. ?? Take care of yourself ??? Don???t push yourself. You may feel better. But listen to your body. Don???t push yourself too hard or too fast. If you go back to work, think about going part-time at first. ??? Build in some stress breaks. Every few hours, stop what you???re doing. Do some deep breathingor visualization. ??? Get enough sleep. This is even more important after a heart attack. Sleep helps your body heal. ??? Stay alert for signs of another heart attack. Get help right away if you think you???re having another heart attack. The sooner you get treatment, the less damage will be done to your heart. ??? Keep your new good habits. Be mindful of the good habits you've learned. Don't go back to your past unhealthy lifestyle. ?? Rely on your supports ??? Friends, family, and coworkers may want to help. But they likely don???t know how. Be honest about your heart attack. And tell them practical ways they can help out. ??? Tell friends, family, employers, and coworkers about limitations you have. ??? Encourage friends and coworkers to share lunchtime walks and healthy snacks with you. ??? Pick a few close friends to encourage you. This can be helpful if you have trouble with the changes you???re making. ??? Keep using support groups or heart rehab programs. These give ongoing support and structure. This can help you keep your heart-healthy changes for good. ??? Use your resources to help you stick to your new lifestyl e. This will let you make changes that last. ?? For family and friends Your loved one will have ups and downs. That???s normal. Help them focus on the positive. Sticking to lifestyle changes will help them feel better and be healthier. Think about making the same changes, too. That can help your loved one make and keep these new healthy habits. Always talk about your concerns with your loved one. Keep the conversation open. ?? Last Reviewed Date: 2021 ?? 3568-9574 The [employer]. All rights reserved. This information is not intended as a substitute for professional medical care. Always follow your healthcare professional's instructions. ?? * Event Display: Hemodynamic Procedure Report Authored Date: * Ely Garner RN: VERIFY, PERFORM, SIGN Event Display: Cardiac Rehab Note Authored Date: Patient: YEMI SMITH Age: 64 years Sex: Female : 1960 Associated Diagnoses: None Author: Ely Garner RN Recommendation and Plan Cardiac Rehab: Chart reviewed. Plan for Cardiac cath. Will follow and see patient when clinically ready for services.. Admission evaluation note * Stacey Kang MD: PERFORM, MODIFY Event Display: Admission Note Authored Date: Patient: ??YEMI SMITH ? Age:??64 Years?Sex:??Female?:??1960?? Chief Complaint/Reason for Consultation Chest pain History of Present Illness 64-year-old female with history of multivessel CAD s/p 2x PCI (LORIE to LAD and LCx 2016; LORIE to RCA 2020), T2DM, HTN, HLD, Graves disease s/p ablation, and obesity admitted as a transfer from [facility] for chest pain. Patient reports chest pain started yesterday. Pain is radiating across chest and down bilateral arms. Associated with nausea, had emesis x1. No weakness, syncope, or diaphoresis. She attributed the pain initially to being nervous about getting a spine injection yesterday, but the pain persisted after the procedure ultimately prompting ED presentation. ?? At OSH, patient was hypertensive 130s-160s systolic, mildly tachycardic, on room air. Serial ECGs with transient ST elevations in inferior leads 1-1.5 mm without reciprocal changes. Troponin I 259, rest of labs including lytes and renal function WNL (Cr 0.77).??She received an ASA load and was started on a heparin drip. Also treated with SL nitroglycerin followed by NTG paste with relief of chest pain. By time of [facility] arrival, she remained chest pain free and HDS. ECG with no acute ischemic changes. She was continued on heparin drip and added on to schedule for cardiac cath today. Review of Systems General: No pain, subjective fevers or chills HEENT: No congestion, rhinorrhea, sore throat Cardio: No chest pain, palpitations Resp: No SOB or cough GI: No abdominal pain, nausea, vomiting, diarrhea, or??constipation : No urinary retention or dysuria Neuro: No headache, weakness, LOC, or dizziness?? Objective ? Vital Signs?? No qualifying data available. ? Physical Exam General:??Alert, NAD Mental Status:??Oriented to person, time and place. Normal affect HEENT:??Normocephalic. PERRL, EOMI. MMM. Neck supple. Respiratory:??Normal work of breathing. CTAB. Cardiovascular: RRR, normal S1 and S2. No murmur. No lower extremity edema. Gastrointestinal:??Normal bowel sounds. Abdomen soft, non-tender, non-distended. No masses Neurologic:??Cranial nerves II-XII grossly intact, no focal neurological deficits. Skin:??No rashes, lesions or ecchymoses?? Extremities:??No gross deformities. Normal range of motion Assessment/Plan 64-year-old female with history of multivessel CAD s/p 2x PCI (LOREI to LAD and LCx 2016; LORIE to RCA 2020), T2DM, HTN, HLD, Graves disease s/p ablation, and obesity admitted as a transfer from [facility] for chest pain ?? Cardiovascular: NSTEMI Multivessel CAD s/p 2x PCI (LORIE to LAD, LCx, RCA) Chest pain x1 day with elevated troponin and transient RUSSEL in inferior leads at OSH (not meeting full STEMI criteria). Pain resolved with nitroglycerin.?? ECG upon [facility] arrival is non-ischemic and pt remains chest pain free. ?? For reference, Cardiac cath report from 10/18/2020, Dr. Dee: Diagnostic Summary Culprit of non-STEMI: 90% distal RCA stenosis, likely plaque rupture. Otherwise moderate CAD in RCA. Stents in LAD and LCx are patent. No obstructive CAD in LAD or LCx. ??? Plan: -Plan for cath 06/21 -Continue heparin drip -ASA 81 mg daily -Continue home atorvastatin 80 mg -Start losartan 25 mg -Echo ordered -ECG and NTG paste prn for chest pain -Hold home metoprolol and amlodipine -LFTs, HbA1c, TFTs ? Neuro: No active issues ? Pulmonary: No active issues ? Gastrointestinal: No active issues ? Renal/Electrolytes: No active issues ? Endocrine: Type 2 DM H/o Graves disease with post-ablative hypothyroidism Only medication is Ozempic for weight loss, no other DM related meds. ?? Plan: -Home levothyroxine ordered -Consider SGLT2i ? Infectious Disease: No active issues ? Hematology/Oncology: No active issues ? ICU Quality measures Stress Ulcer prophylaxis: NA Diet: NPO pending cath DVT prophylaxis: Heparin drip Code status: FULL, discussed on admission HCP: None appointed ? Stacey Kang MD Med-Peds PGY-4 P. [id number] or [place] [facility] ?? Patient to be discussed with morning attending physician ? Histories Allergies Allergies ?(Active and Proposed Allergies Only) Percocet 7.5/325? (Severity: Unknown severity, Onset: Unknown) ?Reactions: Vomiting Bactrim? (Severity: Unknown severity, Onset: Unknown) ?Reactions: Rash metFORMIN? (Severity: Unknown severity, Onset: Unknown) ?Reactions: Diarrhea ? Past Medical History/Problem List Active Problems(8) Graves disease S/P radioactive iodine 2012 HLD (hyperlipidemia) HTN (hypertension) Hypothyroidism NSTEMI (non-ST elevated myocardial infarction) with normal Cath 2004 OA (osteoarthritis) of knee Obese class I Obesity ? Past Surgical History No surgical history ? Social History Alcohol Details:??Use: Current. ??Frequency: 1-2 times per year. Substance Abuse Details:??Use: Current. ??Type: Marijuana. ??Other: weekends . Tobacco Details:??Use: Never (less than 100 in lifetime). Electronic Cigarette/Vaping Details:??Electronic Cigarette Use: Never. Alcohol 1-2 times per month. MJ occasionally. No cigarettes or illicit substances. ?? Family History Mother,??father, and brother with history of ASCVD. Brother with CABG in his 60s. ? Medications Home Medications Acetaminophen-Diphenhydramine (Tylenol PM)?2?By Mouth?Daily at bedtime Amlodipine (Norvasc 10 mg oral tablet)?10?Milligram?1?tablet?By Mouth?Daily?for 90?Days Aspirin (aspirin 81 mg oral tablet, chewable)?81?Milligram?1?tablet?By Mouth?Daily Atorvastatin (atorvastatin 80 mg oral tablet)?1?tab(s)?80?Milligram?By Mouth?Daily at bedtime Durable Medical Equipment (Freestyle Lancets)?See Instructions?for 30?Days?use as directed to check BS twice daily for Type 2 Diabetes Mellitus Durable Medical Equipment (Freestyle Lite Monitor)?See Instructions?for 30?Days?use as directed to check BS twice daily for Type 2 Diabetes Mellitus Durable Medical Equipment (Freestyle Lite Test Strips)?See Instructions?for 30?Days?useas directed to check BS twice daily for Type 2 Diabetes Mellitus Isosorbide Mononitrate (Imdur 30 mg oral tablet, extended release)?90?Milligram?By Mouth?Daily in AM Levothyroxine (levothyroxine 0.088 mg oral tablet)?1?tab(s)?88?Microgram?By Mouth?Daily Meloxicam (meloxicam 15 mg oral tablet)?1?tab(s)?15?Milligram?By Mouth?Daily Metoprolol (metoprolol 50 mg oral tablet)?50?Milligram?1?tablet?By Mouth?2 times a day Miscellaneous Rx (Misc Rx)?THC/Melantonin at bedtime 1 gummie ? Results Recent Labs No labs resulted between 06/19/2024 00:00 and 06/20/2024 23:54? EKG study * Event Display: ECG 12-Lead Authored Date: Please click on pdf link to open report * Event Display: ECG 12-Lead Authored Date: Ventricular Rate: 80 BPM Atrial Rate: 80 BPM P-R Interval: 154 ms QRS Duration: 94 ms Q-T Interval: 402 ms QTC Calculation(Bazett): 463 ms P Badger: 65 degrees R Badger: 47 degrees T Badger: -32 degrees Normal sinus rhythm Possible Left atrial enlargement Inferior infarct (cited on or before 21-Jun-2024) Nonspecific ST abnormality Abnormal ECG When compared with ECG of 21-Jun-2024 06:58, T wave inversion more evident in Inferior leads Confirmed by TIEN HUNT MD ([id number]) on 06/22/2024 7:58:48 AM [place]: TIEN HUNT MD * Event Display: EKG Authored Date: * Event Display: ECG 12-Lead Authored Date: Please click on pdf link to open report * Event Display: ECG 12-Lead Authored Date: Ventricular Rate: 93 BPM Atrial Rate: 93 BPM P-R Interval: 150 ms QRS Duration: 100 ms Q-T Interval: 378 ms QTC Calculation(Bazett): 469 ms P Badger: 68 degrees R Badger: 45 degrees T Badger: 59 degrees Normal sinus rhythm Inferior infarct , age undetermined Abnormal ECG When compared with ECG of 28-Aug-2022 14:12, Inferior infarct is now Present Confirmed by ANGELINE CADET MD ([id number]) on 06/21/2024 9:26:15 AM [place]: ANGELINE CADET MD Heart * Event Display: Echocardiogram - Complete Authored Date: [id number] Transthoracic Echocardiography Report (TTE) Patient Demographics Patient Name YEMI SMITH Date of Study 06/21/2024 Corporate Gender Female Facility Race .[id number] Ethnicity Date of 1960 Height: 64.96 inches Age 64 year(s) Weight: 202.83 pounds Accession Number [id number] BSA: 1.99 m2 Room Number [id number] BMI: 33.79 kg/m2 Referring Pearl Ibarra MD Interpreting Jesi Alonzo MD Physician Physician Fleet Assistant Gris Win [facility] Fellow Shelley Sanchez MD Indications NSTEMI. Clinical History CAD HTN HLD Chest pain Study Data Type of Study TTE procedure:Echo Complete-(Doppler, Colorflow) with Contrast. Procedure Information:Definity was administered by Dixonac Operator . Study Date06/21/2024 Start Time: 07:39 AM Study Location[place] [facility] [place] Status: ICU/CCU Patient Status: Routine Technical Quality: Fair due to body habitus. Blood Pressure:145/103 mmHg EKG: Within normal limits HR: 91 bpm Contrast Medium: Definity. Amount - 2 ml Allergies - Bactrim. - Percocet (Oxycodone). 2D Measurements LV Diastolic Dimension: 4.3 cm LV Systolic Dimension: 2.6 cm LV Septum Diastolic: 0.9 cm LV PW Diastolic: 0.9 cm AO Root Dimension: 2.7 cm LA Dimension: 3.5 cm LA ESV (BP):49.8 ml LVOT Stroke Volume: 73.05 ml LA ESV Index: 25 ml/m2 Stroke Volume Index36.71 ml/m2 LVOT: 2.1 cm Cardiac Index:3.34 l/min/m2 Ascending Aorta:2.6 cm Doppler Measurements AV Peak Velocity: 128 cm/s MV Peak E-Wave: 69 cm/s AV Peak Gradient: 6.55 mmHg MV Peak A-Wave: 121 cm/s MV E/A Ratio: 0.57 LVOT Peak Velocity: 96.8 cm/s MV P1/2t: 69 msec LVOT VTI21.1 cm MV Deceleration Time: 237 msec MV Area (PHT): 3.19 cm2 E' Septal Velocity: 5 cm/s PV Peak Velocity: 114 cm/s E' Lateral Velocity: 6.42 cm/s PV Peak Gradient: 5.2 mmHg E/Med E':13.8 E/Lat E':10.35747 Cardiac Anatomy Left Ventricle/Interventricular Septum The left ventricular size is normal. Left ventricular wall thickness is normal. The LV systolic function is mildly reduced. The left ventricular ejection fraction visually is 40-45 %. Hypokinetic basal and mid inferoseptal and inferior bender. Grade I, mild diastolic dysfunction with impaired LV relaxation. Left Atrium/Interatrial Septum The left atrium is normal in size. Aortic Valve The aortic valve is poorly visualized. There is no significant aortic stenosis or insufficiency. Mitral Valve The mitral valve is normal in structure and function. There is no mitral stenosis or insufficiency. Aorta The ascending aorta and aortic root are normal in size. Right Ventricle The right ventricle is poorly visualized but size and function appears grossly normal. Right Atrium The right atrium is poorly visualized. Pulmonic Valve The pulmonic valve is poorly visualized. The pulmonic valve is functionally normal. Tricuspid Valve The tricuspid valve is poorly visualized. There is no significant tricuspid regurgitation. Pumonary Artery An accurate pulmonary artery pressure could not be obtained. Venous Structures The inferior vena cava appears normal. Inferior vena cava inspiratory collapse is normal . Pericardium/Extracardiac There is a small circumferential pericardial effusion near LV base. There is no evidence of cardiac tamponade. Summary The left ventricular size is normal. Left ventricular wall thickness is normal. The LV systolic function is mildly reduced. The left ventricular ejection fraction visually is 40-45 %. Hypokinetic basal and mid inferoseptal and inferior bender. Grade I, mild diastolic dysfunction with impaired LV relaxation. The aortic valve is poorly visualized. There is no significant aortic stenosis or insufficiency. The right ventricle is poorly visualized but size and function appears grossly normal. There is a small circumferential pericardial effusion near LV base. There is no evidence of cardiac tamponade. Comparison No prior study available for comparison. Signature * Event Display: Echocardiogram - Complete Authored Date: Cardiology * Event Display: Cardiac Rhythm Strips Authored Date: Hospital Progress note * Nereida Butt RN: PERFORM, SIGN, VERIFY Event Display: Progress Note Hospital Authored Date: Patient: YEMI SMITH Age: 64 years Sex: Female : 1960 Associated Diagnoses: None Author: Nereida Butt RN Findings Problem Related to Alteration in Cardiac Function (new) : Alteration in Cardiac Function/new 06/21/2024 23:00 EST Alteration in Cardiac Status Related to ACS, Cardiac Procedure Goals & Outcomes, Cardiac Status Pt will resume/maintain adequate cardiac output, Pt will resume/maintain adequate hemodynamic status, Pt will resume/maintain adequate respiratory function, Pt will resume/maintain intact neuro function, Pt will maintain adequate GI/ function appropriate for pt, Pt will maintain adequate tissue oxygenation/ventilation, Pt will maintain adequate ventilatory support Cardiac Interventions Implemented Assess/monitor cardiac status, Assess/monitor neuro status, Assess/monitor respiratory status, Assess for tolerance of IV infusions; verify rate & dose, Call/Report variances in ECG to provider, Document & Monitor O2 Sats; Administer O2 as ordered, Obtain 12 Lead ECG and CXR as ordered, Teach/encourage deep breath & cough exercises, Use adjunctive ther apies per Standards of Practice, Apply pressure at puncture site if hematoma develops, Assess baseline peripheral pulses, Assess for post procedural discomfort, Assess for post procedural hematoma atsite, Assess procedure site for distal pulses, Pre/post cath guideline Goals/Interventions, Cardiac Yes Cardiac, Problem Start 06/21/2024 5:07 Reviewed Plan with, Cardiac Status Patient Patient Progression, Cardiac Status Patient progressing according to plan . Nursing Data Cardiac Data. : Cardiac Data. 06/21/2024 21:00 EST Cardiovascular Symptoms None Nail Bed Color, Fingers [place] Nail Bed Color, Toes [place] Clubbing Present No Skin Temperature Upper Extremities Warm Skin Temperature Lower Extremities Warm Heart Sounds S1, S2 Heart Rhythm Regular Pacemaker No Monitoring Lead II, V1/MCL1 Cardiac Rhythm Normal sinus rhythm Capillary Refill < 3 seconds Ulnar Pulse, Right Normal Radial Pulse, Left Normal Dorsalis Pedis Pulse, Left Normal Dorsalis Pedis Pulse, Right Normal Edema None AV fistula No . Evaluation Assumed care ~2100 P: Per plan of care I: Intervention per plan of care E: Afebrile, able to make needs known, all questions asked and answered. Patient is A&Ox4, reports no pain overnight. NSR HR 70s-80s, BP WNL overnight. TR band removed per protocol, DSD applied, +CMS RUE. Post-cath fluids administered per orders. Patient tolerating room air without issues. See biophysical for assessment, interactive worksheet for I&O, VS, see all results for labs & tests. See CIS for further details. . * Panda CABELLO, Jama: MODIFY, PERFORM Event Display: Progress Note Hospital Authored Date: Patient: ??EFFORD, YEMI ? Age:??64 Years?Sex:??Female?:??1960?? Subjective Overnight Events:?? Patient admitted??transferred from [facility]??for??NSTEMI Ventilation:??Room Air ?? Drips: Heparin ?? Vitals:??Afebrile??hypertensive??tachycardic,??Saturating well on room air. ? I&O:??+84 cc ?? Labs/Micro: Troponin 1826, uptrending??To 2354,??A1c 6, TSH 0.31, free T4 1.81 ?? Interval Updates?? Patient hypertensive this morning,??started on losartan overnight however??was concerned as she does not take this medication at home. Home metoprolol??50??mg p.o. started, amlodipine started?? Patient reports that??her first??cardiac cath was in [facility] at [facility]in [place] Plans to go to [facility] Patient denies any??chest pain, shortness of breath, dizziness, nausea/vomiting,, neck pain. Allergies Allergies ?(Active and Proposed Allergies Only) Percocet 7.5/325? (Severity: Unknown severity, Onset: Unknown) ?Reactions: Vomiting Bactrim? (Severity: Unknown severity, Onset: Unknown) ?Reactions: Rash metFORMIN? (Severity: Unknown severity, Onset: Unknown) ?Reactions: Diarrhea ? Past Medical History Active Problems(8) Graves disease S/P radioactive iodine 2012 HLD (hyperlipidemia) HTN (hypertension) Hypothyroidism NSTEMI (non-ST elevated myocardial infarction) with normal Cath 2004 OA (osteoarthritis) of knee Obese class I Obesity ? Past Surgical History No surgical history ? Objective Measurements?? Height: 165 cm (06/21/24) Weight: 92.3 kg (06/21/24) Dry Weight: 95.9 kg (06/21/24) Body Mass Index:??33.9 kg/m2??Critical (06/21/24) ? Vital Signs?? Temperature: 98.1 DegF (06/21/24 12:00:00) Temperature Route: Oral (06/21/24 12:00:00) Pulse Rate: 85 bpm (06/21/24 11:16:00) Heart Rate Monitored: 79 bpm (06/21/24 15:00:25) Respiratory Rate:??13 br/min??Low (06/21/24 15:00:25) Systolic Blood Pressure:??152 mm Hg??High (06/21/24 15:00:00) Diastolic Blood Pressure: 83 mm Hg (06/21/24 15:00:00) Blood pressure sites: Arm, right (06/21/24 15:00:00) Mean Arterial Pressure: 107 mm Hg (06/21/24 04:13:00) Pulse Pressure: 69 mm Hg (06/21/24 15:00:00) Oxygen Saturation:??93 %??Low (06/21/24 15:00:25) Mode of Delivery (Oxygen): Room air (06/21/24 15:00:00) ? Pain Scores?? No qualifying data available. ? Ventilator Settings?? No qualifying data available. ?? Intake/Output? 06/21 04:09 06/21 07:00 06/20 07:00 06/19 07:00 06/18 07:00 ?? 06/21 16:11 06/21 16:11 06/21 06:59 06/20 06:59 06/19 06:59 Intake ? 84.4 ? 84.4 ?0 ?0 ?0 Output ?0 ?0 ?0 ?0 ?0 Net Total ? 84.4 ? 84.4 ?0 ?0 ?0 ? Urine Count ?4 ?4 ?0 ?0 ?0 ? [place] Coma Scale [place] Coma Score: 15 (06/21/24 12:00:00) Motor Response-Adult: Obeys commands (06/21/24 12:00:00) Response Eye Opening: Spontaneously (06/21/24 12:00:00) Verbal Response-Adult: Oriented and converses (06/21/24 12:00:00) ? Physical Exam Constitutional: Alert, in no distress. Mental Status: Oriented to person, place and time. Respiratory: Clear to auscultation. No wheezing, rales or rhonchi. Cardiovascular: S1 S2 regular. No murmurs, rubs or gallops. Neurologic: No focal neurological deficits. Moves all extremities spontaneously. Musculoskeletal: No gross deformities. Psychiatric: Normal mood and affect _ Home Medications Acetaminophen-Diphenhydramine (Tylenol PM)?2?By Mouth?Daily at bedtime Amlodipine (Norvasc 10 mg oral tablet)?10?Milligram?1?tablet?By Mouth?Daily?for 90?Days Aspirin (aspirin 81 mg oral tablet, chewable)?tablet?81?Milligram?1?By Mouth?Daily Atorvastatin (atorvastatin 80 mg oral tablet)?1?tab(s)?80?Milligram?By Mouth?Daily at bedtime Durable Medical Equipment (Freestyle Lancets)?See Instructions?for 30?Days?use as directed to check BS twice daily for Type 2 Diabetes Mellitus Durable Medical Equipment (Freestyle Lite Monitor)?See Instructions?for 30?Days?use as directed to check BS twice daily for Type 2 Diabetes Mellitus Durable Medical Equipment (Freestyle Lite Test Strips)?See Instructions?for 30?Days?useas directed to check BS twice daily for Type 2 Diabetes Mellitus Isosorbide Mononitrate (Imdur 30 mg oral tablet, extended release)?Daily in AM?90?Milligram?By Mouth Levothyroxine (levothyroxine 0.088 mg oral tablet)?1?tab(s)?88?Microgram?By Mouth?Daily Meloxicam (meloxicam 15 mg oral tablet)?Daily?1?tab(s)?15?Milligram?By Mouth Metoprolol (metoprolol 50 mg oral tablet)?tablet?50?Milligram?1?By Mouth?2 times a day Miscellaneous Rx (Misc Rx)?THC/Melantonin at bedtime 1 gummie ? Inpatient Medications Medications (16) Active SCHEDULED: (7) Amlodipine 10 mg Tablet (Norvasc 10 mg oral tablet) ??10 mg, By Mouth, Daily Aspirin 81 mg EC Tablet (aspirin 81 mg oral delayed release tablet) ??81 mg, By Mouth, Daily Atorvastatin 80 mg Tablet (atorvastatin 80 mg oral tablet) ??80 mg, By Mouth, Daily Levothyroxine 75 mcg Tablet (levothyroxine 0.075 mg oral tablet) ??75 mcg, By Mouth, Daily Losartan 25 mg Tablet (losartan 25 mg oral tablet) ??25 mg, By Mouth, Daily Metoprolol 50 mg Tablet (metoprolol 50 mg oral tablet) ??50 mg, By Mouth, 2 times a day NaCl 0.9% Flush 3ml (NaCL 0.9% Flush) ??3 mL, IV Push, Every 8 hours CONTINUOUS: (2) Heparin 25,000 units / 250 mL D5W premix 25,000 units [10 units/kg/hr] + D5%W Premixed IV 250 mL (Heparin 25,000 units in 250 mL Premix 25,000 units [10 units/kg/hr] + D5%W Premixed IV 250 mL) ??250 mL, IV Infusion, 9.59 mL/hr NaCL 0.9% (1000 mL) Cont IV 287.7 mL (NaCL 0.9% Bolus 287.7 mL) ??287.7 mL, IV Infusion PRN: (7) Aspirin 81 mg Chew Tablet (Aspirin Chew Tablet) ??324 mg, Chew, Once Heparin 5000 units/mL Inj (1 mL) (Heparin Inj) ??6,000 units 1.2 mL, IV Push, Every 6 hours Heparin 5000 units/mL Inj (1 mL) (Heparin Inj) ??3,000 units 0.6 mL, IV Push, Every 6 hours NaCl 0.9% Flush 3ml (NaCL 0.9% Flush) ??3 mL, IV Push, Every 8 hours Nitroglycerin 2% Oint UD (Nitroglycerin 2% Topical) ??2 inches, Topically, Every 4 hours Polyethylene Glycol 17 Gm Powder (MiraLax Powder) ??17 Gm 1 pack/packet, By Mouth, Daily Senna Tablet (Senna 8.6 mg oral tablet) ??8.6 mg 1 tablet, By Mouth, Daily ? IV Titrations (Last 24 hrs) Most Recent Infusions (Max of 3)? 06/21 15:00 06/21 14:00 06/21 13:00 Heparin 25,000 units in 250 mL Premix 25,000 units [10 units/kg/hr] + D5%W Premixed IV 250 mL 14 units/kg/hr 14 units/kg/hr 14 units/kg/hr ? Results Recent Labs BLOOD COUNT & DIFF WBC 10.4 k/mm3 ()?? 06/21/2024 05:46 RBC 5.21 m/mm3 ()?? 06/21/2024 05:46 Hgb 15.3 Gm/dL ()?? 06/21/2024 05:46 Hct 44.6 % ()?? 06/21/2024 05:46 MCV 85.6 femtoliters ()?? 06/21/2024 05:46 MCH 29.4 pg ()?? 06/21/2024 05:46 MCHC 34.3 Gm/dL ()?? 06/21/2024 05:46 Platelet Count 318 k/mm3 ()?? 06/21/2024 05:46 RDW-SD 42.4 femtoliters ()?? 06/21/2024 05:46 MPV 11.1 femtoliters ()?? 06/21/2024 05:46 Nucleated RBC (Automated) 0.0 #/100 WBC'S ()?? 06/21/2024 05:46 Abs. NRBC 0.0 k/mm3 ()?? 06/21/2024 05:46 ?? CARDIAC High Sensitivity Troponin (HSTnT) 2354 ng/L (Critical)?? 06/21/2024 12:03 ?? CHEM GENERAL Sodium 137 mmol/L ()?? 06/21/2024 05:46 Potassium 4.0 mmol/L ()?? 06/21/2024 05:46 Chloride 100 mmol/L ()?? 06/21/2024 05:46 Bicarbonate Level 21 mmol/L (Low)?? 06/21/2024 05:46 Anion Gap 16 mmol/L ()?? 06/21/2024 05:46 Glucose Level 161 mg/dL (High)?? 06/21/2024 05:46 Glucose, POC 156 mg/dL (High)?? 06/21/2024 04:23 Hemoglobin A1C (Monitoring) 6.0 % (High)?? 06/21/2024 05:46 BUN 13 mg/dL ()?? 06/21/2024 05:46 Creatinine-Blood 0.54 mg/dL ()?? 06/21/2024 05:46 Estimated GFR Creatinine 104 ML/MIN/1.73 M2 ()?? 06/21/2024 05:46 Calcium 9.8 mg/dL ()?? 06/21/2024 05:46 Magnesium 2.1 mg/dL ()?? 06/21/2024 05:46 ?? COAG APTT 30.8 seconds ()?? 06/21/2024 12:03 ?? ENDOCRINE/TUMOR MARKER TSH 0.31 uIU/mL (Low)?? 06/21/2024 05:46 Free T4 1.81 ng/dL (High)?? 06/21/2024 05:46 ?? LIPID STUDIES Cholesterol 140 mg/dL ()?? 06/21/2024 05:46 Triglycerides 84 mg/dL ()?? 06/21/2024 05:46 HDL Cholesterol 60 mg/dL ()?? 06/21/2024 05:46 LDL Cholesterol 63 mg/dL ()?? 06/21/2024 05:46 Non HDL Cholesterol 80 mg/dL ()?? 06/21/2024 05:46 ?? URINE OTHER Est Creatinine Clearance 97.04 mL/min ()?? 06/21/2024 06:49 ?? VIROLOGY COVID-19 PCR Result NEGATIVE ()?? 06/21/2024 06:00 ? Assessment/Plan ? Diagnoses NSTEMI (non-ST elevated myocardial infarction) ??(I21.4) ?? Assessment:??64-year-old female with history of multivessel CAD s/p 2x PCI (LORIE to LAD and LCx 2016; LORIE to RCA 2020), T2DM, HTN, HLD, Graves disease s/p ablation, and obesity admitted as a transfer from [facility] for chest pain,??found to have NSTEMI.??Plans for cardiac catheterization on 06/21. ? Cardiovascular NSTEMI Multivessel CAD s/p 2x PCI (LORIE to LAD, LCx, RCA) HTN?? HLD?? Chest pain x1 day with elevated troponin.?? Q waves, T wave, seen on EKG and leads II to III and aVF concerning for RCA stent restenosis given that patient previously had LORIE placed in RCA in 2020?? Patient's troponin levels continue to trend upwards however she remains chest pain-free??and her blood pressure is??well-controlled on??her home medications??that were started this morning. ?? For reference,??Cardiac cath report from 10/18/2020, Dr. Dee: Diagnostic Summary Culprit of non-STEMI: 90% distal RCA stenosis, likely plaque rupture. Otherwise moderate CAD in RCA. Stents in LAD and LCx are patent. No obstructive CAD in LAD or LCx. ? Plan: -Plan for cath 06/21 -Continue heparin drip -ASA 81 mg daily -Continue home atorvastatin 80 mg -Start losartan 25 mg -Echo ordered -ECG and NTG paste prn for chest pain -Hold home metoprolol and amlodipine -LFTs, HbA1c, TFTs Plan: ?- Afterload:??Amlodipine??Home med??started this morning, Imdur??held ?- Pump:??Home metoprolol started ?- Coronaries:??ASA, atorvastatin 80,??plans for cardiac cath today ?- Rhythm:??Sinus rhythm ?- Valves:??No history of valvular abnormalities ?- 1st pressman ?- EKG PRN ? Endocrine Type 2 DM H/o Graves disease with post-ablative hypothyroidism Only medication is Ozempic for weight loss, no other DM related meds.?Diabetes very well-controlled patient's A1c is 6 On patient's??thyroid studies it appears the patient is??in a hyperthyroid state.?Therefore willreduce patient's??levothyroxine Plan: -Levothyroxine 75 mcg daily -Hold home diabetes regimen -Patient type II diabetic and currently n.p.o., post-cath and once patient starts eating we will add sliding scale and hypoglycemia measures ?? Neuro/HEENT No acute issues ?? Pulmonary No acute issues patient saturating well on room air ?? Gastroenterology Patient reports that she has not had a bowel movement in a few days.??As needed bowel regimen started ?? Renal No acute concerns?? Plan: ?- Monitor I/O ?- Daily BMP ?- Avoid nephrotoxins ?? Heme/Onc No acute concerns?? Plan: ?- Monitor CBC ? Infectious Disease No concerns for infection given no leukocytosis, fevers, or??source of infection.?? Plan: ?? Quality Measures: Diet:??NPO DVT prophylaxis:??Heparin drip Code Status:??FULL CODE ?? Patient seen and discussed with attending physician Dr. Brenda Mosqueda MD Internal Medicine, PGY1 ?? * Jim Gutierrez MD: PERFORM Event Display: Progress Note Hospital Authored Date: Pt seen and evaluated personally on the date of service and discussed with HOs in detail. Agree with above assessment and plan. 64 yo man with known CAD presents with ACS, inferior ST abnormality, and elevated troponin. Awaiting catheterization and revascularization. Continue antiplatelet and antiischemic regimen. * Chioma Coleman RN: PERFORM, MODIFY, SIGN, VERIFY Event Display: Progress Note Hospital Authored Date: Patient: YEMI SMITH Age: 64 years Sex: Female : 1960 Associated Diagnoses: None Author: Chioma Coleman RN Findings Problem Related to Alteration in Cardiac Function (new) : Alteration in Cardiac Function/new 06/21/2024 13:00 EST Alteration in Cardiac Status Related to ACS, Other: NSTEMI awaiting cardiac cath Goals & Outcomes, Cardiac Status Pt will resume/maintain adequate cardiac output, Pt will resume/maintain adequate hemodynamic status, Pt will resume/maintain adequate respiratory function, Pt will resume/maintain intact neuro function, Pt will maintain adequate GI/ function appropriate for pt, Pt will maintain adequate tissue oxygenation/ventilation, Pt will maintain adequate ventilatory support Cardiac Interventions Implemented Assess/monitor cardiac status, Assess/monitor neuro status, Assess/monitor respiratory status, Assess for tolerance of IV infusions; verify rate & dose, Monitor anticoagulation values, Monitor ECG w/administration of antiarrhythmics (CO 13.420), Obtain 12 Lead ECG and CXR as ordered (Modified) Goals/Interventions, Cardiac Yes Cardiac, Problem Start 06/21/2024 5:07 Reviewed Plan with, Cardiac Status Patient (Modified) Patient Progression, Cardiac Status Patient progressing according to plan . Alteration in Comfort : Alteration in Comfort/new 06/21/2024 13:00 EST Alteration in Comfort Related to Disease process Goals & Outcomes: Comfort Pt will report acceptable level of comfort & pain control, Pt will state importance of adhering to pain strategy regime, Pt will demonstrate necessary skills to manage pain Interventions Implemented: Comfort Assess pain using appropriate pain scale/tools, Assess aggravating factors & prevent them accordingly, Assess alleviating factors & promote them accordingly Goals/Interventions, Comfort Yes Comfort, Problem Start 06/21/2024 5:07 Reviewed plan with, Comfort Patient (Modified) Patient Progression, Comfort Pt progressing according to plan Comfort, Problem Ongoing Yes . Alteration in Integumentary : Alteration in Integumentary/new 06/21/2024 13:00 EST Alteration in Integumentary Related to Immobility Goals & Outcomes, Integumentary Nutritional intake is adequate for metabolic needs, Pt will maintain adequate fluid & nutritional balance, Pt will maintain intact skin integrity Interventions, Integumentary Encourage & assist pt to change position frequently, Encourage & assist with range of motion exercises, Encourage family participation in pt's care as they are able, Ensure relief modes are on mattress surface & utilized, Increase turning frequency if red orblanched areas appear, Keep linen clean, dry and wrinkle free, Keep skin clean & dry, Maintain sterile technique with dressing changes, Minimize friction, shear and moisture, Monitor reddened areas for continued or increasing reddness, Record extent of impaired skin integrity, Relieve pressure off bony areas, Reposition pt off reddened areas Goals/Interventions, Integumentary Yes Integumentary, Problem Start 06/21/2024 5:07 Reviewed plan with, Integumentary Patient (Modified) Patient Progression, Integumentary Resolved problem (Modified) Integumentary, Problem Resolved 06/21/2024 13:36 . Evaluation P: Alt in cardiac function I: See ncp for details E: Pt admitted to [facility] for NSTEMI. Pt remains on heparin gtt, PTT sent and gtt titrated and rebolused as per heparin gtt order/protocol. Pt denies any chest pain thus far into the shift. Nitropaste applied by security shift supervisor RN remains in place. Palpable pulses, no edema, afebrile. Awaiting cardiac cath. See iview for further assessment details. P: Alt in comfort I: See ncp for details E: Pt denies any chest pain thus far into the shift. Able to turn/repo self in bed. Able to get OOBto use bathroom. See iview for further assessment details. P: Alt in integ I: See ncp for details E: Problem resolved. No active integ issues. See iview for further assessment details. \ Pt transported to catheter builder at 1730.. Patient Care team information Care Team Personnel Name: Lurdes Mae RN Position: S RN Member Role: Primary Care Nurse Name: Lorena Archer MD Position: Reference Physician Member Role: PCP Address: [address] [place] [address]- Telecom: Care Team Related Persons Name: JIA SMITH Name: DEBRA HOYT Name: BEENA HOYT Insurance Providers Guarantor name: YEMI PATTERSONSUZANNE Health Plan Information #: 3 Payer: S[employer]ANCE Member Number: [id number] Policy Number: NA Group Number: NA Health Plan Information #: 2 Payer: [facility] [employer] Member Number: [id number] Policy Number: NUPUR Group Number: [id number] Health Plan Information #: 1 Payer: [facility] Member Number: [id number] Policy Number: NUPUR Group Number: [id number]
[2024-06-25 22:17] VITALS: BP 147/68; PULSE 93; RESP 20; TEMP 36.3; O2SAT 98
[2024-06-25 22:39] LABS: MANUAL DIFF FLAG NO
[2024-06-25 22:41] LABS: Basophils Absolute Auto 0.1 X10*3/uL (0.0-0.2); Basophils Percent Auto 0.4 % (0-2); Eosinophils Absolute Auto 0.4 X10*3/uL (0.0-0.4); Eosinophils Percent Auto 3.2 % (0-4); Hematocrit 41.3 % (37.0-47.0); Hemoglobin 14.2 g/dl (12.0-16.0); Imm Gran Abs Auto 0.04 X10*3/uL (0.00-0.03); Imm Gran Pct Auto 0.3 % (0.0-0.4); Lymphocytes Absolute Auto 2.5 X10*3/uL (1.2-4.9); Lymphocytes Percent Auto 21.9 % (20-40); Mean Corpuscular HGB Conc 34.4 g/dl (31.0-35.0); Mean Corpuscular Hemoglobin 29.8 pg (27.0-33.0); Mean Corpuscular Volume 86.6 fL (80.0-98.0); Mean Platelet Volume 10.9 fL (9.4-12.3); Monocytes Absolute Auto 0.8 X10*3/uL (0.1-1.2); Monocytes Percent Auto 6.7 % (2-11); Neutrophils Absolute Auto 7.8 x10*3/uL (2.0-8.3); Neutrophils Percent Auto 67.5 % (45-73); Platelet Count 275 X10*3/uL (160-400); Red Blood Count 4.77 X10*6/uL (4.20-5.50); White Blood Count 11.5 X10*3/uL (4.8-10.8)
--- NOTE | 2024-06-25 22:46 | ED_ITS ---
HPI - Chest Pain General Chief Complaint: Chest Pain Stated Complaint: Chest pain-cardiac stent 06/21 Time Seen by Provider: 06/25/24 22:05 Source: patient and EMS Mode of arrival: EMS Limitations: no limitations History of Present Illness ED Provider: leatha ortiz NP HPI narrative: Patient is a 64-year-old female with past medical history of type 2 diabetes, hypertension, ASCVD, hypoparathyroidism, hypothyroidism, history of myocardial infarction; most recently NSTEMI 06/20/2024 for which she was transferred to [facility] in reportedly had stenting of the distal RCA LVEF 40-45% reporting her Imdur was discontinued she was started on losartan and Brilinta in was continued on amlodipine, metoprolol, low-dose aspirin, and atorvastatin., admits to 3 prior AR; 2005 without stenting, 2016 LORIE to LAD and LCX, LORIE to RCA in 2020. She presents emergency department for evaluation reporting the all day she has felt at times like she is unable to take a deep breath she finds herself stopping try to take a deep breath but does not feel it is sufficient though she denies shortness of breath or dyspnea. She endorses a ?nagging? pain to the subxiphoid/epigastric region, states earlier today she felt that a little bit higher in her chest. It is nonradiating, denies diaphoresis, nausea, vomiting, worsening on exertion. Denies recent URI symptoms. Related Data Home Medications ?Medication ?Instructions ?Recorded ?Confirmed aspirin 81 mg tablet,delayed 81 mg PO DAILY 10/30/20 06/26/24 release (Adult Low Dose Aspirin) gabapentin 300 mg capsule 300 mg PO TID PRN nerve pain 03/16/24 06/26/24 atorvastatin 80 mg tablet 80 mg PO BEDTIME 06/26/24 06/26/24 levothyroxine 88 mcg tablet 88 mcg PO DAILY@0600 06/26/24 06/26/24 linagliptin 5 mg tablet (Tradjenta) 5 mg PO DAILY 06/26/24 06/26/24 losartan 25 mg tablet 25 mg PO DAILY 06/26/24 06/26/24 metoprolol succinate 100 mg 100 mg PO DAILY 06/26/24 06/26/24 tablet,extended release 24 hr ticagrelor 90 mg tablet (Brilinta) 90 mg PO BID 06/26/24 06/26/24 Previous Rx's ?Medication ?Instructions ?Recorded lorazepam 0.5 mg tablet (Ativan) 0.5 mg PO BID PRN anxiety 2 days 10/13/23 #4 tabs amlodipine 10 mg tablet 10 mg PO DAILY #30 caps 04/19/24 colchicine 0.6 mg tablet (Colcrys) 0.6 mg PO DAILY #30 tabs 06/26/24 Allergies Allergy/AdvReac Type Severity Reaction Status Date / Time oxycodone [From PERCOCET] Allergy Intermediate N/V Verified 06/25/24 21:43 Sulfa (Sulfonamide Allergy Intermediate UNK, rash Verified 06/25/24 21:43 Antibiotics) [SULFA (SULFONAMIDE ANTIBIOTICS)] metformin AdvReac Severe diarrhea Verified 06/25/24 21:43 Review of Systems 2 Review of Systems: Yes all other systems are reviewed and are negative [facility] Past Medical History Attestation statement: The following information was validated with the patient. Source: old records reviewed Medical History NSTEMI (non-ST elevated myocardial infarction) Type 2 diabetes mellitus with hyperglycemia Hidradenitis suppurativa Lower back pain Pain, joint, knee, right Right knee pain Suppurative hidradenitis SADIQ positive Morbid obesity with BMI of 40.0-44.9, adult Breast lesion Abscess Diabetes mellitus Hypothyroidism Essential hypertension 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 STEMI (ST elevation myocardial infarction) Surgical History Hx of meniscectomy of right knee H/O cardiac catheterization Family History Family History Mother Hypertension Father Heart disease Sister Ovarian cancer, Onset Age: 41 Breast cancer Maternal Grandmother Diabetes Other Mental health disorder Substance use disorder Social History Social History Household Members: [facility] Alcohol intake: current Alcohol intake frequency: holidays/special occasions only Alcohol type: wine Patient Tobacco Use Status: Former Tobacco user Tobacco use type: Cigarette e-Cigarette/Vaping Use: Never Used Second Hand Smoke Exposure: No Substance Use Type: Marijuana service: No Current occupational status: employed Current occupation: E[employer] Current occupational exposures/hazards: No Cognitive needs: Yes Hearing needs: No Vision needs: No Physical Exam 2 Vital Signs: Vital Signs: Last Vital Signs Temp 97.4 F 06/26/24 11:11 Pulse 79 06/26/24 11:11 Resp 16 06/26/24 11:11 BP 130/65 06/26/24 11:11 Pulse Ox 97 06/26/24 11:11 O2 Del Method Room Air 06/26/24 11:11 BMI result Body Mass Index 33.8 Appearance: Alert.?Oriented to person, place and time. No acute distress.?Normal affect. Eyes: Pupils equal, round and reactive to light.? ENT: Pharynx normal.?? Neck: Normal inspection.? Neck supple.??No JVD. CVS: Heart sounds normal. Normal heart rate and rhythm.? Pulses normal.?? Respiratory: No respiratory distress.? Lung sounds clear to auscultation bilaterally?? Abdomen: Soft and non-tender. Normoactive bowel sounds. No pulsatile mass.?? Skin: Skin warm and dry.? Normal skin color.? ?? Extremities: No lower extremity edema.? No calf ttp? Neuro: Moves all extremities spontaneously. Sensation intact bilaterally. CN II- XII intact. No focal neuro deficits. Ambulates with normal steady gait. Course Reevaluation(s) Reevaluation #1: Critical troponin 1384.7, though of note this is downtrending when compared to prior 06/21/2024 of 32,270, EKG does not have evidence of acute ST elevation or acute ischemic changes, does not appear consistent with stent failure, pain may be secondary to mild pericarditis consulted with Cardiology, Dr. Tracey who advises admission for observation and he will evaluate patient in the morning, I discussed with him low-dose ibuprofen over the next few days although she is taking aspirin and Brilinta, he recommends only a single dose ibuprofen at this time. Time: 23:08 Medications Administered Generic Name Dose Route Start Last Admin Trade Name Freq PRN Reason Stop Dose Admin Amlodipine Besylate 10 mg 06/26/24 10:45 06/26/24 11:06 Amlodipine Besylate 10 Mg Tablet PO 10 mg DAILY JERMAINE Administration Protocol Aspirin 81 mg 06/26/24 12:45 06/26/24 13:20 Aspirin 81 Mg Tab.Chew PO 81 mg DAILY [facility] Administration Enoxaparin Sodium 40 mg 06/26/24 09:00 06/26/24 08:05 Enoxaparin Sodium 40 Mg/0.4 Ml Syringe SUBCUT Not Given DAILY [facility] Insulin Human Lispro 0 unit 06/26/24 07:30 06/26/24 11:18 Insulin Lispro 100 Unit/Ml 3 Ml Vial SUBCUT Not Given QIDACHS [facility] Protocol Losartan Potassium 25 mg 06/26/24 10:45 06/26/24 11:06 Losartan Potassium 25 Mg Tablet PO 25 mg DAILY [facility] Administration Protocol Metoprolol Succinate 100 mg 06/26/24 10:45 06/26/24 11:06 Metoprolol Succinate Er 100 Mg Tab.Er.24h PO 100 mg DAILY [facility] Administration Protocol Omeprazole 20 mg 06/26/24 01:10 06/26/24 06:06 Omeprazole 20 Mg Capsule. PO 20 mg DAILY@0630 [facility] Administration Sodium Chloride 3 ml 06/26/24 08:00 06/26/24 09:43 0.9 % Sodium Chloride Flush 3 Ml Syringe IVFLUSH Not Given QSHIFT [facility] Ticagrelor 90 mg 06/26/24 12:45 06/26/24 13:15 Ticagrelor 90 Mg Tablet PO Not Given BID [facility] Discontinued Medications Generic Name Dose Route Start Last Admin Trade Name Freq PRN Reason Stop Dose Admin Aspirin 81 mg 06/26/24 09:00 06/26/24 07:55 Aspirin Enteric Coated 81 Mg Tablet. PO 81 mg DAILY [facility] Administration Aspirin 81 mg 06/26/24 10:45 06/26/24 11:18 Aspirin Enteric Coated 81 Mg Tablet. PO Not Given DAILY [facility] Colchicine 1.2 mg 06/26/24 12:41 06/26/24 13:20 Colchicine 0.6 Mg Tablet PO 06/26/24 12:42 1.2 mg ONCE ONE Administration Ibuprofen 400 mg 06/25/24 23:22 06/26/24 00:20 Ibuprofen 400 Mg Tablet PO 06/25/24 23:23 400 mg ONCE ONE Administration Levothyroxine Sodium 88 mcg 06/26/24 06:00 06/26/24 06:06 Levothyroxine Sodium 88 Mcg Tablet PO 88 mcg DAILY@0600 [facility] Administration Nitroglycerin 0.4 mg 06/25/24 22:49 06/26/24 00:20 Nitroglycerin 0.4 Mg Tab.Subl SUBLINGUAL 06/25/24 22:50 Not Given ONCE ONE Non-Formulary Medication 5 mg 06/26/24 10:45 06/26/24 11:18 Linagliptin [Tradjenta] PO Not Given DAILY JERMAINE Ticagrelor 90 mg 06/26/24 01:10 06/26/24 07:56 Ticagrelor 90 Mg Tablet PO 90 mg BID JERMAINE Administration Ticagrelor 90 mg 06/26/24 10:45 06/26/24 11:18 Ticagrelor 90 Mg Tablet PO Not Given BID [facility] Medical Decision Making Medical Decision Making [facility] Narrative: Patient is a 64-year-old female with past medical history of type 2 diabetes, hypertension, ASCVD, hypoparathyroidism, hypothyroidism, history of myocardial infarction; 2005 without stenting, 2016 LORIE to LAD and LCX, LORIE to RCA in 2020, most recently NSTEMI 06/20/2024 for which she was transferred to [facility] in reportedly had stenting of the distal RCA, LVEF 40-45%, Imdur was discontinued she was started on losartan and Brilinta in was continued on amlodipine, metoprolol, low-dose aspirin, and atorvastatin. who presents to the emergency department for evaluation with complaint of subxiphoid/epigastric pain as per HPI in sensation of feeling unable to take a deep breath without overt shortness of breath. On review of initial EKG as indicates a normal sinus rhythm with ventricular rate of 86, QTC 442, Q-wave present in lead II, III, aVF with T-wave inversion, no ST elevation, changes would be consistent with recent RCA occlusion. Clinically is without evidence of volume overload or shock on exam. LS CTA, speaking clear full sentences no tachypnea or hypoxia, no associated URI symptoms. No associated nausea vomiting right upper quadrant pain just few cholecystitis or cholelithiasis no fever ground to suggest acute cholangitis. Denies as reflux no significant tenderness over power patient of the epigastrium to suggest gastritis. Overall, ACS is being considered given higher risk features, Will obtain CBC to evaluate for leukocytosis/ anemia, CMP and lipase to evaluate for abnormal electrolytes /abnormal renal function/ abnormal hepatic/biliary function, troponin to evaluate for ischemia/ACS. Chest x-ray to evaluate for consolidation/ infiltrate/ mass/ pulmonary congestion, ASA, pain control and reassessment Differential Diagnosis Differential Diagnoses: The differential diagnosis associated with the presentation includes (See narrative above) Admission/Observation Consideration of admission/observation: Escalation of care including admission/observation considered (See narrative above and course narrative for further detail) Consult Healthcare Provider Management of the patient was discussed with: Hospitalist (See course narrative) and Human Services Assistant (See course narrative) Lab Data MDM Lab Attestation statement: I reviewed the patient's lab results. 06/25/24 22:32 06/26/24 04:24 Labs: Lab Results 06/25/24 Range/Units 22:32 WBC 11.5 H (4.8-10.8) X10*3/uL RBC 4.77 (4.20-5.50) X10*6/uL Hgb 14.2 (12.0-16.0) g/dl Hct 41.3 (37.0-47.0) % MCV 86.6 (80.0-98.0) fL MCH 29.8 (27.0-33.0) pg MCHC 34.4 (31.0-35.0) g/dl RDW 14.0 (11.0-16.0) % Plt Count 275 (160-400) X10*3/uL MPV 10.9 (9.4-12.3) fL Immature Gran % (Auto) 0.3 (0.0-0.4) % Neut % (Auto) 67.5 (45-73) % Lymph % (Auto) 21.9 (20-40) % [place] % (Auto) 6.7 (2-11) % Eos % (Auto) 3.2 (0-4) % Baso % (Auto) 0.4 (0-2) % Lymph # (Auto) 2.5 (1.2-4.9) X10*3/uL [place] # (Auto) 0.8 (0.1-1.2) X10*3/uL Eos # (Auto) 0.4 (0.0-0.4) X10*3/uL Baso # (Auto) 0.1 (0.0-0.2) X10*3/uL Abs Immat Gran (auto) 0.04 H (0.00-0.03) X10*3/uL Absolute Neuts (auto) 7.8 (2.0-8.3) x10*3/uL Absolute Nucleated RBC 0.000 (0.0-0.012) X10*3/uL Nucleated RBC % (auto) 0.0 (0.0-0.2) /100WBC Sodium 140 (135-145) mmol/L Potassium 4.0 (3.3-5.1) mmol/L Chloride 110 H (96-108) mmol/L Carbon Dioxide 20 L (22-29) mmol/L Anion Gap 14 (12-20) BUN 20 H (9-16) mg/dL Creatinine 0.69 (0.5-1.4) mg/dL Estim Creat Clear Calc 94.8 Estimated GFR > 60 Random Glucose 124 H (60-115) mg/dL Calcium 9.0 D (8.4-10.2) mg/dL Total Bilirubin 0.5 (0.0-1.0) mg/dL AST 24 (5-31) U/L ALT 22 (0-31) U/L Alkaline Phosphatase 96 (39-117) U/L Troponin I High Sens 1384.7 H* D (<3.5-17.0) ng/L B-Natriuretic Peptide 77 (<100) pg/mL Total Protein 7.2 (6.5-8.0) g/dL Albumin 3.8 (3.5-5.0) g/dL Independent Interpretation I performed an independent interpretation of an: EKG (See narrative above) and Plain X-Ray (No consolidation or infiltrate) Radiology Impression Discussion of test interpretation with radiology: I have reviewed the radiologist's reading. Radiologist Impression: 2 view chest x-ray Comparison: CR - XR CHEST 1V - 06/20/24 19:53 EST Findings: The lungs are clear. Heart size is normal. No acute fracture. IMPRESSION: 1. No acute findings. External Record Review External record reviewed: Inpatient record (Reviewed records from [facility], see narrative above for further detail) and Outpatient record Chronic Conditions Patient?s care impacted by: Other (See narrative above) Discharge Plan Discharge Clinical Impression: Chest pain, Elevated troponin Patient Disposition: Admitted As Inpatient Interventions: Admission Worksheet (ED) Last Done: 06/26/24 08:59 Discharge Date/Time: 06/26/24 09:36
[2024-06-25 22:54] LABS: Alanine Aminotransferase 22 U/L (0-31); Albumin Level 3.8 g/dL (3.5-5.0); Alkaline Phosphatase 96 U/L (39-117); Anion Gap 14 (12-20); Aspartate Amino Transferase 24 U/L (5-31); Bilirubin Total 0.5 mg/dL (0.0-1.0); Blood Urea Nitrogen 20 mg/dL (9-16); Carbon Dioxide 20 mmol/L (22-29); Chloride 110 mmol/L (96-108); Creatinine Clr Calc Pharmacy 94.8; Estimated Glomerular Filt Rate > 60; Glucose Random 124 mg/dL (60-115); Sodium 140 mmol/L (135-145); Total Protein 7.2 g/dL (6.5-8.0)
[2024-06-25 23:05] LABS: Troponin-I High Sensitivity 1384.7 ng/L (<3.5-17.0)
[2024-06-25 23:24] LABS: B Type Natriuretic Peptide 77 pg/mL (<100)
--- NOTE | 2024-06-25 23:51 | PM.IMHP ---
History of Present Illness Date of Service: 06/26/24 Chief Complaint: Chest heaviness, SOB A 64 yeats old lady with PMH of CAD , DMII, HYN, Hypothyroid among others with hx of multiple coronary stenting in 2016,2020 and last NSTEMI on 06/20/2024 when she was transferred from [facility] to [facility] and had distal RCA stent w EF of 40-45% at time. According to the patient medications changes included DC Imdur and starting Brilinta along baby Aspirin and Losartan. She is presenting to ED today with worsening SOB and heaviness in her chest with discomfort\pain in her epigastric area. can not take deep breath. better while sitting up. In ED Trop was 1384 (trending down since 06/20 of >66638). EKG showing Q-waves in II,II and aVF. discussed with cardiology who recommended observation for possible pericarditis. admitted for further monitoring and treatment. Review of Systems Review of Systems: No fever, chills or weakness having chest pain with no palpitation reporting shortness of breath but no coughing No abdominal pain, nausea or vomiting No urinary symptoms No any rash or wounds PMFSH Medical History NSTEMI (non-ST elevated myocardial infarction) Type 2 diabetes mellitus with hyperglycemia Hidradenitis suppurativa Lower back pain Pain, joint, knee, right Right knee pain Suppurative hidradenitis SADIQ positive Morbid obesity with BMI of 40.0-44.9, adult Breast lesion Abscess Diabetes mellitus Hypothyroidism Essential hypertension 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 STEMI (ST elevation myocardial infarction) Family History Mother Hypertension Father Heart disease Sister Ovarian cancer, Onset Age: 41 Breast cancer Maternal Grandmother Diabetes Other Mental health disorder Substance use disorder Surgical History Hx of meniscectomy of right knee H/O cardiac catheterization [facility] Alcohol intake: current Alcohol intake frequency: holidays/special occasions only Alcohol type: wine Patient Tobacco Use Status: Former Tobacco user Tobacco use type: Cigarette Smoked in Last 30 Days: No e-Cigarette/Vaping Use: Never Used Second Hand Smoke Exposure: No Use of substances other than those prescribed or required for medical reasons: Yes Substance Use Type: Marijuana Advance Directives: No Advance Directives Information Provided: Yes Patient : No service: No Current occupational status: employed 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 Current occupational exposures/hazards: No Cognitive needs: Yes Hearing needs: No Vision needs: No Meds Allergies Allergy/AdvReac Type Severity Reaction Status Date / Time oxycodone [From PERCOCET] Allergy Intermediate N/V Verified 06/25/24 21:43 Sulfa (Sulfonamide Allergy Intermediate UNK, rash Verified 06/25/24 21:43 Antibiotics) [SULFA (SULFONAMIDE ANTIBIOTICS)] metformin AdvReac Severe diarrhea Verified 06/25/24 21:43 Home Medications ?Medication ?Instructions ?Recorded ?Confirmed ?Last Taken ?Type aspirin 81 mg tablet,delayed 81 mg PO DAILY 10/30/20 03/16/24 Unknown History release (Adult Low Dose Aspirin) diphenhydramine 25 2 tab PO BEDTIME sleep 10/06/21 03/16/24 Unknown History mg-acetaminophen 500 mg tablet (Tylenol PM Extra Strength) gabapentin 300 mg capsule 300 mg PO TID 03/16/24 03/16/24 Unknown History Physical Exam Vital Signs and Narrative: Vital Signs: Last Vital Signs Temp 97.4 F 06/25/24 22:17 Pulse 93 06/25/24 22:17 Resp 20 06/25/24 22:17 BP 147/68 H 06/25/24 22:17 Pulse Ox 98 06/25/24 22:17 O2 Del Method Room Air 06/25/24 22:17 BMI result Body Mass Index 33.8 Const: Other: Constitutional : Awake, interactive, not in distress Neck : Normal inspection, Supple Cardiovascular : RRR, no JVP, no lower extremity edema Respiratory : good bilateral air entry, no crackles, wheezes or rhonchi Gastrointestinal: soft, lax, Normal bowel sounds, Non tender Skin : Warm, Dry Neurological : Alert & oriented x3, No focal deficit Results Labs 06/25/24 22:32 06/25/24 22:32 Labs: Laboratory Results - last 24 hr 02/02/25 22:32 MCV 86.6 MCH 29.8 MCHC 34.4 RDW 14.0 Plt Count 275 MPV 10.9 Immature Gran % (Auto) 0.3 Neut % (Auto) 67.5 Lymph % (Auto) 21.9 [place] % (Auto) 6.7 Eos % (Auto) 3.2 Baso % (Auto) 0.4 Lymph # (Auto) 2.5 [place] # (Auto) 0.8 Eos # (Auto) 0.4 Baso # (Auto) 0.1 Abs Immat Gran (auto) 0.04 H Absolute Neuts (auto) 7.8 Absolute Nucleated RBC 0.000 Nucleated RBC % (auto) 0.0 Anion Gap 14 Estim Creat Clear Calc 94.8 Estimated GFR > 60 Random Glucose 124 H Calcium 9.0 D Total Bilirubin 0.5 AST 24 ALT 22 Alkaline Phosphatase 96 Troponin I High Sens 1384.7 H* D B-Natriuretic Peptide 77 Total Protein 7.2 Albumin 3.8 Assessment and Plan (1) Chest pain: Status: Acute (2) Elevated troponin: Status: Acute Plan A 64 yeats old lady with PMH of CAD , DMII, HYN, Hypothyroid among others with hx of multiple coronary stenting in 2016,2020 and last NSTEMI on 06/20/2024 when she was transferred from [facility] to [facility] and had distal RCA stent w EF of 40-45% at time. Chest pain No EKG Changes to suggest ACS rate 1-3, midsternal\epigastric, more with laying down could represent pericarditis post IN Ibuprofen given in ED , continue with PRN dosage Colchicine another option given she is on ASA and Brilinta Omeprazole for stomach protection Cardiology consult keep on Tele Elevated Trop trending down unlikely new event as EKG showing Q-waves with no ST\T-wave changes monitor on Telemetry Hx CAD s\p PCI Statin, ASA, BRilinta, Losartan, Metoprolol HTN start home meds DMII SSI, POC, diabetic diet DVT PPx Lovenox Full code Quality Stroke Does the patient have a stroke diagnosis?: No VTE Prior VTE?: No VTE Risk Level:: Medical - moderate - high VTE Device Contraindication: Treatment Not Indicated VTE Drug Contraindication: N/A - Med Ordered
[2024-06-26] MEDS: Ibuprofen 400 MG TABLET PO (00:20)
[2024-06-26 02:12] VITALS: BP 133/88; PULSE 81; RESP 18; TEMP 36.9; O2SAT 95
[2024-06-26 02:13] LABS: Prothrombin Time 11.3 SEC (10.9-12.4)
[2024-06-26] MEDS: Ticagrelor 90 MG TABLET PO ×2 (02:21→07:56)
[2024-06-26 02:41] LABS: Influenza A PCR NEGATIVE (Negative); Influenza B PCR NEGATIVE (Negative); Resp Syncy Virus RNA Qual PCR NEGATIVE (Negative); SARS COV2 PCR INHOUSE NEGATIVE (Negative)
[2024-06-26 03:00] LABS: Troponin-I High Sensitivity 1154.7 ng/L (<3.5-17.0)
[2024-06-26 05:16] LABS: Anion Gap 15 (12-20); Blood Urea Nitrogen 15 mg/dL (9-16); Calcium 8.8 mg/dL (8.4-10.2); Carbon Dioxide 19 mmol/L (22-29); Chloride 109 mmol/L (96-108); Creatinine Clr Calc Pharmacy 110.8; Estimated Glomerular Filt Rate > 60; Glucose Random 101 mg/dL (60-115); Potassium 3.7 mmol/L (3.3-5.1); Sodium 139 mmol/L (135-145)
[2024-06-26 06:03] VITALS: BP 136/73; PULSE 86; RESP 10; TEMP 36.8; O2SAT 97
[2024-06-26] MEDS: Levothyroxine Sodium 88 MCG TABLET PO (06:06)
[2024-06-26] MEDS: Omeprazole 20 MG CAPSULE.DR PO (06:06)
[2024-06-26 07:33] LABS: Glucose, Whole Blood 116 mg/dL (60-115)
[2024-06-26 07:36] VITALS: PULSE 87; RESP 16; TEMP 36.5; O2SAT 100
[2024-06-26] MEDS: Aspirin Enteric Coated 81 MG TABLET.DR PO (07:55)
[2024-06-26 08:05] VITALS: BP 137/79; PULSE 84; RESP 18; O2SAT 98
[2024-06-26 09:52] VITALS: BP 145/76; PULSE 86; RESP 16; TEMP 36.3; O2SAT 98
--- NOTE | 2024-06-26 10:34 | PHA.MEDREC ---
Addendum entered by Maranda Ness RPh 06/26/24 10:38: reviewed by [facility]. Original Note: Pharmacy Consult ? Medication Reconciliation Pharmacy has completed the medication reconciliation. Spoke to patient to confirm med list. Patient was able to confirm all her medications. Patient states she is not taking Diphenhydramine 25 mg-Acetaminophen 500 mg, Isosorbide mono 30 mg, Ketoconazole cream, Meloxicam 15 mg. Metoprolol tart 50 mg (Now on Metoprolol succ 100 mg daily). Patient states she took herself of Ozempic 2 mg, last dose was 06/17/24, and started back on Trajenta 5 mg daily because it works better for her.
[2024-06-26] MEDS: Metoprolol Succinate ER 100 MG TAB.ER.24H PO (11:06)
[2024-06-26] MEDS: amLODIPine Besylate 10 MG TABLET PO (11:06)
[2024-06-26] MEDS: Losartan Potassium 25 MG TABLET PO (11:06)
[2024-06-26 11:11] VITALS: BP 130/65; PULSE 79; RESP 16; TEMP 36.3; O2SAT 97
--- NOTE | 2024-06-26 12:39 | PM.CNCAR ---
History of Present Illness History of Present Illness Date of Service: 06/26/24 Requesting physician: Jim Hernandez Chief complaint: Recent NSTEMI, pericarditis Narrative: Pleasant 64 year female with background history of coronary artery disease with previous PCI, hypothyroidism, hypertension, diabetes and recent presentation on June 20 with acute coronary syndrome when she was urgently transferred from [facility] to [facility] underwent cardiac catheterization. At that time she was getting central chest discomfort as well as nausea and vomiting. Her high sensitive troponin level was 32,000 at [facility]. It appears she had plaque rupture and distal RCA with significant thrombus burden which was treated with a drug-eluting stent at that time. She said she did fine after that and went back home but over the last couple of days she was noticing some epigastric discomfort as well as chest heaviness. She said she would feel it more when she was laying down in bed. She did not describe any clear pleuritic symptoms. These symptoms were different from her previous ACS presentation. She has been taking medications regularly. Her high sensitivity troponin level on June 21 was 380[address] which on repeat on June 25 when she presented to us was 1384. Her high sensitive troponin levels have trended down since then to 1154 and 853. [facility] Past Medical History Medical History NSTEMI (non-ST elevated myocardial infarction) Type 2 diabetes mellitus with hyperglycemia Hidradenitis suppurativa Lower back pain Pain, joint, knee, right Right knee pain Suppurative hidradenitis SADIQ positive Morbid obesity with BMI of 40.0-44.9, adult Breast lesion Abscess Diabetes mellitus Hypothyroidism Essential hypertension 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 STEMI (ST elevation myocardial infarction) Family History Family History Mother Hypertension Father Heart disease Sister Ovarian cancer, Onset Age: 41 Breast cancer Maternal Grandmother Diabetes Other Mental health disorder Substance use disorder Surgical History Surgical History Hx of meniscectomy of right knee H/O cardiac catheterization Social History Social History Household Members: None Housing: Condominium Alcohol intake: current Alcohol intake frequency: holidays/special occasions only Alcohol type: wine Patient Tobacco Use Status: Former Tobacco user Tobacco use type: Cigarette e-Cigarette/Vaping Use: Never Used Second Hand Smoke Exposure: No Substance Use Type: Marijuana service: No Current occupational status: employed 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 Current occupational exposures/hazards: No Cognitive needs: Yes Hearing needs: No Vision needs: No Meds Allergies Allergy/AdvReac Type Severity Reaction Status Date / Time oxycodone [From PERCOCET] Allergy Intermediate N/V Verified 06/25/24 21:43 Sulfa (Sulfonamide Allergy Intermediate UNK, rash Verified 06/25/24 21:43 Antibiotics) [SULFA (SULFONAMIDE ANTIBIOTICS)] metformin AdvReac Severe diarrhea Verified 06/25/24 21:43 Active Medications: Current Medications Acetaminophen (Acetaminophen 325 Mg Tablet) 650 mg PO Q6H PRN PRN Reason: Pain, Mild 1-3,fever,headache Amlodipine Besylate (Amlodipine Besylate 10 Mg Tablet) 10 mg PO DAILY [facility]; Protocol Last Admin: 06/26/24 11:06 Dose: 10 mg Atorvastatin Calcium (Atorvastatin Calcium 80 Mg Tablet) 80 mg PO BEDTIME [facility] Calcium Carbonate (Calcium Carbonate 750 Mg Tab.Chew) 750 mg PO Q4H PRN PRN Reason: Heartburn Enoxaparin Sodium (Enoxaparin Sodium 40 Mg/0.4 Ml Syringe) 40 mg SUBCUT DAILY [facility] Last Admin: 06/26/24 08:05 Dose: Not Given Gabapentin (Gabapentin 300 Mg Capsule) 300 mg PO TID PRN PRN Reason: nerve pain Ibuprofen (Ibuprofen 400 Mg Tablet) 400 mg PO Q6H PRN PRN Reason: Fever or Pain, Mild (Pain Scale 1-3) Insulin Human Lispro (Insulin Lispro 100 Unit/Ml 3 Ml Vial) 0 unit SUBCUT QIDACHS [facility]; Protocol Last Admin: 06/26/24 11:18 Dose: Not Given Losartan Potassium (Losartan Potassium 25 Mg Tablet) 25 mg PO DAILY [facility]; Protocol Last Admin: 06/26/24 11:06 Dose: 25 mg Magnesium Hydroxide (Milk Of Magnesia 30 Ml Oral.Susp) 30 ml PO DAILY PRN PRN Reason: Constipation Melatonin (Melatonin 3 Mg Tablet) 6 mg PO BEDTIME PRN PRN Reason: Insomnia Metoprolol Succinate (Metoprolol Succinate Er 100 Mg Tab.Er.24h) 100 mg PO DAILY [facility]; Protocol Last Admin: 06/26/24 11:06 Dose: 100 mg Omeprazole (Omeprazole 20 Mg Capsule.Dr) 20 mg PO DAILY@0630 [facility] Last Admin: 06/26/24 06:06 Dose: 20 mg Ondansetron HCl (Ondansetron Hcl 4 Mg/2 Ml Vial) 4 mg IVPUSH Q8H PRN PRN Reason: Nausea and Vomiting Sodium Chloride (0.9 % Sodium Chloride Flush 3 Ml Syringe) 3 ml IVFLUSH QSHIFT [facility] Last Admin: 06/26/24 09:43 Dose: Not Given Home Medications ?Medication ?Instructions ?Recorded ?Confirmed ?Last Taken ?Type aspirin 81 mg tablet,delayed 81 mg PO DAILY 10/30/20 06/26/24 06/25/24 History release (Adult Low Dose Aspirin) gabapentin 300 mg capsule 300 mg PO TID PRN nerve pain 03/16/24 06/26/24 06/25/24 History atorvastatin 80 mg tablet 80 mg PO BEDTIME 06/26/24 06/26/24 06/25/24 History levothyroxine 88 mcg tablet 88 mcg PO DAILY@0600 06/26/24 06/26/24 06/25/24 History linagliptin 5 mg tablet (Tradjenta) 5 mg PO DAILY 06/26/24 06/26/24 06/25/24 History losartan 25 mg tablet 25 mg PO DAILY 06/26/24 06/26/24 06/25/24 History metoprolol succinate 100 mg 100 mg PO DAILY 06/26/24 06/26/24 06/25/24 History tablet,extended release 24 hr ticagrelor 90 mg tablet (Brilinta) 90 mg PO BID 06/26/24 06/26/24 06/25/24 History Physical Exam Vital Signs: Vital Signs: Last Vital Signs Temp 97.4 F 06/26/24 11:11 Pulse 79 06/26/24 11:11 Resp 16 06/26/24 11:11 BP 130/65 06/26/24 11:11 Pulse Ox 97 06/26/24 11:11 O2 Del Method Room Air 06/26/24 11:11 BMI result Body Mass Index 33.8 GENERAL APPEARANCE: in no acute distress, pleasant. NECK: no carotid bruit, no jugular venous distention. SKIN: no suspicious lesions, warm and dry. HEART: no murmurs, regular rate and rhythm. LUNGS: clear to auscultation bilaterally. ABDOMEN: soft, nontender. EXTREMITIES: no edema. PERIPHERAL PULSES: equal. NEUROLOGIC: No gross deficits, AAO X 3 Objective Labs and Meds 06/25/24 22:32 06/26/24 04:24 Lab results: Laboratory Results - last 24 hr 06/25/24 06/26/24 06/26/24 22:32 02:00 02:33 WBC 11.5 H RBC 4.77 Hgb 14.2 Hct 41.3 MCV 86.6 MCH 29.8 MCHC 34.4 RDW 14.0 Plt Count 275 MPV 10.9 Immature Gran % (Auto) 0.3 Neut % (Auto) 67.5 Lymph % (Auto) 21.9 [place] % (Auto) 6.7 Eos % (Auto) 3.2 Baso % (Auto) 0.4 Lymph # (Auto) 2.5 [place] # (Auto) 0.8 Eos # (Auto) 0.4 Baso # (Auto) 0.1 Abs Immat Gran (auto) 0.04 H Absolute Neuts (auto) 7.8 Absolute Nucleated RBC 0.000 Nucleated RBC % (auto) 0.0 PT 11.3 INR 1.0 Sodium 140 Potassium 4.0 Chloride 110 H Carbon Dioxide 20 L Anion Gap 14 BUN 20 H Creatinine 0.69 Estim Creat Clear Calc 94.8 Estimated GFR > 60 POC Glucose Random Glucose 124 H Calcium 9.0 D Total Bilirubin 0.5 AST 24 ALT 22 Alkaline Phosphatase 96 Troponin I High Sens 1384.7 H* D 1154.7 H* B-Natriuretic Peptide 77 Total Protein 7.2 Albumin 3.8 Influenza Type A (PCR) NEGATIVE Influenza Type B (PCR) NEGATIVE RSV RNA Qual (PCR) NEGATIVE SARS-CoV-2 RNA (RT-PCR) NEGATIVE 06/26/24 06/26/24 06/26/24 04:24 07:28 09:24 WBC RBC Hgb Hct MCV MCH MCHC RDW Plt Count MPV Immature Gran % (Auto) Neut % (Auto) Lymph % (Auto) [place] % (Auto) Eos % (Auto) Baso % (Auto) Lymph # (Auto) [place] # (Auto) Eos # (Auto) Baso # (Auto) Abs Immat Gran (auto) Absolute Neuts (auto) Absolute Nucleated RBC Nucleated RBC % (auto) PT INR Sodium 139 Potassium 3.7 Chloride 109 H Carbon Dioxide 19 L Anion Gap 15 BUN 15 Creatinine 0.59 Estim Creat Clear Calc 110.8 Estimated GFR > 60 POC Glucose 116 H Random Glucose 101 Calcium 8.8 Total Bilirubin AST ALT Alkaline Phosphatase Troponin I High Sens 853.0 H* B-Natriuretic Peptide Total Protein Albumin Influenza Type A (PCR) Influenza Type B (PCR) RSV RNA Qual (PCR) SARS-CoV-2 RNA (RT-PCR) Assessment and Plan (1) Pericarditis: Status: Acute (2) Elevated troponin: Status: Acute (3) Atherosclerotic cardiovascular disease: Status: Acute Plan Pleasant 64 year female with known history of coronary disease with recent high risk NSTEMI status post PCI to RCA on June 21. She is presenting with chest discomfort and clinical story appears to be consistent with post NE pericarditis. Starting her on colchicine. Continue aspirin and Brilinta uninterrupted given recent PCI. High sensitivity troponin levels are trending down from her index infarct on June 21. Further troponins are required. Echocardiography to rule out any pericardial effusion. Once echo is done and if she is feeling better can be discharged back home. Thank you for allowing me to participate in the care of your patient. Please feel free to contact me if you have any questions. Procedures Date of Service Date of Service: 06/26/24
[2024-06-26] MEDS: Aspirin 81 MG TAB.CHEW PO (13:20)
[2024-06-26] MEDS: Colchicine 0.6 MG TABLET 1.2 MG PO (13:20)
--- NOTE | 2024-06-26 13:52 | PM.DS ---
DS: Providers Provider Date of Service: 06/26/24 Date of admission: 06/26/24 01:06 Date of discharge: 06/26/24 Primary care physician: Lorena Zavaleta MD Consults: 06/26/24 01:09 Consult to Cardiology Routine Consulting Provider: [facility] Reason for consultation: Chest discomfort post NSTEMI and PCI DS: Diagnosis Discharge Diagnosis (1) Pericarditis: Status: Acute (2) Elevated troponin: Status: Acute (3) Atherosclerotic cardiovascular disease: Status: Acute DS: Summary Hospital Course Hospital Course: 64 yeats old lady with PMH of CAD , DMII, HYN, Hypothyroid among others with hx of multiple coronary stenting in 2016,2020 and last NSTEMI on 06/20/2024 when she was transferred from [facility] to [facility] and had distal RCA stent w EF of 40-45% at time. According to the patient medications changes included DC Imdur and starting Brilinta along baby Aspirin and Losartan. She is presenting to ED today with worsening SOB and heaviness in her chest with discomfort\pain in her epigastric area. can not take deep breath. better while sitting up. In ED Trop was 1384 (trending down since 06/20 of >18589). EKG showing Q-waves in II,II and aVF. discussed with cardiology who recommended observation for possible pericarditis. admitted for further monitoring and treatment. Hospital Course Patient admitted to telemetry where monitor failed to demonstrate any acute dysrhythmias. She was seen in consultation by Cardiology who felt this was likely related to a pericarditis. She was started on colchicine in the hospital and will continue to take as outpatient for 3 months. She will follow up with her primary warp bleaching vat tender at [facility]. At this point she is eager to be discharged and she is medically acceptable for same. Time Attestation Discharge Coordination Time (in mins): 35 Quality: Safe Use of Opioids Does Pt have an Active Cancer Diagnosis on the Problem List?: No Quality: Stroke Does the patient have a stroke diagnosis?: No Physical Exam Vital Signs: Vital Signs: Last Vital Signs Temp 97.4 F 06/26/24 11:11 Pulse 79 06/26/24 11:11 Resp 16 06/26/24 11:11 BP 130/65 06/26/24 11:11 Pulse Ox 97 06/26/24 11:11 O2 Del Method Room Air 06/26/24 11:11 BMI result Body Mass Index 33.8 Const: Other: Awake alert no acute distress Resp: Other: Clear to auscultation bilaterally no rales rhonchi or wheezes Cardio: Other: No S4; positive S1-S2; no S3 murmurs rubs or gallops GI: Other: Soft nontender nondistended normoactive bowel sounds Extrem: Other: No edema bilaterally DS: Data Data Completed and Pending Labs on day of discharge: Laboratory Results - last 24 hr 06/25/24 06/26/24 06/26/24 22:32 02:00 02:33 WBC 11.5 H RBC 4.77 Hgb 14.2 Hct 41.3 MCV 86.6 MCH 29.8 MCHC 34.4 RDW 14.0 Plt Count 275 MPV 10.9 Immature Gran % (Auto) 0.3 Neut % (Auto) 67.5 Lymph % (Auto) 21.9 [place] % (Auto) 6.7 Eos % (Auto) 3.2 Baso % (Auto) 0.4 Lymph # (Auto) 2.5 [place] # (Auto) 0.8 Eos # (Auto) 0.4 Baso # (Auto) 0.1 Abs Immat Gran (auto) 0.04 H Absolute Neuts (auto) 7.8 Absolute Nucleated RBC 0.000 Nucleated RBC % (auto) 0.0 PT 11.3 INR 1.0 Sodium 140 Potassium 4.0 Chloride 110 H Carbon Dioxide 20 L Anion Gap 14 BUN 20 H Creatinine 0.69 Estim Creat Clear Calc 94.8 Estimated GFR > 60 POC Glucose Random Glucose 124 H Calcium 9.0 D Total Bilirubin 0.5 AST 24 ALT 22 Alkaline Phosphatase 96 Troponin I High Sens 1384.7 H* D 1154.7 H* B-Natriuretic Peptide 77 Total Protein 7.2 Albumin 3.8 Influenza Type A (PCR) NEGATIVE Influenza Type B (PCR) NEGATIVE RSV RNA Qual (PCR) NEGATIVE SARS-CoV-2 RNA (RT-PCR) NEGATIVE 06/26/24 06/26/24 06/26/24 04:24 07:28 09:24 WBC RBC Hgb Hct MCV MCH MCHC RDW Plt Count MPV Immature Gran % (Auto) Neut % (Auto) Lymph % (Auto) [place] % (Auto) Eos % (Auto) Baso % (Auto) Lymph # (Auto) [place] # (Auto) Eos # (Auto) Baso # (Auto) Abs Immat Gran (auto) Absolute Neuts (auto) Absolute Nucleated RBC Nucleated RBC % (auto) PT INR Sodium 139 Potassium 3.7 Chloride 109 H Carbon Dioxide 19 L Anion Gap 15 BUN 15 Creatinine 0.59 Estim Creat Clear Calc 110.8 Estimated GFR > 60 POC Glucose 116 H Random Glucose 101 Calcium 8.8 Total Bilirubin AST ALT Alkaline Phosphatase Troponin I High Sens 853.0 H* B-Natriuretic Peptide Total Protein Albumin Influenza Type A (PCR) Influenza Type B (PCR) RSV RNA Qual (PCR) SARS-CoV-2 RNA (RT-PCR) Discharge Plan Discharge Anticipated Discharge Date/Time: 06/26/24 13:37 Patient Disposition: Home, Self-Care Discharge Diagnosis: Pericarditis Referrals: Lorena Archer MD [Primary Care Provider] - 1 Week Discharge Medications: New colchicine [Colcrys] 0.6 mg Tablet 0.6 mg PO DAILY Qty: 30 3RF Continued lorazepam [Ativan] 0.5 mg tablet 0.5 mg PO BID PRN (Reason: anxiety) 2 Days Qty: 4 0RF amlodipine 10 mg tablet 10 mg PO DAILY Qty: 30 6RF metoprolol succinate 100 mg tablet extended release 24 hr 100 mg PO DAILY losartan 25 mg tablet 25 mg PO DAILY Brilinta 90 mg tablet 90 mg PO BID Tradjenta 5 mg tablet 5 mg PO DAILY atorvastatin 80 mg tablet 80 mg PO BEDTIME levothyroxine 88 mcg tablet 88 mcg PO DAILY@0600 aspirin [Adult Low Dose Aspirin] 81 mg tablet,delayed release (DR/EC) 81 mg PO DAILY gabapentin 300 mg capsule 300 mg PO TID PRN (Reason: nerve pain) Discharge Orders: Discharge Order (Routine); Ordered 06/26/24 Ordered By: Jim Hernandez Diet: Advance to usual diet Activity on Discharge: As tolerated Stand Alone Forms: Patient Portal Discharge page, Work/School Release Print Language: Fijian Care Plan Goals: Colchicine 0.6 mg daily has been added to your regimen. He will continues for 3 months. Follow up with your primary warp bleaching vat tender next available Health Concerns: Resume all other medicines as taken prior to the hospital Plan of Treatment: Make appointment for your Assessment: See discharge summary
[2024-06-26] MEDS: Colchicine 0.6 MG TABLET PO (14:20)
--- NOTE | 2024-06-26 14:22 | MHC.CM.PN ---
MARTA 06/26/24, EMR REVIEWED, PLAN FOR PT TO DC HOME ONCE ECHO READ, DC ORDER IN, PT WILL ARRANGE TRANSPORT. CM MET W/PT AT BEDSIDE, PT IS FULLY INDEP W/CARE AND WORKS, PT USES A CANE FOR DME, NO SERVICE, PT'S GOAL FRO DC IS HOME TODAY. PT VERIFIES PCP AND EDUCATED ON AND DECLINES TO COMPLETE A HCP AT THIS TIME.
--- NOTE | 2024-06-26 17:00 | CA_ITS ---
Transthoracic Echocardiogram Patient (Last, First, Middle): Judi Duran, Gender: Female Date of : 1960 Age: 64 Procedure Date: 06/26/2024 Procedure Type: Transthoracic Echocardiogram Location[place] [facility] [place] Height: 165.1 cm Weight: 92.08 kg BSA: 1.99 m2 Heart Rate: bpm BP: 130 / 65 mmHg Aerospace Engineer: SB Referring MD: Jim Hernandez DO Symptoms: CAD Study Quality: Fair ECG Rhythm: Sinus Conclusions: - Normal left ventricular size and systolic function. The visually estimated ejection fraction is between 55-60%. - The basal inferior segment is akinetic. - There is no evidence of pericardial effusion. Findings Left Ventricle Normal left ventricular size and systolic function. The visually estimated ejection fraction is between 55-60%. There is evidence of regional wall motion abnormalities. Diastolic function is indeterminate on the basis of available data. Wall Motion Rest Echo Findings The basal inferior segment is akinetic. Right Ventricle Normal right ventricular cavity size and systolic function. Venous The inferior vena cava is normal in size and collapses greater than 50% with inspiration. Pericardium/Pleural There is no evidence of pericardial effusion. Prior Study Comparison No prior study available for comparison. Measurements 2D Linear Measurements IVSd: 1.13 0.6-0.9/0.6-1.0 cm LVIDd: 4.45 3.9-5.3/4.2-5.9 cm LVIDd Index: 2.24 2.4-3.2/2.2-3.1 cm/m2 LVIDs: 2.95 2.0-3.6 cm 2D Systolic Function EF 4C: 59.90 >55% EF 2C: 52.30 >55% EF BiP: 55.50 >55% Mitral Valve E'Lateral: 6.74 E'Medial: 3.70 Diastolic Function E'Medial: 3.70 E' Laterial: 6.74 Tricuspid Valve RA Press: 3.00 Updated in Other Vendor System with Status of Final Phi Rea MD electronically signed on 06/26/2024 2:28:53 PM with status of Final
== END 2024-06-26 15:11 | disposition home or self-care (01) ==
LOC: HO.ED 22:55 → HO.EDOVER 06-26 01:12 → HO.IMC 06-26 08:55
PROVIDERS: Nurse Practitioner Family; Admitting Provider Student in an Organized Health Care Education/Training Program; Emergency Provider Emergency Medicine; PCP Internal Medicine; Visit Provider Hospitalist
DX: I31.9 Disease of pericardium, unspecified (principal); R79.89 Other specified abnormal findings of blood chemistry; R07.9 Chest pain, unspecified; E11.9 Type 2 diabetes mellitus without complications; I10 Essential (primary) hypertension; E20.9 Hypoparathyroidism, unspecified; I25.10 Atherosclerotic heart disease of native coronary artery without angina pectoris; I25.2 Old myocardial infarction; L73.2 Hidradenitis suppurativa; Z79.899 Other long term (current) drug therapy; Z03.818 Encounter for observation for suspected exposure to other biological agents ruled out
CPT/HCPCS: 0241U; 36415; 71046; 80048; 80053; 82947; 83880; 84484; 85025; 85610; 93005; 93308; 99222; 99285

== ENCOUNTER → 2024-06-25 22:59 | Outpatient (BNV) | payer OTHER, SELFPAY | PROVIDERS: Emergency Provider Emergency Medicine; PCP Internal Medicine; Visit Provider Radiology Diagnostic Radiology | DX: R07.9 Chest pain, unspecified (principal) | CPT/HCPCS: 71046 ==

== ENCOUNTER → 2024-06-26 01:06 | Outpatient (BNV) | payer OTHER, SELFPAY | PROVIDERS: Admitting Provider Student in an Organized Health Care Education/Training Program; Emergency Provider Emergency Medicine; PCP Internal Medicine; Visit Provider Internal Medicine Cardiovascular Disease | DX: I21.4 Non-ST elevation (NSTEMI) myocardial infarction (principal); I23.8 Other current complications following acute myocardial infarction; R79.89 Other specified abnormal findings of blood chemistry; I25.10 Atherosclerotic heart disease of native coronary artery without angina pectoris | CPT/HCPCS: 93308; 99223 ==

== ENCOUNTER → 2024-06-26 01:06 | Outpatient (BNV) | payer OTHER, SELFPAY | PROVIDERS: Admitting Provider Student in an Organized Health Care Education/Training Program; Emergency Provider Emergency Medicine; PCP Internal Medicine; Visit Provider Student in an Organized Health Care Education/Training Program | DX: I31.9 Disease of pericardium, unspecified (principal); R79.89 Other specified abnormal findings of blood chemistry; I25.10 Atherosclerotic heart disease of native coronary artery without angina pectoris; R07.9 Chest pain, unspecified | CPT/HCPCS: 99222; 99239 ==

== ENCOUNTER 2024-07-05 13:32 | Outpatient (AMB) | payer OTHER, SELFPAY ==
--- NOTE | 2024-07-05 13:39 | A.OFFPC_ITS ---
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 Accompanied by: Self / Same As Patient Allergies oxycodone [From PERCOCET] Allergy (Intermediate, Verified 07/05/24 14:03) N/V Sulfa (Sulfonamide Antibiotics) [SULFA (SULFONAMIDE ANTIBIOTICS)] Allergy (Intermediate, Verified 07/05/24 14:03) UNK, rash metformin Adverse Reaction (Severe, Verified 07/05/24 14:03) diarrhea Medication List - Last Reconciled 07/05/24 by Lorena Zavaleta MD amlodipine 10 mg PO DAILY aspirin (Adult Low Dose Aspirin) 81 mg PO DAILY atorvastatin 80 mg PO BEDTIME colchicine (Colcrys) 0.6 mg PO DAILY gabapentin 300 mg PO TID PRN levothyroxine 88 mcg PO DAILY@0600 linagliptin (Tradjenta) 5 mg PO DAILY losartan 25 mg PO DAILY metoprolol succinate ER 100 mg PO DAILY ticagrelor (Brilinta) 90 mg PO BID Tobacco use date assessed: 07/05/24 Dental Screening Dental Screen Date: 07/05/24 Did you have a dental visit in the last 12 months?: Yes Did you have a dental problem in the last 6 months where you did not have access to dental care?: No Was dental information given to patient?: Patient has dentist HPI [facility] Information Date of Discharge 06/26/24 Discharged From [facility] Interactive Contact Date (Reference documentation from this date) 06/27/24 HPI Comments History of Present Illness Details The patient is a 64-year-old female presenting with a persistent cough and suspected bronchitis. The patient reports experiencing a terrible cough that began following her discharge from a recent hospital stay, during which she was noted to have high blood pressure readings. The highest recorded was 198/178 mmHg, attributed to the use of an incorrectly sized blood pressure cuff. Post- intervention adjusting for proper cuff size, blood pressure improved. She stated that her medications include Metoprolol, Amlodipine, and Losartan, all prescribed to manage her essential hypertension and post-MS care. The patient experienced occasional mucus production but denies shortness of breath. 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 The patient confirmed that she received a flu shot. For her chronic conditions, she maintains pharmacotherapy with agents including Atorvastatin and Colchicine for cardiovascular risk management, while prior diabetic medication regimen Trajenta was reinitiated after concerns with Ozempic's efficacy. She was discharged from the hospital June 26 due to shortness on breath with suspected pericarditis after being hospitalized June 20 and due to a non-STEMI requiring distal RCA stent with an ejection fraction of 40-45% at the time. Currently on colchicine for suspected pericarditis and follow by cardiology. EKG showing Q-waves in 2 3 and AVF. Troponins were up but has been trending down. Walks with a cane for gait stability due to chronic low back pain follow by pain management. Was placed on Brilinta which will stay on it for a year. Denies any active bleeding. 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 STEMI (ST elevation myocardial infarction) Surgical History Hx of meniscectomy of right knee H/O cardiac catheterization Family History Mother Hypertension Father Heart disease Sister Ovarian cancer, Onset Age: 41 Breast cancer Maternal Grandmother Diabetes Other Mental health disorder Substance use disorder Social History Household Members: None Housing: Condominium Alcohol intake: current Alcohol intake frequency: holidays/special occasions only Alcohol type: wine Patient Tobacco Use Status: Former Tobacco user Tobacco use type: Cigarette e-Cigarette/Vaping Use: Never Used Second Hand Smoke Exposure: No Substance Use Type: Marijuana service: No Current occupational status: employed 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 1. Little interest or pleasure in doing things: several days 2. Feeling down, depressed, or hopeless: several days 3. Trouble falling or staying asleep, or sleeping too much: not at all 4. Feeling tired or having little energy: not at all 5. Poor appetite or overeating: several days 6. Feeling bad about yourself - or that you are a failure or have let yourself or your family down: not at all 7. Trouble concentrating on things, such as reading the newspaper or watching television: not at all 8. Moving or speaking so slowly that other people could have noticed. Or the opposite - being so fidgety or restless that you have been moving around a lot more than usual: not at all 9. Thoughts that you would be better off or of hurting yourself in some way: not at all Total score: 3 Depression Screening Interpretation: Negative Depression Screening Done: Yes 06931 - PHQ-9 Billing: Yes Source: Developed by Drs. Neo Fountain, Rosmery Mosqueda, Jon Calderon and colleagues, with an educational glendy from [employer]. Thrive Questionnaire Date Thrive assessed: 06/26/24 CHRISTIAN-7 AMB Questionnaire CHRISTIAN-7 Date CHRISTIAN - 7 assessed: 06/10/23 Source: Developed by Rosmery Schwab Kurt Kroenke and colleagues, with an educational glendy from [employer]. Review of Systems Const All systems reviewed & are unremarkable except as noted in HPI and below Reports fatigue Card Denies chest pain at rest, Denies chest pain with activity, Denies edema, Denies irregular heart rhythm, Denies claudication, Denies dyspnea, Denies dyspnea on exertion, Denies orthopnea, Denies paroxysmal nocturnal dyspnea and Denies slow heart rate Resp Reports cough, Denies dyspnea and Denies dyspnea on exertion GI Denies abdominal pain, Denies change in bowel habits, Denies excessive flatus, Denies nausea and Denies vomiting Denies urinary incontinence, Denies urinary hesitancy and Denies urinary urgency Musc Denies abnormal gait, Denies atrophy, Denies deformity and Denies limited range of motion Skin/Breast Denies bleeding lesions, Denies changing lesions and Denies rash Neuro Denies abnormal gait and Denies lack of coordination Endo Reports fatigue Physical exam (Primary Care) Vital Signs: Last Vital Signs BP 126/70 07/05/24 13:42 Tobacco/Smoking Status: Tobacco use Status Tobacco use date assessed 07/05/24 07/05/24 13:49 Patient Tobacco Use Status Former Tobacco user 07/05/24 13:40 Tobacco use type Cigarette 07/05/24 13:40 e-Cigarette/Vaping Use Never Used 07/05/24 13:40 PHQ-9: PHQ-9 Score PHQ-9: Total score 3 07/05/24 14:04 Depression Screening Interpretation: Negative Thrive Assessment: Date of Thrive Assessment Date Thrive assessed 06/26/24 07/05/24 13:40 Const Limitations: ambulation with cane Resp Auscultation: wheezes lower bilaterally Cardio Jugular venous distension: no JVD Rate: regular rate Rhythm: regular rhythm Heart sounds: S1 normal heart sound present and S2 normal heart sound present Extrem General: Yes full ROM Coding Level of Care Code TCM Mod MDM <= 14 Days Diagnoses Bronchitis J40 Lumbar radiculopathy M54.16 Pericarditis I31.9 Hyperlipidemia LDL goal <70 E78.5 Type 2 diabetes mellitus without complication, without long-term current use of insulin E11.9 Diabetes mellitus type: type 2 Diabetes mellitus fci insulin use: without fci use Diabetes mellitus complication status: without complication NSTEMI (non-ST elevated myocardial infarction) I21.4 Essential hypertension I10 Additional Codes PHQ-9 - 00494 - PHQ-9 Billing: Yes ([id number]) Time Spent (min) 28 Assessment & Plan Assessment & Plan (1) Bronchitis: Code(s): J40 - Bronchitis, not specified as acute or chronic Category: Medical (2) Lumbar radiculopathy: Code(s): M54.16 - Radiculopathy, lumbar region Category: Medical (3) Pericarditis: Code(s): I31.9 - Disease of pericardium, unspecified Category: Medical (4) Hyperlipidemia LDL goal <70: Code(s): E78.5 - Hyperlipidemia, unspecified Category: Medical (5) Diabetes mellitus: Code(s): E11.9 - Type 2 diabetes mellitus without complications Category: Medical Qualifiers: Diabetes mellitus type: type 2 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 - Recommend a chest X-ray to rule out pneumonia, given wheezing and persistent cough. - Arrange for a viral panel swab test, including RSV and influenza. - Continue current antihypertensive and post-MS medications. - Consider patient outcome in long-term disability and potential fdc plan toña. Patient was informed and verbally consented to the use of an ambient scribe for clinic note documentation during this visit. I discussed with the patient the suspected diagnosis of bronchitis, potentially with an underlying pneumonia, given the persistent cough and respiratory wheezing noted on examination. The possibility of Influenza and RSV was considered, and a swab test was ordered to confirm or rule out these infections. Since the patient was COVID-negative and had received the flu shot, immediate concerns were mitigated but nonetheless addressed by initiating antibiotic therapy with Azithromycin. I emphasized the need for a chest x-ray to confirm the lack of pneumonia and explained that the antibiotic regimen would serve dual purposes for bronchitis treatment. The patient expressed concerns regarding her work attendance and future fdc considerations; I reassured her of support in managing any paperwork for disability if required. Follow-up for her comprehensive long-term health management was scheduled, with flexibility allowing for her PTO constraints. Orders: Orders Microalbumin, Random (w Creat) 4 Months R80.9 - Proteinuria, unspecified SARS-CoV2/FLU/RSV 07/05/24 R09.89 - Other specified symptoms and signs involving the circulatory and respiratory systems XR chest 2V 07/05/24 J40 - Bronchitis, not specified as acute or chronic Lipid Panel 4 Months E78.5 - Hyperlipidemia, unspecified Vitamin D 25-OH Total 4 Months E55.9 - Vitamin D deficiency, unspecified Comprehensive [place]. Panel Fast 4 Months E78.5 - Hyperlipidemia, unspecified Thyroid Stimulating Hormone 4 Months E03.9 - Hypothyroidism, unspecified Medications: New azithromycin Take 2 tabs the first day, then 1 tab the next 4 days 250 mg PO DAILY 6 tabs 0RF 5 days Patient Instructions: - Commence the prescribed Azithromycin (Z-Lior) as directed. - Attend the radiology department for a chest x-ray immediately. - Return to the lab for a swab test for RSV and influenza. - Use elevators to ease mobility due to reduced stability with the cane. - Consider discussing fdc and financial planning with an advisor. - Monitor symptoms and report any worsening, such as increased cough or fever. - Schedule blood work for follow-up as instructed, potentially delaying until August.
[2024-07-05 13:42] VITALS: BP 126/70
== END 2024-07-05 14:18 | disposition home or self-care (01) ==
PROVIDERS: PCP Internal Medicine; Visit Provider Internal Medicine
DX: J40 Bronchitis, not specified as acute or chronic (principal); E11.69 Type 2 diabetes mellitus with other specified complication; I25.2 Old myocardial infarction; M54.16 Radiculopathy, lumbar region; I31.9 Disease of pericardium, unspecified; E78.5 Hyperlipidemia, unspecified; I10 Essential (primary) hypertension

== ENCOUNTER 2024-07-05 13:32 | Outpatient (REF) | payer OTHER, SELFPAY ==
--- NOTE | ~2024-07-05 | XR_ITS ---
EXAMINATION: XR CHEST CLINICAL INFORMATION: J40 - Bronchitis, not specified as acute or chronic COMPARISON: , 06/20/2024, 10/18/2020. TECHNIQUE: 2 views of the chest were obtained. FINDINGS: The cardiac, hilar, and mediastinal contours are normal. Lungs demonstrate tiny linear focus of atelectasis left base. Lungs otherwise clear. There is no pneumothorax or pleural effusion. There is no focal osseous or soft tissue abnormality. There are spinal degenerative changes. XR/XR chest 2V IMPRESSION: No active pulmonary disease. Electronically signed by: John Holley MD 07/05/2024 03:14 PM [facility]
[2024-07-05 16:12] LABS: Influenza A PCR NEGATIVE (Negative); Influenza B PCR NEGATIVE (Negative); Resp Syncy Virus RNA Qual PCR NEGATIVE (Negative); SARS COV2 PCR INHOUSE NEGATIVE (Negative)
== END 2024-07-05 13:33 | disposition home or self-care (01) ==
LOC: HO.XRAY 13:32
PROVIDERS: PCP Internal Medicine; Visit Provider Internal Medicine
DX: R80.9 Proteinuria, unspecified (principal); R09.89 Other specified symptoms and signs involving the circulatory and respiratory systems; J40 Bronchitis, not specified as acute or chronic; R05.3 Chronic cough; M54.16 Radiculopathy, lumbar region; I31.9 Disease of pericardium, unspecified; E78.5 Hyperlipidemia, unspecified; E11.9 Type 2 diabetes mellitus without complications; I10 Essential (primary) hypertension; I21.4 Non-ST elevation (NSTEMI) myocardial infarction
CPT/HCPCS: 0241U; 71046; 96127

== ENCOUNTER → 2024-07-05 14:36 | Outpatient (BNV) | payer OTHER, SELFPAY | PROVIDERS: PCP Internal Medicine; Visit Provider Radiology Diagnostic Radiology | DX: J98.11 Atelectasis (principal) | CPT/HCPCS: 71046 ==

== ENCOUNTER 2025-01-25 16:49 | Outpatient (AMB) | payer OTHER, SELFPAY ==
--- OUTSIDE RECORDS SUMMARY | 2025-01-25 16:52 | XMS_ITS | Patient Health Record ---
Author Organization [facility] Address [address] [place] [address] Care Team Providers Care Control Technician Name Role Phone Navneet(INACTIVE), Cinthya Primary Care Pr ovider Unavailable Jakub August Jr Unavailable [phone] Reason For Referral No Information Plan Of Treatment No Information Insurance Providers Payer Name Payer Address Payer Phone Subscriber Number Group Number Insured Name Patient Relationship to Insured Coverage Start Date Coverage End Date [facility] [address] [place] [phone] [id number] YEMI SMITH Self - patient is the insured
[2025-01-25 17:06] VITALS: BP 124/70; PULSE 71; O2SAT 96
--- NOTE | 2025-01-25 17:06 | MHC.PC.OV ---
Vital Signs 01/25/25 17:06 Height 5 ft 5 in BMI Reason not done Patient refused/unable BP 124/70 Blood Pressure Location Lt brachial Position Sitting Pulse 71 Pulse Source Pulse Oximeter Pulse Oximetry (%) 96 Oxygen Delivery Method Room Air Intake Visit Reasons: psoriasis. 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: No Accompanied by: Self / Same As Patient Allergies oxycodone (From PERCOCET) Allergy (Intermediate, Verified 01/25/25 17:20) N/V Sulfa (Sulfonamide Antibiotics) (SULFA (SULFONAMIDE ANTIBIOTICS)) Allergy (Intermediate, Verified 01/25/25 17:20) UNK, rash metformin Adverse Reaction (Severe, Verified 01/25/25 17:20) diarrhea Medication List - Last Reconciled 01/25/25 by Lorena Zavaleta MD amlodipine 10 mg PO DAILY aspirin (Adult Low Dose Aspirin) 81 mg PO DAILY atorvastatin 80 mg PO DAILY 90 days azithromycin 250 mg PO DAILY 5 days colchicine (Colcrys) 0.6 mg PO DAILY gabapentin 200 mg (2 x 100 mg) PO TID 30 days gabapentin 300 mg PO TID 30 days levothyroxine 88 mcg PO DAILY 90 days lidocaine 5% 1 patch topical DAILY PRN 30 days linagliptin (Tradjenta) 5 mg PO DAILY 90 days losartan 25 mg PO DAILY 90 days meloxicam 15 mg PO DAILY 90 days metoprolol succinate ER 100 mg PO DAILY 90 days prednisone 10 mg PO DIRECTED 8 days ticagrelor (Brilinta) 90 mg PO BID tirzepatide (Mounjaro) 5 mg (0.5 mL) subcut QWEEK 4 weeks tirzepatide (Mounjaro) 7.5 mg (0.5 mL) subcut QWEEK 4 weeks Tobacco use date assessed: 01/25/25 Dental Screening Dental Screen Date: 01/25/25 Did you have a dental visit in the last 12 months?: Yes Did you have a dental problem in the last 6 months where you did not have access to dental care?: No Was dental information given to patient?: Patient has dentist HPI HPI Comments History of Present Illness Details This is a 64-year-old female with diabetes mellitus type 2, hypothyroidism, hypertension, hyperlipidemia, history of non-STEMI in May of this year and lumbar radiculopathy that comes today for follow-up on her conditions. A1c within goal being less than 7% today. Blood pressure well controlled. Labs will be order to check for TSH and LDL. Complains of low back pain and walks with a cane for gait stability. Back pain is constant and she does follows with pain management. No chest pain or shortness on breath. Gabapentin does mildly relieved the pain but makes her sleepy. I will change it to pregabalin. 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 STEMI (ST elevation myocardial infarction) Surgical History Hx of meniscectomy of right knee H/O cardiac catheterization Family History Mother Hypertension Father Heart disease Sister Ovarian cancer, Onset Age: 41 Breast cancer Maternal Grandmother Diabetes Other Mental health disorder Substance use disorder Social History Household Members: None Housing: Condominium Alcohol intake: current Alcohol intake frequency: holidays/special occasions only Alcohol type: wine Patient Tobacco Use Status: Former Tobacco user Tobacco use type: Cigarette e-Cigarette/Vaping Use: Never Used Second Hand Smoke Exposure: No Substance Use Type: Marijuana service: No Current occupational status: employed 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 1. Little interest or pleasure in doing things: not at all 2. Feeling down, depressed, or hopeless: not at all 3. Trouble falling or staying asleep, or sleeping too much: not at all 4. Feeling tired or having little energy: not at all 5. Poor appetite or overeating: not at all 6. Feeling bad about yourself - or that you are a failure or have let yourself or your family down: not at all 7. Trouble concentrating on things, such as reading the newspaper or watching television: not at all 8. Moving or speaking so slowly that other people could have noticed. Or the opposite - being so fidgety or restless that you have been moving around a lot more than usual: not at all 9. Thoughts that you would be better off or of hurting yourself in some way: not at all Total score: 0 Depression Screening Interpretation: Negative Depression Screening Done: Yes 61649 - PHQ-9 Billing: Yes Source: Developed by Drs. Neo Fountain, Rosmery Mosqueda, Jon Calderon and colleagues, with an educational glendy from [employer]. Thrive Questionnaire Date Thrive assessed: 01/25/25 I am a: Patient What is your living situation today?: I have a steady place to live Within the past 12 months, did the food you bought not last and you didn't have the money to get more?: Never true Within the past 12 months, did you worry whether your food would run out before you got money to buy more?: Never true Do you have trouble paying for medicines?: No Do you have trouble getting transportation to medical appointments?: No Do you have trouble paying your heating and electricity bill?: No Do you have trouble taking care of your child, family member or friend?: No Do you have trouble with day-to-day activities such as bathing, preparing meals, shopping, managing finances, etc.?: No Are you currently unemployed and looking for a job?: No Are you interested in more education?: No Please select the resources that you would like help with: None Currently or been in a relationship where the following occur: No concerns reported THRIVE Score: 0 AUDIT C Alcohol Use Questionnaire (AUDIT-C) 1. How often do you have a drink containing alcohol?: Monthly or less 2. How many drinks containing alcohol do you have on a typical day when you are drinking?: 1 or 2 3. How often do you have six or more drinks on one occasion?: Never Total Score: 1 Score Reviewed/Action Taken: No CHRISTIAN-7 AMB Questionnaire CHRISTIAN-7 Date CHRISTIAN - 7 assessed: 01/25/25 Feeling nervous, anxious, or on edge: 0 = Not at all Not being able to stop or control worryin = Not at all Worrying too much about different things: 0 = Not at all Trouble relaxin = Not at all Being so restless that it is hard to sit still: 0 = Not at all Becoming easily annoyed or irritable: 0 = Not at all Feeling afraid as if something awful might happen: 0 = Not at all Total CHRISTIAN-7 score (0-4 normal; 5-9 mild; 10-14 moderate; 15-21 severe): 0 Source: Developed by Drs. Neo Fountain, Rosmery Mosqueda, Jon Calderon and colleagues, with an educational glendy from [employer]. CHRISTIAN-7 Assessment Billing CHRISTIAN-7 Assessment Tool: CHRISTIAN-7 Assessment 71175 Review of Systems Const All systems reviewed & are unremarkable except as noted in HPI and below Card Denies chest pain at rest, Denies chest pain with activity, Denies edema, Denies irregular heart rhythm, Denies claudication, Denies dyspnea, Denies dyspnea on exertion, Denies orthopnea, Denies paroxysmal nocturnal dyspnea and Denies slow heart rate Resp Denies cough, Denies dyspnea and Denies dyspnea on exertion GI Denies abdominal pain, Denies change in bowel habits, Denies excessive flatus, Denies nausea and Denies vomiting Physical exam (Primary Care) Vital Signs: Last Vital Signs Pulse 71 01/25/25 17:06 BP 124/70 01/25/25 17:06 Pulse Ox 96 01/25/25 17:06 Oxygen Delivery Method Room Air 01/25/25 17:06 Tobacco/Smoking Status: Tobacco use Status Tobacco use date assessed 01/25/25 01/25/25 17:09 Patient Tobacco Use Status Former Tobacco user 01/25/25 17:09 Tobacco use type Cigarette 01/25/25 17:09 e-Cigarette/Vaping Use Never Used 01/25/25 17:09 PHQ-9: PHQ-9 Score PHQ-9: Total score 0 01/25/25 17:30 Depression Screening Interpretation: Negative Thrive Assessment: Date of Thrive Assessment Date Thrive assessed 01/25/25 01/25/25 17:09 Currently or been in a relationship where the following occur: No concerns reported Resp Effort & Inspection: normal respiratory effort Auscultation: clear to auscultation bilaterally Cardio Jugular venous distension: no JVD Rate: regular rate Rhythm: regular rhythm Heart sounds: S1 normal heart sound present and S2 normal heart sound present Extrem General: Yes full ROM Results AMB Hemoglobin A1c AMB Hemoglobin A1c 6.3 % Last Edit by CL Thompson on 01/25/25 17:18 Results Reviewed Results Reviewed: Laboratory Last Values Hgb A1c (Clinic) 6.3 % (4.0-6.0) H 01/25/25 17:18 Coding Level of Care Code Est Pt Level 4 (01942) Complex EM visit Add On G2211 Diagnoses Type 2 diabetes mellitus without complication, without long-term current use of insulin E11.9 Diabetes mellitus type: type 2 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 insulin use: without exterminator helper termite use Diabetes mellitus complication status: without complication Hypothyroidism, unspecified type E03.9 Hypothyroidism type: unspecified NSTEMI (non-ST elevated myocardial infarction) I21.4 Essential hypertension I10 Hyperlipidemia LDL goal <70 E78.5 Lumbar radiculopathy M54.16 Additional Codes CHRISTIAN-7 Assessment Billing - CHRISTIAN-7 Assessment Tool: CHRISTIAN-7 Assessment [id number] ([id number]) PHQ-9 - 65575 - PHQ-9 Billing: Yes ([id number]) Time Spent (min) 23 Assessment & Plan Assessment & Plan (1) Diabetes mellitus: Code(s): E11.9 - Type 2 diabetes mellitus without complications Category: Medical Qualifiers: Diabetes mellitus type: type 2 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 insulin use: without fdc use Diabetes mellitus complication status: without complication Qualified Code(s): E11.9 - Type 2 diabetes mellitus without complications (2) Hypothyroidism: Code(s): E03.9 - Hypothyroidism, unspecified Category: Medical Qualifiers: Hypothyroidism type: unspecified Qualified Code(s): E03.9 - Hypothyroidism, unspecified (3) NSTEMI (non-ST elevated myocardial infarction): Code(s): I21.4 - Non-ST elevation (NSTEMI) myocardial infarction Category: Medical (4) Essential hypertension: Code(s): I10 - Essential (primary) hypertension Category: Medical (5) Hyperlipidemia LDL goal <70: Code(s): E78.5 - Hyperlipidemia, unspecified Category: Medical (6) Lumbar radiculopathy: Code(s): M54.16 - Radiculopathy, lumbar region Category: Medical Plan Continue current meds. Discontinue gabapentin. Start pregabalin. Labs ordered. Orders: Orders AMB Hemoglobin A1c 01/25/25 Z13.9 - Encounter for screening, unspecified Lipid Panel 01/25/25 E78.5 - Hyperlipidemia, unspecified Vitamin D 25-OH Total 01/25/25 E55.9 - Vitamin D deficiency, unspecified Comprehensive [place]. Panel Fast 01/25/25 I10 - Essential (primary) hypertension Thyroid Stimulating Hormone 01/25/25 E03.9 - Hypothyroidism, unspecified Medications: New linaclotide 72 mcg PO DAILY 30 caps 0RF 30 days K59.04 - Chronic idiopathic constipation pregabalin 75 mg PO BID 60 caps 0RF 30 days M54.16 - Radiculopathy, lumbar region Discontinued colchicine (Colcrys) Discontinued Reason: Patient Completed Course 0.6 mg PO DAILY 30 tabs 3RF azithromycin Take 2 tabs the first day, then 1 tab the next 4 days Discontinued Reason: Patient Completed Course 250 mg PO DAILY 5 days 6 tabs 0RF gabapentin Discontinued Reason: Patient Completed Course 300 mg PO TID 30 days 90 caps 2RF
== END 2025-01-25 17:43 | disposition home or self-care (01) ==
PROVIDERS: PCP Internal Medicine; Visit Provider Internal Medicine
DX: Z13.9 Encounter for screening, unspecified (principal)

== ENCOUNTER → 2025-01-25 16:49 | Outpatient (BNVA) | payer OTHER, SELFPAY | PROVIDERS: PCP Internal Medicine; Visit Provider Internal Medicine | DX: E11.9 Type 2 diabetes mellitus without complications (principal); E03.9 Hypothyroidism, unspecified; I10 Essential (primary) hypertension; E78.5 Hyperlipidemia, unspecified; I25.2 Old myocardial infarction; M54.16 Radiculopathy, lumbar region; K59.04 Chronic idiopathic constipation | CPT/HCPCS: 83036; 96127 ==